=== PATIENT | male | born 1995 | race Caucasian/White ===

== ENCOUNTER → 2020-07-24 15:15 | Outpatient (CLI) | payer OTHER, SELFPAY ==
[2016-10-13 18:40] VITALS: BMI 20.3
[2020-07-24 16:06] LABS: Absolute Lymphocyte Count 2.85 X10^3/uL (0.83-4.51); Basophil# 0.03 X10^3/uL; Basophil% 0.2 % (0-1); Eosinophil# 0.25 X10^3/uL; Hematocrit 46.8 % (40-54); Lymphocyte # 2.85 X10^3/ul (4.0); Lymphocyte % 22.9 % (19-41); Mean Corp Hgb Conc 34.2 g/dL (32-36); Mean Corpuscular Hgb 30.7 pg (27.0-32.0); Mean Corpuscular Volume 89.8 fL (80-94); Mean Platelet Vol. 9.3 fl (6.2-12.0); Monocyte# 1.29 X10^3/uL; Monocyte% 10.4 % (0-10); NRBC Flagged by Analyzer 0 % (0-5); Neutrophil % 64.2 % (47-70); Platelet Count 232 K/mm3 (150-450); RBC Distribution Width CV 11.9 % (11.6-14.6); RBC Distribution Width SD 38.5 fl (35.1-43.9); Red Blood Count 5.21 M/mm3 (4.6-6.2); White Blood Count 12.5 K/mm3 (4.4-11.0)
[2020-07-24 16:35] LABS: ALB/GLOB Ratio 1.3 RATIO (0.9-2.4); AST(SGOT) 15 U/L (15-37); Alanine Aminotransfer ALT/SGPT 24 U/L (16-61); Albumin, Serum 4.2 g/dL (3.2-5.0); Alkaline Phosphatase 62 U/L (45-117); Anion Gap 6 (5-15); BUN 12 mg/dL (7-18); BUN/Creat Ratio 10.4 RATIO (10-20); Calcium,Total 9.4 mg/dL (8.5-10.1); Chloride 106 mmol/L (98-107); Cholesterol 146 mg/dL (200); Creatinine, Serum 1.15 mg/dL (0.70-1.30); EST Glomerular Filtration Rate 81 mL/min (>60); Est Glom Filt Rate - Afr Amer 98 mL/min (>60); Globulin 3.3 g/dL (2.2-4.2); Glucose 61 mg/dL (74-106); High Density Lipoprotein 57 mg/dL; Potassium 3.9 mmol/L (3.5-5.1); Protein, Total 7.5 g/dL (6.4-8.2); Sodium Level 143 mmol/L (136-145); Thyroid Stim Hormone (TSH) 1.22 uIU/mL (0.358-3.74); Triglycerides 129 mg/dL; Very Low Density Lipoprotein 26 mg/dL (5-40)
[2020-07-25 08:04] LABS: Vitamin B12 395 pg/mL (211-911); Vitamin D,25 Hydroxy 52.4 ng/mL
== END ==
PROVIDERS: PCP Family Medicine
DX: F31.13 Bipolar disorder, current episode manic without psychotic features, severe (principal); Z79.899 Other long term (current) drug therapy
CPT/HCPCS: 36415; 80053; 80061; 82306; 82607; 82746; 84146; 84443; 85025

== ENCOUNTER 2021-11-23 16:11 | Outpatient (CLI) | payer OTHER, SELFPAY ==
--- NOTE | 2021-11-23 16:50 | RAD_ITS ---
STUDY: XR Knee Complete 4 Views or More 11/23/2021 5:29 PM REASON FOR EXAM: Male, 25 years old. PAIN TECHNIQUE: XR Knee Complete 4 Views or More COMPARISON: None. FINDINGS: Normal visualized distal femur. Normal visualized proximal tibia and fibula. Normal proximal tibiofibular articulation. Normal medial femorotibial compartment. Normal lateral femorotibial compartment. Normal patellofemoral articulation. The soft tissue structures are unremarkable. RAD/Knee 4 or More Views IMPRESSION: There are no acute findings. Electronically Signed: Shoaib Diaz MD at 17:30 EST , Service support ,
== END 2021-11-23 23:59 | disposition short-term general hospital (02) ==
PROVIDERS: PCP Family Medicine; Referring Provider Physician Assistant; Visit Provider Physician Assistant
DX: M25.461 Effusion, right knee (principal)
CPT/HCPCS: 73564

== ENCOUNTER 2022-11-11 15:29 | Emergency (ER) | payer OTHER, SELFPAY ==
[2022-11-11 15:29] VITALS: BP 134/70; PULSE 61; RESP 18; TEMP 36.6; O2SAT 99; BMI 22.4
--- NOTE | 2022-11-11 15:38 | EX.ED.UPPERE ---
HPI History of Present Illness Chief Complaint: Wound Informant: patient and spouse/S.O. Narrative Narrative: Patient presents after accidentally putting a drill bit through his left nondominant hand thumb shortly before arrival. The bit broke causing the drill to moved to the side causing injury. He denies numbness tingling or limitation in range of motion but moving the thumb does hurt more. No active bleeding. Last tetanus is unknown. Denies any other injury or recent illness. Review of systems does indicate prior surgery on the right hand but none on the left. He is also on Dupixent for eczema. But he has not been ill recently. No abnormal history of bleeding. No known major immunosuppression other than possible mild suppression from Dupixent. No numbness or weakness. Past medical history: Eczema Medication Dupixent Allergies: None Surgery plate right hand, vasectomy Lives independently. PFSH PFS Medical History no medical history Home Medications naproxen 500 mg tablet 500 mg PO BID PRN #20 tabs 10/13/16 [Rx Last Taken Unknown] cephalexin 500 mg capsule 500 mg PO Q6 #40 caps 11/11/22 [Rx Last Taken Unknown] Allergy/AdvReac Type Severity Reaction Status Date / Time No Known Allergies Allergy Verified 11/11/22 15:31 Social History Smoking Status: Never smoker EXAM Physical Exam Narrative Exam Narrative: Patient awake alert no acute distress. He walks back easily with a normal based gait. No sign of head trauma. Breathing is easy and unlabored. No limitation of motion of arms or legs. He does have a small hole through the left thumb both in and out. This is in the lateral portion of the thumb overlying the proximal phalanx area. Sensation is intact distally. Full range of motion including opposing thumb is intact. Flexion extension is intact. No notable swelling. No bleeding. Const Vital Signs: 11/11/22 15:29 Temperature 98 F Temperature Source Temporal Pulse Rate 61 Respiratory Rate 18 Blood Pressure 134/70 H Blood Pressure Mean 91 Pulse Ox 99 Oxygen Delivery Method Room Air MDM MDM MDM Narrative Medical decision making narrative: Tetanus is updated as it is unknown when he last had this. We did initiate antibiotics due to the close nature of this wound and difficulty cleaning that out. X-ray will be obtained. My independent interpretation of this patient's three-view x-ray of his left thumb shows no sign of bony involvement. I do not see any foreign material. I see no air in the tissue. There looks to be an avulsion fracture from the volar distal phalanx but this does not look new and is clinically not present. Radiology interpretation is pending at this moment. I also reviewed our chart for important information. This verifies that the surgery done in his hand back in May 2014 was the right hand and not the hand that was injured today. I did talk with this patient that this is a risk for infection. These puncture wounds do not clean easily. I cannot do incision and drain of these. I could do more damage than good. He is being watched here. We initiated antibiotics early. We gave him tetanus. I will get him home on antibiotics. If he gets redness, swelling, increased pain, drainage, odor, fevers, red streak up his finger or hand or arm or any other concerns he should return. Final reading by radiology also was negative x-ray of finger. Discharge Plan Triage Chief Complaint: Wound ED Provider: Lorenzo Rowe Dx/Rx/DC Orders Clinical Impression: Puncture wound of left thumb, Accident caused by drilling tool Instructions: ED Puncture Wound (General) Prescriptions: New cephalexin [cephalexin] 500 mg capsule 500 mg PO Q6 Qty: 40 0RF No Action naproxen 500 MG tablet 500 mg PO BID PRN Qty: 20 0RF Primary Care Provider: Saeid Fowler Referrals: Pablo Roes MD [Med Staff - Active Staff] - 3-5 Days Saeid Fowler MD [Primary Care Provider] - 3-5 Days if not improving Disposition Disposition: Home, Self Care
--- NOTE | 2022-11-11 16:02 | RAD_ITS ---
EXAM: XR LEFT FINGERS, 2 OR MORE VIEWS CLINICAL INDICATION: Trauma TECHNIQUE: Frontal, lateral and oblique views of the fingers of the left hand. This report was created using [employer] report generation technology. COMPARISON: None. FINDINGS: BONES/JOINTS: Unremarkable. No acute fracture. No subluxation. Normal alignment. Preservation of the joint space. No sclerotic or destructive changes observed. SOFT TISSUES: Unremarkable. No soft tissue swelling or gas. No radiopaque foreign body. RAD/Finger(s) Min 2 Views IMPRESSION: Negative x-rays of the visualized left fingers. Electronically Signed: Shoaib Diaz MD at 16:15 EST ,
[2022-11-11] MEDS: Cephalexin 250 MG Capsule 500 MG PO (16:18)
[2022-11-11 16:43] VITALS: PULSE 68; RESP 17; O2SAT 99
== END 2022-11-11 17:12 | disposition home or self-care (01) ==
LOC: ED 16:04
PROVIDERS: Emergency Provider Emergency Medicine; PCP Family Medicine; Visit Provider Emergency Medicine
DX: S61.032A Puncture wound without foreign body of left thumb without damage to nail, initial encounter (principal); L30.9 Dermatitis, unspecified; W29.8XXA Contact with other powered hand tools and household machinery, initial encounter
CPT/HCPCS: 73140; 90715; 99283

== ENCOUNTER → 2025-03-26 | Outpatient (CLI) | payer OTHER, SELFPAY ==
--- NOTE | 2025-03-26 08:10 | RAD_ITS ---
PROCEDURE: CHEST PA AND LATERAL 03/26/2025 REASON FOR EXAM: COUGH TECHNIQUE: Frontal and lateral views of the chest. COMPARISON: None FINDINGS: Hardware: None Heart: The heart size is normal. Mediastinum: The mediastinal contour is unremarkable. Lungs: The lungs are clear. Bones: The bones are unremarkable. RAD/Chest PA and Lateral IMPRESSION: NEGATIVE CHEST Reading Location: [place] [id number]
== END | disposition home or self-care (01) ==
LOC: RAD 07:59
PROVIDERS: PCP Family Medicine; Referring Provider Nurse Practitioner Family; Visit Provider Nurse Practitioner Family
DX: R05.1 Acute cough (principal)
CPT/HCPCS: 71046

== ENCOUNTER 2025-05-01 19:08 | Emergency (ER) | payer OTHER, SELFPAY ==
[2025-05-01 19:09] VITALS: BP 131/77; PULSE 75; RESP 14; TEMP 36.6; O2SAT 100; BMI 25.2
--- OUTSIDE RECORDS SUMMARY | 2025-05-01 19:23 | XMS RPT_ITS | CCD ---
Author Organization [facility] Care Team Providers Care Scenario Writer Name Role Phone Tammy Fowler MD Primary Care Provider Tammy Fowler MD Primary Care Provider Tera SOCIAL ORGANIZATION PROFESSOR.Sybil ALAS Unavailable Werner SOCIAL ORGANIZATION PROFESSOR.Cinda ALAS Unavailable [phone] Dr. Tammy Fowler MD Primary Care Provider Linsey Clemens Attending Provider Linsey Clemens Referring Provider LINSEY VAUGHN Referring Unavailable TAMMY FOWLER Primary Care Unavailable TAMMY FOWLER Primary Care Unavailable LINSEY VAUGHN Attending Unavailable CINDA CALDERA Attending Unavailable TAMMY FOWLER Primary Care Unavailable CINDA CALDERA Attending Unavailable TAMMY FOWLER Primary Care Unavailable Tammy Fowler Primary Care Unavailable Linsey Vaughn Referring Unavailable Linsey Vaughn Attending Unavailable Medications Current Medications Medication Drug Class(es) Dates Sig (Normalized) Sig (Original) atomoxetine 40 mg oral capsule (1 source) Norepinephrine Reuptake Inhibitor Start: 01-07-2025 End: 02-06-2025 take 1 capsule by mouth once daily atomoxetine (STRATTERA) 40 mg capsule Indications: ADHD (attention deficit hyperactivity disorder), predominantly hyperactive impulsive type Take 1 capsule by mouth once daily. 30 capsule 01/07/2025 02/06/2025 Active cephalexin 500 mg oral capsule (2 sources) Cephalosporin Antibacterial Start: 11-11-2022 take 1 capsule by mouth every six hours Cephalexin 500 mg capsule Active 500 mg PO EVERY 6 HOURS 40 November 11, 2022 1:00am diazePAM 10 mg oral tablet (1 source) Benzodiazepine Start: 08-03-2022 End: 08-04-2022 diazePAM (VALIUM) 10 mg tablet Indications: Vasectomy evaluation 1 tab prior to Vasectomy Do not start before August 03, 2022. 1 tablet 0 08/03/2022 08/04/2022 Active Comment on above: 1 tab prior to Vasec chloe Do not start before August 03, 2022. doxycycline hyclate 100 mg oral capsule (1 source) Tetracycline-class Drug Start: 01-28-2024 End: 02-04-2024 take 1 capsule by mouth twice daily doxycycline hyclate (VIBRAMYCIN) 100 mg capsule Indications: Sinobronchitis Take 1 capsule by mouth two times a day for 7 days. 14 capsule 0 01/28/2024 02/04/2024 Active Comment on above: Take 1 capsule by mo [facility] two times a day for 7 days. 2 ml dupilumab 150 mg/ml auto-injector (9 sources) Interleukin-4 Receptor alpha Antagonist Start: 04-12-2022 inject 300 mg by subcutaneous injection every other week DUPIXENT PEN 300 mg/2 mL pen Inject 300 mg subcutaneously every 2 weeks. 04/12/2022 Active Comment on above: Inject 300 mg subcut aneously every 2 weeks. multivitamin tablet (9 sources) take 1 tablet by mouth once daily multivitamin tablet Take 1 tablet by mouth once daily. Active take 1 tablet by mouth once giovana y multivitamin tablet Take 1 tablet by mouth once daily. 0 Active Comment on above: Take 1 tablet by yan once daily. naproxen 500 mg oral tablet (2 sources) Nonsteroidal Anti-inflammatory Drug Start: 10-13-20 16 take 1 tablet by mouth twice daily as needed Naproxen 500 MG tablet Active 500 mg PO TWICE DAILY NEEDED October 13, 2016 1:00am predniSONE 20 mg oral tablet (1 source) Start: 01-28-20 24 End: 02-01-20 24 take 2 tablets by mouth once daily at mealtime predniSONE (DELTASONE) 20 mg tablet Indications: Sinobronchitis Take 2 tablets by mouth once daily for 4 days. Take daily with food. 8 tablet 0 01/28/2024 02/01/2024 Active Comment on above: Take 2 tablets by mo [facility] once daily for 4 days. Take daily with food. Completed/Discontinued Medications Medication Drug Class(es) Dates Sig (Normalized) Sig (Original) FLUoxetine 40 mg oral capsule (9 sources) Serotonin Reuptake Inhibitor Start: 07-16-2024 End: 01-07-2025 take 1 capsule by mouth once daily FLUoxetine (PROZAC) 40 mg capsule Indications: Anxiety with depression , Irritability Take 1 capsule by mouth once daily. 90 capsule 07/16/2024 01/07/2025 Discontinued (Discontinued by Patient) Start: 06-11-2024 End: 09-09-2024 take 1 capsule by mouth once daily FLUoxetine (PROZAC) 20 mg capsule Indications: Anxiety with depression , Irritability Take 1 capsule by mouth once daily. 90 capsule 06/11/2024 07/16/2024 Discontinued (Adjust Sig - Block E-Cancel) Start: 02-28-2024 End: 06-11-2024 take 1 capsule by mouth once daily FLUoxetine (PROZAC) 10 mg capsule Indications: Irritability Take 1 capsule by mouth once daily. 30 capsule 2 02/28/2024 06/11/2024 Discontinued (Clinical Decision) sertraline 100 mg oral tablet (1 source) Serotonin Reuptake Inhibitor End: 05-22-2022 take 1 tablet by mouth once daily sertraline (ZOLOFT) 100 mg tablet Take 100 mg by mouth once daily. 0 05/22/2022 Discontinued Comment on above: Take 100 mg by mouth once daily. Problems Active Problems Problem Classification Problem Date Documented Date Episodic/Chronic Anxiety disorders (5 sources) Mixed anxiety and depressive disorder; Translations: [Other specified anxiety disorders] Onset: 06-11-2024 06-11-2024 Chronic Attention-deficit, conduct, and disruptive behavior disorders (1 source) Attention deficit hyperactivity disorder, predominantly hyperactive impulsive type; Translations: [Attention-deficit hyperactivity disorder, predominantly hyperactive type] 01-07-2025 Chronic Attention-deficit, conduct, and disruptive behavior disorders (1 source) Attention-deficit hyperactivity disorder, predominantly hyperactive type; Translations: [ADHD (attention deficit hyperactivity disorder), predominantly hyperactive impulsive type] Onset: 01-07-2025 Chronic Contraceptive and procreative management (4 sources) Patient encounter status; Translations: [Encounter for other general counseling and advice on contraception] Episodic E Codes: Cut/pierceb (2 sources) Accidents caused by cutting and piercing instruments or objects ; Translations: [Contact with other powered hand tools and household machinery, initial encounter] 01-16-2023 Episodic Headache; including migraine (2 sources) Headache; Translations: [Headache] 04-27-2021 Episodic Open wounds of extremities (2 sources) Puncture wound of thumb of left hand; Translations: [Puncture wound without foreign body of left thumb without damage to nail, initial encounter] 11-19-2022 Episodic Other circulatory disease (2 sources) Nasal discharge; Translations: [Other specified symptoms and signs involving the circulatory and respiratory systems] 03-17-2021 Episodic Other circulatory disease (1 source) Elevated blood-pressure reading without diagnosis of hypertension; Translations: [Elevated blood-pressure reading, without diagnosis of hypertension] 01-07-2025 Episodic Other circulatory disease (1 source) Elevated blood-pressure reading, without diagnosis of hypertension; Translations: [Elevated blood pressure reading without diagnosis of hypertension] Onset: 01-07-2025 Episodic Other lower respiratory disease (2 sources) Cough; Translations: [Cough] 03-17-2021 Episodic Other upper respiratory disease (2 sources) Congestion of nasal sinus; Translations: [Nasal congestion] 03-17-2021 Episodic Other upper respiratory infections (1 source) Chronic sinusitis; Translations: [Chronic sinusitis, unspecified] 01-28-2024 Chronic Other upper respiratory infections (2 sources) Sore throat symptom; Translations: [Acute pharyngitis, unspecified] 03-17-2021 Episodic Otitis media and related conditions (1 source) Finding of fluid behind tympanic membrane; Translations: [Unspecified nonsuppurative otitis media, left ear] 01-28-2024 Episodic Screening and history of mental health and substance abuse codes (2 sources) Encounter for screening for depression; Translations: [Encounter for screening examination for other mental health and behavioral disorders] Onset: 01-07-2025 Episodic Superficial injury; contusion (2 sources) Contusion of foot; Translations: [Contusion of right foot, initial encounter] 10-14-2016 Episodic Unclassified (2 sources) Acute cough; Translations: [Acute cough] Onset: 03-26-2025 Past or Other Problems Problem Classification Problem Date Documented Da te Episodic/Chronic Anxiety disorders (5 sources) Feeling irritable; Translations: [Irritability and anger] Onset: 06-11-2024 06-11-2024 Episodic Other lower respiratory disease (6 sources) Breathing painful; Translations: [Chest pain on breathing] Onset: 09-11-2010 Resolved: 04-07-2018 04-07-2018 Episodic Results Test Name Value Interpretation Reference Range Walter Loredo 03-26-2025 CNOV Office Visit (UCTR ) DENTON JOLLEY ([id number]) 1995 M Date Time Provider Department 03/26/25 7:30 AM LINSEY VAUGHN [facility] During your visit today, we recorded the following information about you: Temperature Pulse Respiration Blood pressure 97.4 degrees 54/minute 18/minute 133/82 Weight 83.8 kg Linsey Vaughn APRN.[facility] 03/26/2025 9:23 AM Signed [facility] Subjective Denton Jolley is a 29 year old male. Patient presents with: Cough: Head and chest congestion x3 weeks HPI Dyspnea: - Onset this morning while driving to work. - Occurs at rest, worsens with exertion such as climbing stairs. - Denies history of asthma. - Denies smoking. Sinus Congestion: - Bilateral facial congestion x3 weeks. - Associated with significant pressure causing pounding sensation in upper teeth. - Denies odynophagia. Review of Systems Ears/Nose/Mouth/Throa t: (+) congestion, (+) tooth pain, (+) sinus pressure, (-) sore throat Respiratory: (+) shortness of breath Objective BP 133/82 Pulse (!) 54 Temp 36.3 ?C (97.4 ?F) Resp 18 Wt 83.8 kg (184 lb 11.9 oz) SpO2 100% BMI 25.06 kg/m? Physical Exam General: No acute distress. HEENT: Oropharynx without erythema. CV: Normal heart sounds. Resp: Lungs clear to auscultation. {1. Acute cough (R05.1) - Shortness of breath at rest and with exertion; lungs clear on auscultation, heart sounds normal. - Ordered chest X-ray to rule out pneumonia; results negative. 2. Rhinosinusitis (J32.9) - Congestion for 3 weeks with pressure in cheeks and forehead, associated with dental pain. - Initiated doxycycline BID for 7 days. - Advised to follow up with primary care if symptoms worsen or do not improve. and Recording using [employer] software for draft documentation of the visit was discussed with the patient/authorized inventory representative; all questions welcomed and answered. Patient/authorized inventory representative agreed to proceed MDM Procedures Allergies As of Date: 03/26/2025 (No Known Allergies) Date Reviewed: 03/26/2025 Reviewed by: Latanya Zeng MA - Fully Assessed Reason for Visit: Cough [28] Cmt: Head and chest congestion x3 weeks Primary Visit Diagnosis:Acute cough [R05.1] Other Visit Diagnosis:Rhinosinusi tis [J32.9] Order(s):XR CHEST 2V FRONTAL/LAT [[id number]] Order #: [id number] FUTURE doxycycline (VIBRA-TABS) 100 mg tabletTake 1 tablet by mouth two times a day for 7 days.Disp: 14 tabletRfl: 0 Prescriptions as of 03/26/2025 - doxycycline (VIBRA-TABS) 100 mg tablet Take 1 tablet by mouth two times a day for 7 days. - atomoxetine (STRATTERA) 40 mg capsule Take 1 capsule by mouth once daily. - DUPIXENT PEN 300 mg/2 mL pen Inject 300 mg subcutaneously every 2 weeks. - multivitamin tablet Take 1 tablet by mouth once daily. Problem List As Of Date 03/26/2025 Noted Resolved Painful respiration [R07.1] 09/11/2010 04/07/2018 Prescriptions ordered this encounter Disp Refills Start End DOXYCYCLINE HYCLATE 100 MG TABLET 14 t* 0 03/26/2025 04/02/2025 Route: ORAL Sig: Take 1 tablet by mouth two times a day for 7 days. Encounter Status:Closed by LINSEY VAUGHN on 03/26/25 [facility] 03-26-2025 [place] Telephone (UCWSTR) DENTON JOLLEY ([id number]) 1995 M Date Time Provider Department 03/26/25 LINSEY VAUGHN [facility] During your visit today, we recorded the following information about you: Linsey Vaughn APRN.PROCESS SAFETY ENGINEERING TECHNOLOGIST 03/26/2025 9:24 AM Signed Please call let patient know he is negative for chest x-ray. Let patient know I called in doxycycline twice a day for a week for his sinus infection. If his symptoms do not improve follow-up with primary care Linsey Vaughn APRN.PROCESS SAFETY ENGINEERING TECHNOLOGIST 03/26/2025 10:27 AM Signed Called back talked to patient about negative chest x-ray. Did update patient on medications that were called in. Patient denies any questions. Allergies As of Date: 03/26/2025 (No Known Allergies) Date Reviewed: 03/26/2025 Reviewed by: Latanya Zeng MA - Fully Assessed Prescriptions as of 03/26/2025 - doxycycline (VIBRA-TABS) 100 mg tablet Take 1 tablet by mouth two times a day for 7 days. - atomoxetine (STRATTERA) 40 mg capsule Take 1 capsule by mouth once daily. - DUPIXENT PEN 300 mg/2 mL pen Inject 300 mg subcutaneously every 2 weeks. - multivitamin tablet Take 1 tablet by mouth once daily. Problem List As Of Date 03/26/2025 Noted Resolved Painful respiration [R07.1] 09/11/2010 04/07/2018 Encounter Status:Closed by LINSEY VAUGHN on 03/26/[address] [facility] Chest PA and Lateralon 03-26 Chest PA and Lateral [facility] Imaging Services [address] [place] [id number] Chest PA and Lateral MR#: [id number] Acct: [id number] Name: DENTON JOLLEY Rep #: [id number] : 1995 M 29 From: Tyrel warren MD PCP: Dr. Tammy Fowler MD Status: [facility] Study: Chest PA and Lateral Date of Exam: 03/26/25 Exam# [id number] Ordering Dr: Linsey Vaughn NP PROCEDURE: CHEST PA AND LATERAL 03/26/2025 REASON FOR EXAM: COUGH TECHNIQUE: Frontal and lateral views of the chest. COMPARISON: None FINDINGS: Hardware: None Heart: The heart size is normal. Mediastinum: The mediastinal contour is unremarkable. Lungs: The lungs are clear. Bones: The bones are unremarkable. RAD/Chest PA and Lateral IMPRESSION: NEGATIVE CHEST Reading Location: [place] [address] CC: SUSU Vaughn; Dr. Tammy Fowler MD Collar Trimmer: Signed Normal [facility] CNOVon 01-07-2025 CNOV Office Visit (FAMPWS ) DENTON JOLLEY ([id number]) 1995 M Date Time Provider Department 01/07/25 4:20 PM [facility] During your visit today, we recorded the following information about you: Temperature Pulse Blood pressure Weight 97.8 degrees 68/minute 140/78 85.3 kg Cinda Caldera APRN.[facility] 01/07/2025 4:52 PM Signed This is a 29 year old male who presents today with: Patient presents with: ADD/ADHD HISTORY OF PRESENT ILLNESS: Denton Bryant Ibrahima is a 29 year old male. Patient presents with: ADD/ADHD [place] like fluoxetine just numbed him out. Behavior was flat. Didn't help his racing mind Hyper- focus- if he can't complete that day, he can't cope Very clean- maybe OCD, messing with relationship Forgetful Edgy Fidgets Can;t sit still, mind always somewhere else- looking for next thing Easily distracted, no MVA Impulsive buying Interrupts conversation Impatient Mood swings Quick temper Teachers told him that he didn't pay attention Impulsive Worried about heart problems Dad 66- CABG Mom 56- valvular heart disease, CHF Gets chest pain- not related to exertion PAST MEDICAL HISTORY: PAST MEDICAL HISTORY Diagnosis Date Atopic eczema 2020 Depression PMH - PAST MEDICAL HISTORY OF 06/27/2001 normal color vision PAST SURGICAL HISTORY Procedure Laterality Date PAST SURGICAL HISTORY OF right hand TONSILLECTOMY PRIMARY/SECONDARY ALLERGIES Patient has no known allergies. MEDICATIONS Current Outpatient Medications Medication Sig FLUoxetine (PROZAC) 40 mg capsule Take 1 capsule by mouth once daily. DUPIXENT PEN 300 mg/2 mL pen Inject 300 mg subcutaneously every 2 weeks. (Patient taking differently: Inject 300 mg subcutaneously. Pt taking monthly or when having a flare up) multivitamin tablet Take 1 tablet by mouth once daily. No current facility-administered medications for this visit. FAMILY HISTORY Problem Relation Age of Onset other (murmur) Mother Social History Tobacco Use Smoking status: Never Smokeless tobacco: Never Vaping Use Vaping status: Never Used Substance Use Topics Alcohol use: Yes Comment: 1-2 beers per month Drug use: Not Currently EXAM: BP 140/78 Pulse 68 Temp 36.6 ?C (97.8 ?F) (Right Tympanic) Wt 85.3 kg (188 lb) SpO2 100% BMI 25.50 kg/m? PHYSICAL EXAM: Physical Exam Vitals reviewed. Constitutional: Appearance: Normal appearance. HENT: Head: Normocephalic. Cardiovascular: Rate and Rhythm: Normal rate and regular rhythm. Pulses: Normal pulses. Heart sounds: Normal heart sounds. Pulmonary: Effort: Pulmonary effort is normal. Breath sounds: Normal breath sounds. Abdominal: General: Bowel sounds are normal. Palpations: Abdomen is soft. Tenderness: There is no abdominal tenderness. There is no guarding or rebound. Musculoskeletal: General: Normal range of motion. Comments: Moves all ext. And walks w/o assistive device Skin: General: Skin is warm and dry. Neurological: Mental Status: He is alert and oriented to person, place, and time. LABS: ASSESSMENT/PLAN: 1. Elevated blood pressure reading without diagnosis of hypertension - ICD9: 796.2, ICD10: R03.0 (primary diagnosis) - Encouraged dietary sodium restriction/DASH diet - Recommended regular aerobic exercise. - Recommend home blood pressure monitoring, to bring results in on next visit - Goal of BP <130/80 - DME SUPPLY OR ACCESSORY, NOS send in 3 BP readings 2. Screening for depression - ICD9: V79.0, ICD10: Z13.31 Stable - DEPRESSION SCREENING 3. Encounter for screening examination for other mental health and behavioral disorders - ICD9: V79.8, ICD10: Z13.39 Stable - ANXIETY SCREENING 4. ADHD (attention deficit hyperactivity disorder), predominantly hyperactive impulsive type - ICD9: 314.01, ICD10: F90.1 Wanting to try ADHD medication - ATOMOXETINE 40 MG CAPSULE daily Discussed treatment plan and patient voices understanding. Patient's questions answered appropriately. Medications and potential side effects were discussed and patient voices understanding. Return to the office as scheduled or as needed for worsening/no improvement. ZEV Dyer Jacqueline A, APRN.CNP 01/07/2025 4:52 PM Addendum 1) Strattera 40 mg daily 2) DME- BP cuff sent to [facility] D[facility] store 3) Send me 3 BP readings in 1 or 2 weeks Allergies As of Date: 01/07/2025 (No Known Allergies) Date Reviewed: 01/07/2025 Reviewed by: Lori Wilkes MA - Fully Assessed Reason for Visit: ADD/ADHD [790] Primary Visit Diagnosis:Elevated blood pressure reading without diagnosis of hypertension [R03.0] Other Visit Diagnoses:Screening for depression [Z13.31] Encounter for screening examination for other mental health and behavioral disorders [Z13.39] ADHD (attention deficit hyperactivity disorder) (more content not included)... [facility] 07-16-2024 [facility] Telephone (ERIC) DENTON JOLLEY ([id number]) 1995 Date Time Provider Department [facility] During your visit today, we recorded the following information about you: Yoselin Dietrich 07/16/2024 3:56 PM Signed Patient said he was told his rx fluoxetine [address] [facility]. It was updated in chart, but not sent. He would like a call back at [phone] when sent. Tammy Fowler MD 07/16/2024 4:20 PM Signed Sorry sent Ej Faria MA 07/16/2024 4:33 PM Signed Called and left generic message on that Rx has been sent to Pharmacy as requested. If questions to contact office and speak with Triage Nurse. Ej Faria MA Allergies As of Date: 07/16/2024 (No Known Allergies) Date Reviewed: 06/11/2024 Reviewed by: Cinda Caldera APRN.PROCESS SAFETY ENGINEERING TECHNOLOGIST - Fully Assessed Reason for Visit: Rx updated, but not sent to pharmacy [Other] Visit Diagnoses:Anxiety with depression [F41.8] Irritability [R45.4] Order(s):FLUoxetine (PROZAC) 40 mg capsuleTake 1 capsule by mouth once daily.Disp: 90 capsuleRfl: 0 Prescriptions as of 07/16/2024 - FLUoxetine (PROZAC) 40 mg capsule Take 1 capsule by mouth once daily. - DUPIXENT PEN 300 mg/2 mL pen Inject 300 mg subcutaneously every 2 weeks. - multivitamin tablet Take 1 tablet by mouth once daily. Problem List As Of Date 07/16/2024 Noted Resolved Painful respiration [R07.1] 09/11/2010 04/07/2018 Prescriptions ordered this encounter Disp Refills Start End FLUOXETINE 40 MG CAPSULE 90 c* 0 07/16/2024 10/14/2024 Route: ORAL Sig: Take 1 capsule by mouth once daily. Medications Discontinued During This Encounter Prescriptions - FLUoxetine (PROZAC) 40 mg capsule (Discontinued) Take 1 capsule by mouth once daily. Encounter Status:[facility][id number]) 1995 M Date Time Provider Department 07/16/24 CINDA CALDERA [facility] During your visit today, we recorded the following information about you: Vanessa Soria LPN 07/16/2024 2:29 PM Signed Patient is wanting to increase to Fluoxetine to 40mg, feels he has leveled out, not really effects anymore. [facility] D[facility] took his last pill this AM, asking if RX could go today, Patient will check with pharmacy later. Tammy Garcia LPN, MD 07/16/2024 2:35 PM Signed Rx sent. Please schedule follow up with one of us Lori Wilkes MA 07/16/2024 3:09 PM Signed Spoke with pt and advised needed a one moth medication follow up. He will call back when he knows his 's schedule. Lori Wilkes MA Allergies As of Date: 07/16/2024 (No Known Allergies) Date Reviewed: 06/11/2024 Reviewed by: Cinda Caldera APRN.PROCESS SAFETY ENGINEERING TECHNOLOGIST - Fully Assessed Visit Diagnoses:Anxiety with depression [F41.8] Irritability [R45.4] Order(s):FLUoxetine (PROZAC) 40 mg capsuleTake 1 capsule by mouth once daily.Disp: 90 capsuleRfl: 0 Prescriptions as of 07/16/2024 - FLUoxetine (PROZAC) 40 mg capsule Take 1 capsule by mouth once daily. - DUPIXENT PEN 300 mg/2 mL pen Inject 300 mg subcutaneously every 2 weeks. - multivitamin tablet Take 1 tablet by mouth once daily. Problem List As Of Date 07/16/2024 Noted Resolved Painful respiration [R07.1] 09/11/2010 04/07/2018 Prescriptions ordered this encounter Disp Refills Start End FLUOXETINE 40 MG CAPSULE 90 c* 0 07/16/2024 10/14/2024 Class: Med Update Route: ORAL Sig: Take 1 capsule by mouth once daily. Medications Discontinued During This Encounter Prescriptions - FLUoxetine (PROZAC) 20 mg capsule (Discontinued) Take 1 capsule by mouth once daily. Encounter Status:Closed by LORI WILKES on 07/16/[address] [facility] CNOVon 06-11-2024 CNOV Office Visit (FAMPWS ) DENTON JOLLEY ([id number]) 1995 M Date Time Provider Department 06/11/24 3:40 PM [facility] During your visit today, we recorded the following information about you: Pulse Blood pressure Weight Height 68/minute 136/80 78.5 kg 1.829 m Cinda Caldera APRN.[facility] 06/11/2024 3:57 PM Signed This is a 28 year old male who presents today with: Patient presents with: Follow Up HISTORY OF PRESENT ILLNESS: Denton Jolley is a 28 year old male. Patient presents with: Follow Up Hyper- focus- some improvement Very clean- maybe OCD, messing with relationship Forgetful- no change Edgy- some improvement Fidgets- still noting Can;t sit still, mind always somewhere else- looking for next thing Easily distracted, no MVA Impulsive buying Interrupts conversation Impatient- some better Mood swings- some improvement Quick temper- some improvement Still sleeping good Exercising- lifting weights PAST MEDICAL HISTORY: PAST MEDICAL HISTORY No date: Atopic eczema Comment: 2020 No date: Depression 06/27/2001: PMH - PAST MEDICAL HISTORY OF Comment: normal color vision PAST SURGICAL HISTORY No date: PAST SURGICAL HISTORY OF Comment: right hand 2001: TONSILLECTOMY PRIMARY/SECONDARY ALLERGIES Patient has no known allergies. MEDICATIONS Current Outpatient Medications Medication Sig FLUoxetine (PROZAC) 10 mg capsule Take 1 capsule by mouth once daily. DUPIXENT PEN 300 mg/2 mL pen Inject 300 mg subcutaneously every 2 weeks. multivitamin tablet Take 1 tablet by mouth once daily. No current facility-administered medications for this visit. FAMILY HISTORY Problem Relation Age of Onset other (murmur) Mother Social History Tobacco Use Smoking status: Never Smokeless tobacco: Never Vaping Use Vaping Use: Never used Substance Use Topics Alcohol use: Yes Comment: 1-2 beers per month Drug use: Not Currently EXAM: BP 140/80 Pulse 68 Ht 182.9 cm (6') Wt 78.5 kg (173 lb) SpO2 98% BMI 23.46 kg/m? PHYSICAL EXAM: General Appearance: Well appearing, alert, in no acute distress, well-hydrated, well nourished.. Mood: good eye contact, pleasant, cooperative, oriented X 3, bright affect. Thoughts are organized, clear, direct, appropriate LABS: ASSESSMENT/PLAN: 1. Anxiety with depression - ICD9: 300.4, ICD10: F41.8 (primary diagnosis) - Increase fluoxetine to 20 mg daily 2. Irritability - ICD9: 799.22, ICD10: R45.4 Improvement - Increase fluoxetine to 20 mg daily Discussed treatment plan and patient voices understanding. Patient's questions answered appropriately. Medications and potential side effects were discussed and patient voices understanding. Return to the office as scheduled or as needed for worsening/no improvement. ZEV Dyer Jacqueline A, APRN.CNP 06/11/2024 3:57 PM Addendum 1) Increase fluoxetine to 20 mg daily 2) Follow up in 3 months Allergies As of Date: 06/11/2024 (No Known Allergies) Date Reviewed: 06/11/2024 Reviewed by: Cinda Caldera APRN.CNP - Fully Assessed Reason for Visit: Follow Up [171] Primary Visit Diagnosis:Anxiety with depression [F41.8] Other Visit Diagnosis:Irritabilit y [R45.4] Order(s):FLUoxetine (PROZAC) 20 mg capsuleTake 1 capsule by mouth once daily.Disp: 90 capsuleRfl: 0 Prescriptions as of 06/11/2024 - FLUoxetine (PROZAC) 20 mg capsule Take 1 capsule by mouth once daily. - DUPIXENT PEN 300 mg/2 mL pen Inject 300 mg subcutaneously every 2 weeks. - multivitamin tablet Take 1 tablet by mouth once daily. Problem List As Of Date 06/11/2024 Noted Resolved Painful respiration [R07.1] 09/11/2010 04/07/2018 Other instructions from your clinician: 1) Increase fluoxetine to 20 mg daily 2) Follow up in 3 months Prescriptions ordered this encounter Disp Refills Start End FLUOXETINE 20 MG CAPSULE 90 c* 0 06/11/2024 09/09/2024 Route: ORAL Sig: Take 1 capsule by mouth once daily. Medications Discontinued During This Encounter Prescriptions - FLUoxetine (PROZAC) 10 mg capsule (Discontinued) Take 1 capsule by mouth once daily. Level of Service: OFFICE/OUTPATIENT ESTABLISHED LOW MDM 20 MIN [26551] Disposition: Return in about 3 months (around 09/11/2024) for stress level. Follow-up and Disposition History for Encounter Date Provider Department Center 06/11/2024 [id number]-PZIDAOOLIVER CALDERA*FAMPWS [facility] [place] Encounter Status:Closed by CINDA CALDERA on 06/11/[address] [facility] CBC W Auto Differential pane l (Bld)on 02-28-2024 Basophils (Bld) [#/Vol] [facility] Basophils/100 WBC (Bld) 0.2 % [facility] Differential cell count method Nom (Bld) Auto [facility] Eosinophils (Bld) [#/Vol] 0.10 10*3/uL [facility] Eosinophils/100 WBC (Bld) 1.1 % [facility] Erythrocyte distribution width (RBC) [Ratio] 11.9 % 11.5 - 15.0 % [facility] Hematocrit (Bld) [Volume fraction] 46.1 % 39.0 - 51.0 % [facility] Hemoglobin (Bld) [Mass/Vol] 16.0 g/dL 13.0 - 17.0 g/dL [facility] Immature granulocytes (Bld) [#/Vol] 0.03 10*3/uL [facility] Immature granulocytes/100 WBC (Bld) 0.3 % [facility] Lymphocytes (Bld) [#/Vol] 3.16 10*3/uL [facility] Lymphocytes/100 WBC (Bld) 35.0 % [facility] MCH (RBC) [Entitic mass] 30.4 pg 26.0 - 34.0 pg [facility] MCHC (RBC) [Mass/Vol] 34.7 g/dL 30.5 - 36.0 g/dL [facility] MCV (RBC) [Entitic vol] 87.6 fL 80.0 - 100.0 fL [facility] Monocytes (Bld) [#/Vol] 0.77 10*3/uL [facility] Monocytes/100 WBC (Bld) 8.5 % [facility] Neutrophils (Bld) [#/Vol] 4.94 10*3/uL [facility] Neutrophils/100 WBC (Bld) 54.9 % [facility] Nucleated RBC (Bld) [#/Vol] NINF [facility] Nucleated RBC/100 WBC (Bld) [Ratio] 0.0 % /100 WBC [facility] Platelet mean volume (Bld) [Entitic vol] 10.5 fL 9.0 - 12.7 fL [facility] Platelets (Bld) [#/Vol] 226 10*3/uL [facility] RBC (Bld) [#/Vol] 5.26 10*6/uL 4.20 - 6.0 0 m/uL [facility] WBC (Bld) [#/Vol] 9.02 10*3/uL [facility] ALLIED HEALTHon 07-24-2020 ALLIED HEALTH HNO ID: [id number] Author: Lilly ReedRt) Mayi Tarango Service: Radiology Author Type: Color Card Maker Type: Allied Health Filed: 07/23/2020 11:27 PM Note Text: Radiology Service Progress Note PATIENT NAME: Denton Jolley DATE OF SERVICE: July 23, 2020 TIME: 11:26 PM PATIENT IDENTITY VERIFICATION COMPLETED USING TWO (2) IDENTIFIERS: Name and Date of confirmed by patient verbally. FALL SCREENING: Has the patient had 2 falls in the last year or 1 fall with injury or currently using an Ambulatory Assistive Device (Walker, Cane, Wheelchair, Crutches, etc.)? No PATIENT GENDER DATA: Male PATIENT RELEVANT IMPLANT DATA REVIEWED: Not Applicable RADIOLOGY DEPARTMENT: General X-ray: Exam(s) Completed: Lower Extremity X-Ray(s): Ankle, Right and Foot, Right: PERIPHERAL IV DATA: Not applicable SIGNED BY: RT Kassy July 23, 2020 11:26 PM [facility] ED NOTEon 07-24-2020 ED NOTE HNO ID: [id number] Author: Michelle Lees) MILAD Robison Service: ? Author Type: Registered Nurse Type: ED Notes Filed: 07/24/2020 12:07 AM Note Text: dr glez at bedside to talk with pt regarding results and plan of care. [facility] ED NOTE HNO ID: [id number] Author: Michelle Lees) MILAD Robison Service: ? Author Type: Registered Nurse Type: ED Notes Filed: 07/24/2020 12:07 AM Note Text: pt given dc instructions and follow up care he verbalized understanding. [facility] ED NOTE HNO ID: [id number] Author: Michelle ReedRn) MILAD Robison Service: ? Author Type: Registered Nurse Type: ED Notes Filed: 07/24/2020 12:01 AM Note Text: pt given air cast and crutches, [facility] ED NOTE HNO ID: [id number] Author: Michelle ReedRn) MILAD Robison Service: ? Author Type: Registered Nurse Type: ED Notes Filed: 07/23/2020 11:16 PM Note Text: xr at bedside [facility] ED NOTE HNO ID: [id number] Author: Michelle ReedRn) MILAD Robison Service: ? Author Type: Registered Nurse Type: ED Notes Filed: 07/23/2020 11:07 PM Note Text: dr glez in room [facility] ED NOTE HNO ID: [id number] Author: Michelle ReedRn) MILAD Robison Service: ? Author Type: Registered Nurse Type: ED Notes Filed: 07/23/2020 11:02 PM Note Text: pt offered ice pack [facility] ED PROV NOTEon 07-24-2020 ED PROV NOTE HNO ID: [id number] Author: Lavelle Glez MD Service: ? Author Type: Physician Type: ED Provider Notes Filed: 07/23/2020 11:56 PM Note Text: ED Provider Note Patient Name: Denton Jolley SERVICE DATE: 07/23/20 History Patient presents with: Ankle Injury: right Patient complains of injured his right ankle tonight when he twisted it while jumping in [place] bounce [place]. He is now unable to bear weight due to ankle pain in the area of the medial malleolus of the right ankle. PAST MEDICAL HISTORY Diagnosis Date - PM - PAST MEDICAL HISTORY OF 06/27/01 normal color vision PAST SURGICAL HISTORY Procedure Laterality Date - PAST SURGICAL HISTORY OF right hand - REMOVAL OF TONSILS,<10 Y/O 2002 FAMILY HISTORY Problem Relation Age of Onset - other (murmur [Other]) Mother Social History Tobacco Use - Smoking status: Never Smoker - Smokeless tobacco: Never Used Substance and Sexual Activity - Alcohol use: Yes Comment: 1-2 beers per month - Drug use: No - Sexual activity: Yes Partners: Female ALLERGIES No Known Allergies Review of Systems Constitutional: Negative. HENT: Negative. All other systems reviewed and are negative. Physical Exam BP 122/74 Pulse 102 Temp (Src) 98.5 (Oral) Resp 18 Ht 6' 0 (1.83m) Wt 160 lb (72.6kg) SpO2 97% BMI 21.70 kg/(m2). O2 Therapy: Room Air Physical Exam Vitals signs and nursing note reviewed. Constitutional: Appearance: Normal appearance. HENT: Head: Normocephalic. Nose: Nose normal. Eyes: Conjunctiva/sclera: Conjunctivae normal. Musculoskeletal: Comments: Tender medial aspect of right ankle; mild edema; lateral malleolus is non-tender; neuro, vascular, tendons intact Skin: General: Skin is warm and dry. Capillary Refill: Capillary refill takes less than 2 seconds. Neurological: Mental Status: He is alert and oriented to person, place, and time. Psychiatric: Mood and Affect: Mood normal. Behavior: Behavior normal. Thought Content: Thought content normal. Judgment: Judgment normal. Diagnostic Testing ED Labs Ordered and Reviewed - No data to display ..XR ANKLE GENERAL 3V AP/LAT/OBL RT (Results Pending) XR FOOT GENERAL 3V AP/LAT/OBL RT (Results Pending) Procedures X-ray of foot and ankle shows no fracture; will treat as for right ankle sprain; place in air cast and give crutches, follow-up with orthopedic family and consumer science professor PRN ED Course / Clinical Impression Clinical Impressions as of Jul 23 2344 Right ankle sprain Acute right ankle pain MDM / Disposition / Plan MDM SIGNATURE: MD Lavelle Zaragoza MD 07/23/20 2341 [facility] XR ANKLE 3V AP/LAT/OBL RTon 07-24-2020 XR ANKLE 3V AP/LAT/OBL RT * * *Final Report* * * DATE OF EXAM: Jul 23 2020 11:24PM MDX 5297 - XR ANKLE 3V AP/LAT/OBL RT / PROCEDURE REASON: Ankle pain, initial exam * * * * Physician Interpretation * * * * EXAM: XR ANKLE 3V AP/LAT/OBL RT, XR FOOT 3V AP/LAT/OBL RT COMPARISON: No relevant prior available PATIENT HISTORY: Ankle pain, initial exam FINDINGS: Right ankle: AP, oblique, and lateral views of the right ankle were obtained. The regional soft tissues are unremarkable. There are no fractures. The alignment is normal. Right foot: Dorsal plantar, oblique, and lateral views of the right foot were obtained. The regional soft tissues are unremarkable. There are no fractures. The alignment is normal. IMPRESSION: 1. Right ankle: Negative for fracture or malalignment. 2. Right foot: Negative for fracture or malalignment. Collar Trimmer: [email or web address] Transcribe Date/Time: Jul 23 2020 11:47P Dictated by : JULIUS PENNY MD This examination was interpreted and the report reviewed and electronically signed by: JULIUS PENNY MD on Jul 23 2020 11:49PM EST [id number] N [facility] XR FOOT 3V AP/LAT/OBL RTon 0 07-24-2020 XR FOOT 3V AP/LAT/OBL RT * * *Final Report* * * DATE OF EXAM: Jul 23 2020 11:24PM MDX 5337 - XR FOOT 3V AP/LAT/OBL RT / PROCEDURE REASON: Foot trauma, Josephine neg, initial exam * * * * Physician Interpretation * * * * EXAM: XR ANKLE 3V AP/LAT/OBL RT, XR FOOT 3V AP/LAT/OBL RT COMPARISON: No relevant prior available PATIENT HISTORY: Ankle pain, initial exam FINDINGS: Right ankle: AP, oblique, and lateral views of the right ankle were obtained. The regional soft tissues are unremarkable. There are no fractures. The alignment is normal. Right foot: Dorsal plantar, oblique, and lateral views of the right foot were obtained. The regional soft tissues are unremarkable. There are no fractures. The alignment is normal. IMPRESSION: 1. Right ankle: Negative for fracture or malalignment. 2. Right foot: Negative for fracture or malalignment. Collar Trimmer: [email or web address] Transcribe Date/Time: Jul 23 2020 11:47P Dictated by : JULIUS PENNY MD This examination was interpreted and the report reviewed and electronically signed by: JULIUS PENNY MD on Jul 23 2020 11:49PM EST [id number] N [facility] Vital Signs Date Time Vital Sign Value Performing Clinician Facility 01-07-2025 16:16-0500 Body mass index (BMI) [Ratio] 25.5 kg/m2 Cinda Suppan SOCIAL ORGANIZATION PROFESSOR.PROCESS SAFETY ENGINEERING TECHNOLOGIST Work Phone: [facility] 01-07-2025 16:16-0500 Body temperature 97.81 [degF] Cinda Suppan SOCIAL ORGANIZATION PROFESSOR.PROCESS SAFETY ENGINEERING TECHNOLOGIST Work Phone: [facility] 01-07-2025 16:16-0500 Body weight 85.28 kg Cinda Suppan SOCIAL ORGANIZATION PROFESSOR.PROCESS SAFETY ENGINEERING TECHNOLOGIST Work Phone: [facility] 01-07-2025 16:16-0500 Diastolic blood pressure 78 mm[Hg] Cinda Suppan SOCIAL ORGANIZATION PROFESSOR.PROCESS SAFETY ENGINEERING TECHNOLOGIST Work Phone: [facility] 01-07-2025 16:16-0500 Heart rate 68 /min Cinda Suppan SOCIAL ORGANIZATION PROFESSOR.PROCESS SAFETY ENGINEERING TECHNOLOGIST Work Phone: [facility] 01-07-2025 16:16-0500 SaO2% (BldA) [Mass fraction] 100 % Cinda Suppan SOCIAL ORGANIZATION PROFESSOR.PROCESS SAFETY ENGINEERING TECHNOLOGIST Work Phone: [facility] 01-07-2025 16:16-0500 Systolic blood pressure 140 mm[Hg] Cinda Suppan SOCIAL ORGANIZATION PROFESSOR.PROCESS SAFETY ENGINEERING TECHNOLOGIST Work Phone: [facility] 06-11-2024 15:56-0400 Diastolic blood pressure 80 mm[Hg] Cinda Suppan SOCIAL ORGANIZATION PROFESSOR.PROCESS SAFETY ENGINEERING TECHNOLOGIST Work Phone: [facility] 06-11-2024 15:56-0400 Systolic blood pressure 136 mm[Hg] Cinda Suppan SOCIAL ORGANIZATION PROFESSOR.PROCESS SAFETY ENGINEERING TECHNOLOGIST Work Phone: [facility] 06-11-2024 15:43-0400 Body height 182.9 cm Cinda Suppan SOCIAL ORGANIZATION PROFESSOR.PROCESS SAFETY ENGINEERING TECHNOLOGIST Work Phone: [facility] 06-11-2024 15:43-0400 Body mass index (BMI) [Ratio] 23.46 kg/m2 Cinda Suppan SOCIAL ORGANIZATION PROFESSOR.PROCESS SAFETY ENGINEERING TECHNOLOGIST Work Phone: [facility] 06-11-2024 15:43-0400 Body weight 78.47 kg Cinda Suppan SOCIAL ORGANIZATION PROFESSOR.PROCESS SAFETY ENGINEERING TECHNOLOGIST Work Phone: [facility] 06-11-2024 15:43-0400 Heart rate 68 /min Cinda Suppan SOCIAL ORGANIZATION PROFESSOR.PROCESS SAFETY ENGINEERING TECHNOLOGIST Work Phone: [facility] 06-11-2024 15:43-0400 SaO2% (BldA) [Mass fraction] 98 % Cinda Suppan SOCIAL ORGANIZATION PROFESSOR.PROCESS SAFETY ENGINEERING TECHNOLOGIST Work Phone: [facility] 02-28-2024 16:17-0400 Body mass index (BMI) [Ratio] 22.51 kg/m2 Cinda Suppan SOCIAL ORGANIZATION PROFESSOR.RAW SAMPLER Work Phone: [facility] 02-28-2024 16:17-0400 Body weight 75.3 kg Cinda Suppan SOCIAL ORGANIZATION PROFESSOR.RAW SAMPLER Work Phone: [facility] 02-28-2024 16:17-0400 Diastolic blood pressure 76 mm[Hg] Cinda Suppan SOCIAL ORGANIZATION PROFESSOR.RAW SAMPLER Work Phone: [facility] 02-28-2024 16:17-0400 Heart rate 58 /min Cinda Suppan SOCIAL ORGANIZATION PROFESSOR.RAW SAMPLER Work Phone: [facility] 02-28-2024 16:17-0400 Respiratory rate 16 /min Cinda Suppan SOCIAL ORGANIZATION PROFESSOR.RAW SAMPLER Work Phone: [facility] 02-28-2024 16:17-0400 SaO2% (BldA) [Mass fraction] 98 % Cinda Suppan SOCIAL ORGANIZATION PROFESSOR.RAW SAMPLER Work Phone: [facility] 02-28-2024 16:17-0400 Systolic blood pressure 124 mm[Hg] Cinda Suppan SOCIAL ORGANIZATION PROFESSOR.RAW SAMPLER Work Phone: [facility] 01-28-2024 07:31-0400 Body temperature 97.39 [degF] Mara Felder SOCIAL ORGANIZATION PROFESSOR.PROCESS SAFETY ENGINEERING TECHNOLOGIST Work Phone: [facility] 01-28-2024 07:31-0400 Body weight 74.7 kg Mara Felder SOCIAL ORGANIZATION PROFESSOR.PROCESS SAFETY ENGINEERING TECHNOLOGIST Work Phone: [facility] 01-28-2024 07:31-0400 Diastolic blood pressure 80 mm[Hg] Mara Praisler-Wood SOCIAL ORGANIZATION PROFESSOR.[facility] Work Phone: [facility] 01-28-2024 07:31-0400 Heart rate 50 /min Mara Praisler-Wood SOCIAL ORGANIZATION PROFESSOR.[facility] Work Phone: [facility] 01-28-2024 07:31-0400 Respiratory rate 16 /min Mara Praisler-Wood SOCIAL ORGANIZATION PROFESSOR.[facility] Work Phone: [facility] 01-28-2024 07:31-0400 SaO2% (BldA) [Mass fraction] 98 % Mara Praisler-Wood SOCIAL ORGANIZATION PROFESSOR.[facility] Work Phone: [facility] 01-28-2024 07:31-0400 Systolic blood pressure 122 mm[Hg] Mara Praisler-Wood SOCIAL ORGANIZATION PROFESSOR.[facility] Work Phone: [facility] 11-11-2022 16:43-0500 Heart rate 68 /min [facility] Work Phone: 11-11-2022 16:43-0500 Respiratory rate 17 /min [facility] Work Phone: 11-11-2022 16:43-0500 SaO2% (BldA) [Mass fraction] 99 % [facility] Work Phone: 11-11-2022 15:29-0500 Body height 182.88 cm [facility] Work Phone: 11-11-2022 15:29-0500 Body mass index (BMI) [Ratio] 22.4 kg/m2 [facility] Work Phone: 11-11-2022 15:29-0500 Body temperature 98 [degF] [facility] Work Phone: 11-11-2022 15:29-0500 Body weight 74.84 kg [facility] Work Phone: 11-11-2022 15:29-0500 Diastolic blood pressure 70 mm[Hg] [facility] Work Phone: 11-11-2022 15:29-0500 Systolic blood pressure 134 mm[Hg] [facility] Work Phone: 05-22-2022 16:12-0400 Body height 182.9 cm Dereck Cano PA-C Work Phone: [facility] 05-22-2022 16:12-0400 Body temperature 99.39 [degF] Dereck Cano PA-C Work Phone: [facility] 05-22-2022 16:12-0400 Body weight 70.31 kg Dereck Cano PA-C Work Phone: [facility] 05-22-2022 16:12-0400 Diastolic blood pressure 86 mm[Hg] Dereck Cano PA-C Work Phone: [facility] 05-22-2022 16:12-0400 Heart rate 78 /min Dereck Cano PA-C Work Phone: [facility] 05-22-2022 16:12-0400 Respiratory rate 12 /min Dereck Cano PA-C Work Phone: [facility] 05-22-2022 16:12-0400 SaO2% (BldA) [Mass fraction] 100 % Dereck Cano PA-C Work Phone: [facility] 05-22-2022 16:12-0400 Systolic blood pressure 136 mm[Hg] Dereck Cano PA-C Work Phone: [facility] Encounters Encounter Date Encounter Type Care Provider Facility Start: 03-26-2025 End: 03-26-2025 Patient encounter procedure Linsey Vaughn PARTITION ASSEMBLY MACHINE OPERATOR-C -Radiology [facility] Work Phone: Start: 03-26-2025 End: 03-26-[address] Tammy Fowler MD Work Phone: [facility] Work Phone: Start: 03-26-2025 End: 03-26-2025 ambulatory Tammy Fowler Facility:[facility] Start: 01-07-2025 End: 01-07-2025 Office outpatient visit 15 minutes Cinda Caldera SOCIAL ORGANIZATION PROFESSOR.PROCESS SAFETY ENGINEERING TECHNOLOGIST Work Phone: [facility] Comment on above: Elevated blood press ure reading without diagnosis of hypertension (Primary Dx); Screening for depression; Encounter for screening examination for other mental health and behavioral disorders; ADHD (attention deficit hyperactivity disorder), predominantly hyperactive impulsive type Start: 01-07-2025 End: 01-07-2025 [facility] Start: 07-16-2024 End: 07-16-2024 Telephone encounter Cinda Caldera SOCIAL ORGANIZATION PROFESSOR.PROCESS SAFETY ENGINEERING TECHNOLOGIST Work Phone: [facility] [place] Comment on above: Rx updated, but not sent to pharmacy Start: 06-11-2024 End: 06-11-2024 Office outpatient visit 15 minutes Cinda Caldera SOCIAL ORGANIZATION PROFESSOR.PROCESS SAFETY ENGINEERING TECHNOLOGIST Work Phone: [facility] Comment on above: Anxiety with depress ion (Primary Dx); Irritability Start: 06-11-2024 End: 06-11-2024 ambulatory CINDA A SUPPAN Facility:[facility] Start: 03-09-2024 Telephone encounter Cinda Caldera SOCIAL ORGANIZATION PROFESSOR.RAW SAMPLER Work Phone: [facility] Comment on above: Results Start: 02-28-2024 End: 02-28-2024 Office outpatient visit 15 minutes Cinda Caldera SOCIAL ORGANIZATION PROFESSOR.RAW SAMPLER Work Phone: [facility] Comment on above: Irritability (Primar y Dx); Anxiety with depression Start: 01-28-2024 End: 01-28-2024 Patient encounter procedure Mara Felder SOCIAL ORGANIZATION PROFESSOR.PROCESS SAFETY ENGINEERING TECHNOLOGIST Work Phone: [facility] Comment on above: Sinobronchitis (Prim kayy Dx); Middle ear effusion, left Start: 11-11-2022 End: 11-11-2022 Emergency department patient visit [facility]Emergency Department Start: 07-31-2022 Telephone encounter Dereck law PA-C Work Phone: Urology Comment on above: Orders Start: 05-22-2022 End: 05-22-2022 Patient encounter procedure Dereck Cano PA-C Work Phone: Urology Comment on above: Vasectomy evaluation (Primary Dx) Procedures Date Procedure Procedure Detail Performing Clinician Start: 03-26-2025 X-ray of chest, LALITA watkins nd lateral views Dr. Tammy Fowler MD Work Phone: Start: 01-07-2025 Adult depression scr eening assessment Cinda Caldera SOCIAL ORGANIZATION PROFESSOR.PROCESS SAFETY ENGINEERING TECHNOLOGIST Work Phone: Start: 11-11-2022 Diagnostic radiograp hy of finger Start: 07-20-2019 Adult depression scr eening assessment Dereck Cano PA-C Work Phone: Plan of Treatment Date Care Activity Detail Author Start: 01-07-2026 Anxiety Screening Anxiety Screening [facility] Start: 01-07-2026 Depression Screening Depression Scre ening [facility] Start: 05-03-2025 Influenza vaccination Influenz a Vaccine (#1) [facility] Comment on above: Postponed from 07/05 (Declined at this time) Start: 02-18-2025 End: 02-18-2025 Patient encounter procedure 02/18/2025 3:00 PM EDT Office Visit [facility] [address], [place] [id number] Cinda Caldera, SOCIAL ORGANIZATION PROFESSOR.PROCESS SAFETY ENGINEERING TECHNOLOGIST [address] [place], [place] [id number] 6 week ADD medication follow up [facility] Comment on above: 6 week ADD medicatio n follow up Start: 07-05-2024 Covid-19 Vaccine ( season) Covid-19 Vaccine ( season) [facility] Start: 07-05-2024 Covid-19 Vaccine ( season) Covid-19 Vaccine ( season) [facility] Start: 07-05-2024 Influenza vaccination C [facility] Start: 02-28-2024 End: 05-29-2024 Cobalamin (Vitamin B12) [Mass/volume] in Serum or Plasma [facility] Comment on above: Expected: 02/28/2024 , Expires: 05/29/2024 Start: 02-28-2024 End: 05-29-2024 Comprehensive metabolic 2000 panel - Serum or Plasma [facility] Work Phone: Comment on above: Expected: 02/28/2024 , Expires: 05/29/2024 Start: 02-28-2024 End: 05-29-2024 LIPID PANEL, NONFASTING [facility] Comment on above: Expected: 02/28/2024 , Expires: 05/29/2024 Start: 02-28-2024 End: 05-29-2024 Magnesium [Mass/volume] in Serum or Plasma [facility] Comment on above: Expected: 02/28/2024 , Expires: 05/29/2024 Start: 02-28-2024 End: 05-29-2024 TESTOSTERONE, FREE AND TOTAL [facility] Comment on above: Expected: 02/28/2024 , Expires: 05/29/2024 Start: 02-28-2024 End: 05-29-2024 Thyrotropin [Units/volume] in Serum or Plasma [facility] Comment on above: Expected: 02/28/2024 , Expires: 05/29/2024 Start: 11-04-2023 Behavioral Health Screening Behavioral Health Screening [facility] Start: 11-04-2023 Depression Assessment Depression Ass [facility] Start: 07-05-2023 Covid-19 Vaccine ( season) Covid-19 Vaccine () [facility] Start: 07-05-2023 Influenza vaccination Influenz a Vaccine (#1) [facility] Start: 07-05-2022 Influenza vaccination INFLUENZA (#1) [facility] Start: 11-04-2021 [facility]PRESSION [facility]MENT [facility] Start: 07-20-2020 Adult depression screening assessment DEPRESSION SCREENING [facility] Start: 05-23-2017 Urine microalbumin profile [facility] Start: 2011 Anxiety Screening Anxiety Screening [facility] Start: 2011 Depression Screening Depression Scre ening [facility] Start: 2011 HEPATITIS C SCREENING HEPATITIS C [facility] Start: 2011 Hepatitis C screening Hepatitis C [facility] Start: 2011 HIV SCREENING HIV SCREENING [facility] Start: 2011 HIV screening HIV Screening [facility] Start: 06-17-1994 COVID-19 VACCINE (#1) COVID-19 VACCI NE (#1) [facility] Patient Education ED Puncture Wo und (General) [facility] Work Phone: Patient referral [facility] Work Phone: Vasectomy uni/bi spx w/postop semen exams VASECTOMY Procedures Routine Vasectomy evaluation Ordered: 05/22/2022 [facility] Work Phone: Comment on above: Ordered: 05/22/2022 [facility] Immunizations Immunization Date Immunization Notes Care Provider Angelica isabel 05-27-2008 varicella virus vaccine Dereck Cano PA-C Work Phone: [facility] Work Phone: 05-23-2007 Meningococcal, MCV4, unspecified conjugate formulation(groups A, C, Y and W-135) Dereck Cano PA-C Work Phone: [facility] Work Phone: 05-23-2007 tetanus toxoid, reduced diphtheria toxoid, and acellular pertussis vaccine, adsorbed Dereck Cano PA-C Work Phone: [facility] Work Phone: 09-16-2003 influenza virus vaccine, unspecified formulation Dereck Cano PA-C Work Phone: [facility] 09-28-2002 influenza virus vaccine, unspecified formulation Dereck Cano PA-C Work Phone: [facility] 03-15-1999 diphtheria, tetanus toxoids and acellular pertussis vaccine Dereck Cano PA-C Work Phone: [facility] 03-15-1999 measles, mumps and rubella virus vaccine Dereck Cano PA-C Work Phone: [facility] 03-15-1999 poliovirus vaccine, inactivated Dereck Cano PA-C Work Phone: [facility] 10-18-1997 varicella virus vaccine Dereck Cano PA-C Work Phone: [facility] 01-23-1995 hepatitis B vaccine, pediatric or pediatric/adolescent dosage Dereck Cano PA-C Work Phone: [facility] 12-26-1994 diphtheria, tetanus toxoids and acellular pertussis vaccine Dereck Cano PA-C Work Phone: [facility] 12-26-1994 haemophilus influenz ae type b vaccine, conjugate unspecified formulation Cinda Suppan SOCIAL ORGANIZATION PROFESSOR.RAW SAMPLER Work Phone: [facility] 12-26-1994 hepatitis B vaccine, pediatric or pediatric/adolescent dosage Cinda Suppan SOCIAL ORGANIZATION PROFESSOR.RAW SAMPLER Work Phone: [facility] 12-26-1994 measles, mumps and rubella virus vaccine Dereck Cano PA-C Work Phone: [facility] 06-06-1994 diphtheria, tetanus toxoids and acellular pertussis vaccine Dereck Cano PA-C Work Phone: [facility] 06-06-1994 haemophilus influenz ae type b vaccine, conjugate unspecified formulation Cinda Suppan SOCIAL ORGANIZATION PROFESSOR.RAW SAMPLER Work Phone: [facility] 06-06-1994 poliovirus vaccine, inactivated Dereck Cano PA-C Work Phone: [facility] 04-12-1994 diphtheria, tetanus toxoids and acellular pertussis vaccine Dereck Cano PA-C Work Phone: [facility] 04-12-1994 haemophilus influenz ae type b vaccine, conjugate unspecified formulation Cinda Suppan SOCIAL ORGANIZATION PROFESSOR.RAW SAMPLER Work Phone: [facility] 04-12-1994 poliovirus vaccine, inactivated Dereck Cano PA-C Work Phone: [facility] 02-15-1994 diphtheria, tetanus toxoids and acellular pertussis vaccine Dereck Cano PA-C Work Phone: [facility] 02-15-1994 haemophilus influenz ae type b vaccine, conjugate unspecified formulation Cinda Suppan SOCIAL ORGANIZATION PROFESSOR.RAW SAMPLER Work Phone: [facility] 02-15-1994 poliovirus vaccine, inactivated Dereck Cano PA-C Work Phone: [facility] 01-17-1994 hepatitis B vaccine, pediatric or pediatric/adolescent dosage Dereck Cano PA-C Work Phone: [facility] 1993 hepatitis B vaccine, pediatric or pediatric/adolescent dosage Dereck Cano PA-C Work Phone: [facility] Payers Date Payer Category Payer Self-pay [id number] 2021 Private Health Insurance JENNILALITHA GALLEGOS JANINE [id number] 2021-Present [phone] [address] [place] [address] Open Access [id number] 2021 Private Health Insurance [id number] 2021 Private Health Insurance [id number] 1994 Unknown FERMIN [id number] Unknown [id number] Social History Date Type Detail Facility Start: 03-14-2012 End: 11-11-2022 Tobacco smoking status NHIS Never smoked tobacco [facility] Start: 05-22-2022 End: 01-07-2025 Alcohol intake Current drinker of alcohol (finding) [facility] Start: 04-07-2018 History SDOH Alcohol Comment 1-2 beers per month [facility] Start: 1995 Sex Assigned At Not on file [facility] Start: 05-12-2022 End: 05-22-2022 Exposure to SARS-CoV-2 (event) Not sure [facility] Start: 03-14-2012 End: 01-28-2024 Tobacco use and exposure Smokeless tobacco non-user [facility] Work Phone: Start: 11-11-2022 Tobacco smoking stat us NHIS Unknown if ever smoked [facility] Work Phone: Start: 1995 Sex Assigned At Male [facility] Start: 01-28-2024 End: 02-28-2024 History of Social function [facility] Start: 01-28-2024 End: 02-28-2024 Tobacco use panel [facility] Adult Depression Screening Assessment 0 [facility] Clinical Notes 09-11-2010 to 03-26-2025 Patient InstructionsSuCinda oliveira APRN.PROCESS SAFETY ENGINEERING TECHNOLOGIST - 01/07/2025 4:21 PM ESTTelephone Encounter - Ej Faria MA - 07/16/2024 4:32 PM EDTTelephone Encounter - Lori Wilkes MA - 07/16/2024 3:08 PM EDT Note Date & Type Note Facility 03-26-2025 Note HNO ID: [id number] Author: LINSEY VAUGHN APRN.PROCESS SAFETY ENGINEERING TECHNOLOGIST Service: ? Author Type: Nurse Practitioner Type: Progress Notes Filed: 03/26/2025 09:23 Note Text: [facility] Subjective Denton Jolley is a 29 year old male. Patient presents with: Cough: Head and chest congestion x3 weeks HPI Dyspnea: - Onset this morning while driving to work. - Occurs at rest, worsens with exertion such as climbing stairs. - Denies history of asthma. - Denies smoking. Sinus Congestion: - Bilateral facial congestion x3 weeks. - Associated with significant pressure causing pounding sensation in upper teeth. - Denies odynophagia. Review of Systems Ears/Nose/Mouth/Throat: (+) congestion, (+) tooth pain, (+) sinus pressure, (-) sore throat Respiratory: (+) shortness of breath Objective BP 133/82 Pulse (!) 54 Temp 36.3 ?C (97.4 ?F) Resp 18 Wt 83.8 kg (184 lb 11.9 oz) SpO2 100% BMI 25.06 kg/m? Physical Exam General: No acute distress. HEENT: Oropharynx without erythema. CV: Normal heart sounds. Resp: Lungs clear to auscultation. {1. Acute cough (R05.1) - Shortness of breath at rest and with exertion; lungs clear on auscultation, heart sounds normal. - Ordered chest X-ray to rule out pneumonia; results negative. 2. Rhinosinusitis (J32.9) - Congestion for 3 weeks with pressure in cheeks and forehead, associated with dental pain. - Initiated doxycycline BID for 7 days. - Advised to follow up with primary care if symptoms worsen or do not improve. and Recording using [employer] software for draft documentation of the visit was discussed with the patient/authorized inventory representative; all questions welcomed and answered. Patient/authorized inventory representative agreed to proceed MDM Procedures [facility] 03-26-2025 Radiology Diagnostic study note [facility] Imaging Services [address] [place] [address] Chest PA and Lateral MR#: [id number] Acct: [id number] Name: DENTON JOLLEY Rep #: [id number] : 1995 M 29 From: Francisco Osborn MD PCP: Dr. Tammy Fowler MD Status: REG C Study:Chest PA and Lateral Date of Exam: 03/26/25 Exam# [id number] Ordering Dr: Do zeynep Vaughn PROCEDURE: CHEST PA AND LATERAL 03/26/2025 REASON FOR EXAM: COUGH TECHNIQUE: Frontal and lateral views of the chest. COMPARISON: None FINDINGS: Hardware: None Heart: The heart size is normal. Mediastinum: The mediastinal contour is unremarkable. Lungs: The lungs are clear. Bones: The bones are unremarkable. RAD/Chest PA and Lateral IMPRESSION: NEGATIVE CHEST [facility]: SUSU Vaughn; Dr. Tammy Fowler MD ~ Collar Trimmer: Signed [facility] 01-07-2025 Instructions Cinda Caldera APRN.PROCESS SAFETY ENGINEERING TECHNOLOGIST - 01/07/2025 4:50 PM EST 1) Strattera 40 mg daily 2) DME- BP cuff sent to [facility] store 3) Send me 3 BP readings in 1 or 2 weeks documented in this encounter [facility] 01-07-2025 Note HNO ID: [id number] Author: CINDA CALDERA APRN.CNP Service: ? Author Type: Nurse Practitioner Type: Progress Notes Filed: 01/07/2025 16:52 Note Text: This is a 29 year old male who presents today with: Patient presents with: ADD/ADHD HISTORY OF PRESENT ILLNESS: Denton Jolley is a 29 year old male. Patient presents with: ADD/ADHD [place] like fluoxetine just numbed him out. Behavior was flat. Didn't help his racing mind Hyper- focus- if he can't complete that day, he can't cope Very clean- maybe OCD, messing with relationship Forgetful Edgy Fidgets Can;t sit still, mind always somewhere else- looking for next thing Easily distracted, no MVA Impulsive buying Interrupts conversation Impatient Mood swings Quick temper Teachers told him that he didn't pay attention Impulsive Worried about heart problems Dad 66- CABG Mom 56- valvular heart disease, CHF Gets chest pain- not related to exertion PAST MEDICAL HISTORY: PAST MEDICAL HISTORY Diagnosis Date Atopic eczema 2020 Depression PMH - PAST MEDICAL HISTORY OF 06/27/2001 normal color vision PAST SURGICAL HISTORY Procedure Laterality Date PAST SURGICAL HISTORY OF right hand TONSILLECTOMY PRIMARY/SECONDARY ALLERGIES Patient has no known allergies. MEDICATIONS Current Outpatient Medications Medication Sig FLUoxetine (PROZAC) 40 mg capsule Take 1 capsule by mouth once daily. DUPIXENT PEN 300 mg/2 mL pen Inject 300 mg subcutaneously every 2 weeks. (Patient taking differently: Inject 300 mg subcutaneously. Pt taking monthly or when having a flare up) multivitamin tablet Take 1 tablet by mouth once daily. No current facility-administered medications for this visit. FAMILY HISTORY Problem Relation Age of Onset other (murmur) Mother Social History Tobacco Use Smoking status: Never Smokeless tobacco: Never Vaping Use Vaping status: Never Used Substance Use Topics Alcohol use: Yes Comment: 1-2 beers per month Drug use: Not Currently EXAM: BP 140/78 Pulse 68 Temp 36.6 ?C (97.8 ?F) (Right Tympanic) Wt 85.3 kg (188 lb) SpO2 100% BMI 25.50 kg/m? PHYSICAL EXAM: Physical Exam Vitals reviewed. Constitutional: Appearance: Normal appearance. HENT: Head: Normocephalic. Cardiovascular: Rate and Rhythm: Normal rate and regular rhythm. Pulses: Normal pulses. Heart sounds: Normal heart sounds. Pulmonary: Effort: Pulmonary effort is normal. Breath sounds: Normal breath sounds. Abdominal: General: Bowel sounds are normal. Palpations: Abdomen is soft. Tenderness: There is no abdominal tenderness. There is no guarding or rebound. Musculoskeletal: General: Normal range of motion. Comments: Moves all ext. And walks w/o assistive device Skin: General: Skin is warm and dry. Neurological: Mental Status: He is alert and oriented to person, place, and time. LABS: ASSESSMENT/PLAN: 1. Elevated blood pressure reading without diagnosis of hypertension - ICD9: 796.2, ICD10: R03.0 (primary diagnosis) - Encouraged dietary sodium restriction/DASH diet - Recommended regular aerobic exercise. - Recommend home blood pressure monitoring, to bring results in on next visit - Goal of BP <130/80 - DME SUPPLY OR ACCESSORY, NOS send in 3 BP readings 2. Screening for depression - ICD9: V79.0, ICD10: Z13.31 Stable - DEPRESSION SCREENING 3. Encounter for screening examination for other mental health and behavioral disorders - ICD9: V79.8, ICD10: Z13.39 Stable - ANXIETY SCREENING 4. ADHD (attention deficit hyperactivity disorder), predominantly hyperactive impulsive type - ICD9: 314.01, ICD10: F90.1 Wanting to try ADHD medication - ATOMOXETINE 40 MG CAPSULE daily Discussed treatment plan and patient voices understanding. Patient's questions answered appropriately. Medications and potential side effects were discussed and patient voices understanding. Return to the office as scheduled or as needed for worsening/no improvement. Cinda Caldera, SOCIAL ORGANIZATION PROFESSOR.[facility] 01-07-2025 History of Presen t illness Narrative This is a 29 year old male who presents today with: Patient presents with: ADD/ADHD HISTORY OF PRESENT ILLNESS: Denton Jolley is a 29 year old male. Patient presents with: ADD/ADHD [place] like fluoxetine just numbed him out. Behavior was flat. Didn't help his racing mind Hyper- focus- if he can't complete that day, he can't cope Very clean- maybe OCD, messing with relationship Forgetful Edgy Fidgets Can;t sit still, mind always somewhere else- looking for next thing Easily distracted, no MVA Impulsive buying Interrupts conversation Impatient Mood swings Quick temper Teachers told him that he didn't pay attention Impulsive Worried about heart problems Dad 66- CABG Mom 56- valvular heart disease, CHF Gets chest pain- not related to exertion PAST MEDICAL HISTORY: PAST MEDICAL HISTORY Diagnosis Date Atopic eczema 2020 Depression PMH - PAST MEDICAL HISTORY OF 06/27/2001 normal color vision PAST SURGICAL HISTORY Procedure Laterality Date PAST SURGICAL HISTORY OF right hand TONSILLECTOMY PRIMARY/SECONDARY <AGE 10 2001 ALLERGIES Patient has no known allergies. MEDICATIONS Current Outpatient Medications Medication Sig FLUoxetine (PROZAC) 40 mg capsule Take 1 capsule by mouth once daily. DUPIXENT PEN 300 mg/2 mL pen Inject 300 mg subcutaneously every 2 weeks. (Patient taking differently: Inject 300 mg subcutaneously. Pt taking monthly or when having a flare up) multivitamin tablet Take 1 tablet by mouth once daily. No current facility-administered medications for this visit. FAMILY HISTORY Problem Relation Age of Onset other (murmur) Mother Social History Tobacco Use Smoking status: Never Smokeless tobacco: Never Vaping Use Vaping status: Never Used Substance Use Topics Alcohol use: Yes Comment: 1-2 beers per month Drug use: Not Currently EXAM: BP 140/78 Pulse 68 Temp 36.6 C (97.8 F) (Right Tympanic) Wt 85.3 kg (188 lb) SpO2 100% BMI 25.50 kg/m PHYSICAL EXAM: Physical Exam Vitals reviewed. Constitutional: Appearance: Normal appearance. HENT: Head: Normocephalic. Cardiovascular: Rate and Rhythm: Normal rate and regular rhythm. Pulses: Normal pulses. Heart sounds: Normal heart sounds. Pulmonary: Effort: Pulmonary effort is normal. Breath sounds: Normal breath sounds. Abdominal: General: Bowel sounds are normal. Palpations: Abdomen is soft. Tenderness: There is no abdominal tenderness. There is no guarding or rebound. Musculoskeletal: General: Normal range of motion. Comments: Moves all ext. And walks w/o assistive device Skin: General: Skin is warm and dry. Neurological: Mental Status: He is alert and oriented to person, place, and time. LABS: ASSESSMENT/PLAN: 1. Elevated blood pressure reading without diagnosis of hypertension - ICD9: 796.2, ICD10: R03.0 (primary diagnosis) - Encouraged dietary sodium restriction/DASH diet - Recommended regular aerobic exercise. - Recommend home blood pressure monitoring, to bring results in on next visit - Goal of BP <130/80 - DME SUPPLY OR ACCESSORY, NOS send in 3 BP readings 2. Screening for depression - ICD9: V79.0, ICD10: Z13.31 Stable - DEPRESSION SCREENING 3. Encounter for screening examination for other mental health and behavioral disorders - ICD9: V79.8, ICD10: Z13.39 Stable - ANXIETY SCREENING 4. ADHD (attention deficit hyperactivity disorder), predominantly hyperactive impulsive type - ICD9: 314.01, ICD10: F90.1 Wanting to try ADHD medication - ATOMOXETINE 40 MG CAPSULE daily Discussed treatment plan and patient voices understanding. Patient's questions answered appropriately. Medications and potential side effects were discussed and patient voices understanding. Return to the office as scheduled or as needed for worsening/no improvement. Cinda Caldera APRN.BISHOP documented in this encounter [facility] 07-16-2024 Telephone encounter Note Called and left generic message on VM that Rx has been sent to Pharmacy as requested. If questions to contact office and speak with Triage Nurse. Ej Faria MA [facility] 07-16-2024 Miscellaneous Notes Called and left generic message on VM that Rx has been sent to Pharmacy as requested. If questions to contact office and speak with Triage Nurse. Ej Faria MA Sorry sent Patient said he was told his rx fluoxetine 40 mg [facility]. It was updated in chart, but not sent. He would like a call back at [phone] when sent. documented in this encounter [facility] 07-16-2024 Telephone encounter Note Sorry sent [facility] 07-16-2024 Telephone encounter Note Patient said he was told his rx fluoxetine [address] [facility]. It was updated in chart, but not sent. He would like a call back at [phone] when sent. [facility] 07-16-2024 Telephone encounter Note Spoke with pt and advised needed a one moth medication follow up. He will call back when he knows his 's schedule. Lori Wilkes MA [facility] 07-16-2024 Miscellaneous Notes Spoke with pt and advised needed a one moth medication follow up. He will call back when he knows his 's schedule. Lori Wilkes MA Rx sent. Please schedule follow up with one of us Patient is wanting to increase to Fluoxetine to 40mg, feels he has leveled out, not really effects anymore. Asking for new RX to go to [place]. Denton took his last pill this AM, asking if RX could go today, Patient will check with pharmacy later. Vanessa Soria LPN documented in this encounter [facility] 07-16-2024 Telephone encounter Note Rx sent. Please schedule follow up with one of us [facility] 07-16-2024 Telephone encounter Note Patient is wanting to increase to Fluoxetine to 40mg, feels he has leveled out, not really effects anymore. Asking for new RX to go to [facility]. Denton took his last pill this AM, asking if RX could go today, Patient will check with pharmacy later. Vanessa Soria LPN [facility] 06-11-2024 Instructions Cinda Caldera APRN.CNP - 06/11/2024 3:57 PM EDT 1) Increase fluoxetine to 20 mg daily 2) Follow up in 3 months documented in this encounter [facility] 06-11-2024 Note HNO ID: [id number] Author: CINDA CALDERA APRN.CNP Service: ? Author Type: Clinical Nurse Specialist Type: Progress Notes Filed: 06/11/2024 15:57 Note Text: This is a 28 year old male who presents today with: Patient presents with: Follow Up HISTORY OF PRESENT ILLNESS: Denton Jolley is a 28 year old male. Patient presents with: Follow Up Hyper- focus- some improvement Very clean- maybe OCD, messing with relationship Forgetful- no change Edgy- some improvement Fidgets- still noting Can;t sit still, mind always somewhere else- looking for next thing Easily distracted, no MVA Impulsive buying Interrupts conversation Impatient- some better Mood swings- some improvement Quick temper- some improvement Still sleeping good Exercising- lifting weights PAST MEDICAL HISTORY: PAST MEDICAL HISTORY No date: Atopic eczema Comment: 2020 No date: Depression 06/27/2001: PMH - PAST MEDICAL HISTORY OF Comment: normal color vision PAST SURGICAL HISTORY No date: PAST SURGICAL HISTORY OF Comment: right hand 2002: TONSILLECTOMY PRIMARY/SECONDARY ALLERGIES Patient has no known allergies. MEDICATIONS Current Outpatient Medications Medication Sig FLUoxetine (PROZAC) 10 mg capsule Take 1 capsule by mouth once daily. DUPIXENT PEN 300 mg/2 mL pen Inject 300 mg subcutaneously every 2 weeks. multivitamin tablet Take 1 tablet by mouth once daily. No current facility-administered medications for this visit. FAMILY HISTORY Problem Relation Age of Onset other (murmur) Mother Social History Tobacco Use Smoking status: Never Smokeless tobacco: Never Vaping Use Vaping Use: Never used Substance Use Topics Alcohol use: Yes Comment: 1-2 beers per month Drug use: Not Currently EXAM: BP 140/80 Pulse 68 Ht 182.9 cm (6') Wt 78.5 kg (173 lb) SpO2 98% BMI 23.46 kg/m? PHYSICAL EXAM: General Appearance: Well appearing, alert, in no acute distress, well-hydrated, well nourished.. Mood: good eye contact, pleasant, cooperative, oriented X 3, bright affect. Thoughts are organized, clear, direct, appropriate LABS: ASSESSMENT/PLAN: 1. Anxiety with depression - ICD9: 300.4, ICD10: F41.8 (primary diagnosis) - Increase fluoxetine to 20 mg daily 2. Irritability - ICD9: 799.22, ICD10: R45.4 Improvement - Increase fluoxetine to 20 mg daily Discussed treatment plan and patient voices understanding. Patient's questions answered appropriately. Medications and potential side effects were discussed and patient voices understanding. Return to the office as scheduled or as needed for worsening/no improvement. Cinda Caldera, SHAQUILLE.[facility] 06-11-2024 History of Presen t illness Narrative This is a 28 year old male who presents today with: Patient presents with: Follow Up HISTORY OF PRESENT ILLNESS: Denton Jolley is a 28 year old male. Patient presents with: Follow Up Hyper- focus- some improvement Very clean- maybe OCD, messing with relationship Forgetful- no change Edgy- some improvement Fidgets- still noting Can;t sit still, mind always somewhere else- looking for next thing Easily distracted, no MVA Impulsive buying Interrupts conversation Impatient- some better Mood swings- some improvement Quick temper- some improvement Still sleeping good Exercising- lifting weights PAST MEDICAL HISTORY: PAST MEDICAL HISTORY No date: Atopic eczema Comment: 2020 No date: Depression 06/27/2001: PMH - PAST MEDICAL HISTORY OF Comment: normal color vision PAST SURGICAL HISTORY No date: PAST SURGICAL HISTORY OF Comment: right hand 2001: TONSILLECTOMY PRIMARY/SECONDARY <AGE 10 ALLERGIES Patient has no known allergies. MEDICATIONS Current Outpatient Medications Medication Sig FLUoxetine (PROZAC) 10 mg capsule Take 1 capsule by mouth once daily. DUPIXENT PEN 300 mg/2 mL pen Inject 300 mg subcutaneously every 2 weeks. multivitamin tablet Take 1 tablet by mouth once daily. No current facility-administered medications for this visit. FAMILY HISTORY Problem Relation Age of Onset other (murmur) Mother Social History Tobacco Use Smoking status: Never Smokeless tobacco: Never Vaping Use Vaping Use: Never used Substance Use Topics Alcohol use: Yes Comment: 1-2 beers per month Drug use: Not Currently EXAM: BP 140/80 Pulse 68 Ht 182.9 cm (6') Wt 78.5 kg (173 lb) SpO2 98% BMI 23.46 kg/m PHYSICAL EXAM: General Appearance: Well appearing, alert, in no acute distress, well-hydrated, well nourished.. Mood: good eye contact, pleasant, cooperative, oriented X 3, bright affect. Thoughts are organized, clear, direct, appropriate LABS: ASSESSMENT/PLAN: 1. Anxiety with depression - ICD9: 300.4, ICD10: F41.8 (primary diagnosis) - Increase fluoxetine to 20 mg daily 2. Irritability - ICD9: 799.22, ICD10: R45.4 Improvement - Increase fluoxetine to 20 mg daily Discussed treatment plan and patient voices understanding. Patient's questions answered appropriately. Medications and potential side effects were discussed and patient voices understanding. Return to the office as scheduled or as needed for worsening/no improvement. Cinda Caldera APRN.CNP documented in this encounter [facility] 03-11-2024 Telephone encounter Note Patient did review this lab on Mychart. [facility] 03-11-2024 Miscellaneous Notes Patient did review this lab on Mychart. TC no answer. Left VM to return call. EVELIO Jimenes Please let patient know that his testosterone levels came back and they are completely normal. No further labs needed. He is in high normal range. All other labs were also normal. documented in this encounter [facility] 03-09-2024 Telephone encounter Note TC no answer. Left VM to return call. EVELIO Jimenes [facility] 03-09-2024 Telephone encounter Note Please let patient know that his testosterone levels came back and they are completely normal. No further labs needed. He is in high normal range. All other labs were also normal. [facility] 02-28-2024 Instructions Cinda Caldera APRN.CNS - 02/28/2024 4:52 PM EDT 1) Get labs 2) Start prozac 10 mg daily 3) Keep notes on irritability 4) follow up in 2 months documented in this encounter [facility] 02-28-2024 History of Presen t illness Narrative This is a 28 year old male who presents today with: Patient presents with: ADD/ADHD HISTORY OF PRESENT ILLNESS: Denton Jolley is a 28 year old male. Patient presents with: ADD/ADHD Hyper- focus- if he can't complete that day, he can't cope Very clean- maybe OCD, messing with relationship Forgetful Edgy Fidgets Can;t sit still, mind always somewhere else- looking for next thing Easily distracted, no MVA Impulsive buying Interrupts conversation Impatient Mood swings Quick temper Works at [employer] for 6 years, worked previous job for 5 years Has periods that he doesn't want to get out of bed Sleeps 7-8 PAST MEDICAL HISTORY: PAST MEDICAL HISTORY Diagnosis Date Atopic eczema 2020 Depression PMH - PAST MEDICAL HISTORY OF 06/27/2001 normal color vision PAST SURGICAL HISTORY Procedure Laterality Date PAST SURGICAL HISTORY OF right hand TONSILLECTOMY PRIMARY/SECONDARY <AGE 10 2001 ALLERGIES Patient has no known allergies. MEDICATIONS Current Outpatient Medications Medication Sig DUPIXENT PEN 300 mg/2 mL pen Inject 300 mg subcutaneously every 2 weeks. multivitamin tablet Take 1 tablet by mouth once daily. No current facility-administered medications for this visit. FAMILY HISTORY Problem Relation Age of Onset other (murmur) Mother Social History Tobacco Use Smoking status: Never Smokeless tobacco: Never Vaping Use Vaping Use: Never used Substance Use Topics Alcohol use: Yes Comment: 1-2 beers per month Drug use: Not Currently EXAM: BP 124/76 Pulse (!) 58 Resp 16 Wt 75.3 kg (166 lb) SpO2 98% BMI 22.51 kg/m PHYSICAL EXAM: General Appearance: Well appearing, alert, in no acute distress, well-hydrated, well nourished.. Mood: good eye contact, pleasant, cooperative, oriented X 3, bright affect. Thoughts are organized, clear, direct, appropriate LABS: Obtain labs ASSESSMENT/PLAN: 1. Irritability - ICD9: 799.22, ICD10: R45.4 (primary diagnosis) Ongoing - FLUOXETINE 10 MG CAPSULE daily - COMPLETE BLOOD COUNT AND DIFFERENTIAL - COMPREHENSIVE METABOLIC PANEL - THYROID STIMULATING HORMONE - VITAMIN B12 - MAGNESIUM - TESTOSTERONE, FREE AND TOTAL - Keep record on behavior changes 2. Anxiety with depression - ICD9: 300.4, ICD10: F41.8 Bright affect but short tempered as stated - COMPLETE BLOOD COUNT AND DIFFERENTIAL - COMPREHENSIVE METABOLIC PANEL - THYROID STIMULATING HORMONE - VITAMIN B12 - MAGNESIUM - LIPID PANEL, NONFASTING Discussed treatment plan and patient voices understanding. Patient's questions answered appropriately. Medications and potential side effects were discussed and patient voices understanding. Return to the office as scheduled or as needed for worsening/no improvement. Cinda Caldera APRN.MANDA The patient indicates understanding of these issues and agrees with the plan. documented in this encounter [facility] 01-28-2024 History of Presen t illness Narrative Subjective Cough Associated symptoms include ear pain (right), headaches and sore throat. Pertinent negatives include no chills, no myalgias, no shortness of breath and no wheezing. Denton Jolley is a 28 year old male who presents with a week of cough, sore throat, headache, nasal congestion and drainage. Has had some nausea and pain in right ear. Denies fever or shortness of breath. Cough is productive. Has been taking dayquil and nyquil without improvement in symptoms. Review of Systems Constitutional: Negative for chills and fever. HENT: Positive for congestion, ear pain (right) and sore throat. Respiratory: Positive for cough and sputum production. Negative for shortness of breath and wheezing. Cardiovascular: Negative. Gastrointestinal: Positive for nausea. Negative for abdominal pain, diarrhea and vomiting. Musculoskeletal: Negative for myalgias. Neurological: Positive for headaches. BP 122/80 Pulse (!) 50 Temp 36.3 C (97.4 F) (Tympanic) Resp 16 Wt 74.7 kg (164 lb 10.9 oz) SpO2 98% BMI 22.34 kg/m PAST MEDICAL HISTORY Diagnosis Date Atopic eczema 2020 Depression PMH - PAST MEDICAL HISTORY OF 06/27/2001 normal color vision PAST SURGICAL HISTORY Procedure Laterality Date PAST SURGICAL HISTORY OF right hand TONSILLECTOMY PRIMARY/SECONDARY <AGE 10 2001 ALLERGIES Patient has no known allergies. MEDICATIONS DUPIXENT PEN 300 mg/2 mL pen Inject 300 mg subcutaneously every 2 weeks. multivitamin tablet Take 1 tablet by mouth once daily. doxycycline hyclate (VIBRAMYCIN) 100 mg capsule Take 1 capsule by mouth two times a day for 7 days. predniSONE (DELTASONE) 20 mg tablet Take 2 tablets by mouth once daily for 4 days. Take daily with food. FAMILY HISTORY Problem Relation Age of Onset other (murmur) Mother Social History Tobacco Use Smoking status: Never Smokeless tobacco: Never Vaping Use Vaping Use: Never used Substance Use Topics Alcohol use: Yes Comment: 1-2 beers per month Drug use: Not Currently Objective Physical Exam Vitals and nursing note reviewed. Constitutional: General: He is not in acute distress. Appearance: Normal appearance. He is not ill-appearing. HENT: Right Ear: Tympanic membrane, ear canal and external ear normal. Left Ear: Ear canal and external ear normal. A middle ear effusion is present. Nose: Nose normal. Mouth/Throat: Mouth: Mucous membranes are moist. Pharynx: Oropharynx is clear. Uvula midline. No oropharyngeal exudate or posterior oropharyngeal erythema. Cardiovascular: Rate and Rhythm: Normal rate and regular rhythm. Heart sounds: Normal heart sounds. Pulmonary: Effort: Pulmonary effort is normal. No respiratory distress. Breath sounds: Wheezing (few, scattered) present. No rales. Musculoskeletal: Cervical back: Neck supple. Lymphadenopathy: Cervical: No cervical adenopathy. Skin: General: Skin is warm and dry. Findings: No erythema or rash. Neurological: Mental Status: He is alert. ASSESSMENT/PLAN: 1. Sinobronchitis - ICD9: 473.9, 490, ICD10: J32.9, J40 - Will begin treatment with as per antibiotic as written, see orders - The patient should also be given mucinex for the first 5-7 days of treatment. - Supportive care with plenty of fluids, rest, and analgesia prn. - DOXYCYCLINE HYCLATE 100 MG CAPSULE - PREDNISONE 20 MG TABLET 2. Middle ear effusion, left - ICD9: 381.4, ICD10: H65.92 - right ear exam is normal. - consider using flonase nasal spray. - Follow-up with your PCP in 3-5 days if symptoms have not improved or sooner if symptoms worsen - Discussed red flags and need for immediate medical evaluation if any occur. - Discussed supportive care treatment with fluids, rest and analgesia. - Discussed expected course of illness Mara Felder APRN.BISHOP documented in this encounter [facility] 01-28-2024 Instructions Mara Felder APRN.BISHOP - 01/28/2024 7:41 AM EDT ASSESSMENT/PLAN: 1. Sinobronchitis - ICD9: 473.9, 490, ICD10: J32.9, J40 - Will begin treatment with as per antibiotic as written, see orders - The patient should also be given mucinex for the first 5-7 days of treatment. - Supportive care with plenty of fluids, rest, and analgesia prn. - DOXYCYCLINE HYCLATE 100 MG CAPSULE - PREDNISONE 20 MG TABLET 2. Middle ear effusion, left - ICD9: 381.4, ICD10: H65.92 - consider using flonase nasal spray. - Follow-up with your PCP in 3-5 days if symptoms have not improved or sooner if symptoms worsen - Discussed red flags and need for immediate medical evaluation if any occur. - Discussed supportive care treatment with fluids, rest and analgesia. - Discussed expected course of illness Mara Felder APRN.CNP ACUTE BRONCHITIS: You have acute bronchitis. This means the airway passages in your lungs are inflamed. Bronchitis may be caused by viruses or bacteria. Inhaling cigarette smoke will always make it worse. Exposure to irritating chemicals or second hand smoke as well as allergies can contribute to bronchitis. Repeat episodes of bronchitis may cause lifelong lung problems. Acute bronchitis is usually treated with rest, fluids, cough medicine, and possibly antibiotics or inhaled medicine to open up the small airways. It is very important that you avoid smoke and drink increased amounts of fluids. A cool air vaporizer can help thin bronchial secretions. This makes it easier to cough and clear your chest. If you are a cigarette smoker, consider using nicotine gum or skin patches to help you withdraw. Recovery from bronchitis is often slow, but you should start feeling better after 2-3 days of treatment. Please call your doctor or return here if you have any of the following symptoms: Increased fever, chills, or chest pain. Severe shortness of breath or bloody sputum. Do not improve after 3 days of proper treatment. documented in this encounter [facility] 08-01-2022 Miscellaneous Notes Called patient. Verified name and date of . Informed of order and verbalizes understanding. Lucero Santizo LPN Pt scheduled for vasectomy on Saturday and is asking for pre-medication pill to take prior to procedure. Pt has a medical delivery driver to and from the appointment. Dia Hooper. We are to call him to let him know once this has been sent over. Giulia Laughlin documented in this encounter [facility] 05-22-2022 History of Presen t illness Narrative Denton Jolley May 22, 2022 Referred by: Self CC: Desires permanent sterilization HPI: 26 year old male states he desire permanent surgical sterilization. Reports fathering 3 children and expressly states he does not desire to father children in the future. Genitourinary history: Hx undescended testis: No Hx stone disease: No Hx UTI/prostatitis/epididimitis/ST I: No Sexual frequency/libido: No Urinary sx: No Hematuria: No FAMILY HISTORY Problem Relation Age of Onset other (murmur) Mother PAST MEDICAL HISTORY Diagnosis Date Atopic eczema 2020 Depression PMH - PAST MEDICAL HISTORY OF 06/27/2001 normal color vision PAST SURGICAL HISTORY Procedure Laterality Date PAST SURGICAL HISTORY OF right hand TONSILLECTOMY PRIMARY/SECONDARY <AGE 10 2001 Current Outpatient Medications Medication Sig DUPIXENT PEN 300 mg/2 mL pen Inject 300 mg subcutaneously every 2 weeks. multivitamin tablet Take 1 tablet by mouth once daily. sertraline (ZOLOFT) 100 mg tablet Take 100 mg by mouth once daily. (Patient not taking: Reported on 07/17/2021 ) No current facility-administered medications for this visit. Allergies: Patient has no known allergies. Social History Tobacco Use Smoking status: Never Smoker Smokeless tobacco: Never Used Vaping Use Vaping Use: Never used Substance Use Topics Alcohol use: Yes Comment: 1-2 beers per month Drug use: Not Currently Occupation/exposures: None ROS: ENMT: No changes in hearing or vision, no nose bleeds or other nasal problems SKIN: Negative for lesions, rash, and itching. ENDOCRINE: Negative for cold or heat intolerance, polyuria, polydipsia and goiter. RESPIRATORY: Negative for cough, wheezing and shortness of breath CARDIOVASCULAR: Negative for chest pain, leg swelling and palpitations GI: Negative for abdominal discomfort, blood in stools or black stools : Negative for dysuria, frequency and incontinence MUSCULOSKELETAL: Negative for joint pain or swelling, back pain, and muscle pain. PSYCH: Negative for sleep disturbance, mood disorder and recent psychosocial stressors. NEURO: Negative All other systems reviewed and are negative. Physical Exam: BP 136/86 (BP Site: Right Arm, BP Position: Sitting, BP Cuff Size: Large Adult) Pulse 78 Temp 37.4 C (99.4 F) (Temporal) Resp 12 Ht 182.9 cm (6') Wt 70.3 kg (155 lb) SpO2 100% BMI 21.02 kg/m General: Well appearing, alert, in no acute distress, well-hydrated, well nourished. ENMT: Negative Neuro: Awake, alert and oriented x 3 Inguinal: No lympnadenopathy and No hernia Gastrointestinal:Non-tender, Soft : Testes: descended, without tenderness, and no masses bilaterally. L Normal ccs - R Normal ccs Phallus; normal, circumcised - , no lesions, Meatus: Orthotopic, patent, no discharge and Scrotum: no lesions, normal rugae Varicocele: No Epididymides: L Normal R Normal Vas deferens: Bilaterally Normal Musculoskeletal: normal, supple and thyroid normal size, non-tender, without nodularity Assessment: 26 year old male desires vasectomy. The patient attests that he watched and understood the [facility] Vasectomy video and read and understood the No-Scalpel Vasectomy pamphlet. He was instructed to stop all NSAIDs, aspirin and other blood thinners 5 days prior to the vasectomy. He was instructed to shave entire front of scrotum to the base of the penis the morning of the vasectomy. Postprocedure care, expectations, and limitations were discussed. He voiced understanding of these instructions and stated his questions were answered. Plan: 1) Proceed to vasectomy scheduling I personally counseled this patient about the following and he voiced understanding: a) Vasectomy is a permanent and irreversible form of sterilization b) 1:1,000 rate of recanalization which can results in the return of sperm into the ejaculate after vasectomy c) Patient must use alternative form of control until he is notified that his postprocedure semen analysis contained no sperm. Consultation requested by Self for an opinion regarding vasectomy and my final recommendations will be communicated back to the requesting physician by way of shared Medical record or letter via [place] mail. Visit duration 30 minutes with approximately 50% of time in counseling AMARI Sherman, BRITTANIE PHILLIPS documented in this encounter [facility] 09-11-2010 History of Past i llness Narrative Problem Noted Date Resolved Date Painful respiration 09/11/2010 04/07/2018 documented as of this encounter (statuses as of 05/22/2022) [facility] History of Past illness Narrative* Problem Noted Date Resolved Date Painful respiration 09/11/2010 04/07/2018 documented as of this encounter (statuses as of 08/01/2022) [facility] History of Past illness Narrative* Problem Noted Date Diagnosed Date Resolved Date Painful respiration 09/11/2010 04/07/20 18 documented as of this encounter (statuses as of 01/28/2024) [facility] Diagnosis Vasectomy evaluation- Primary Other general counseling and advice for contraceptive management [facility] Diagnosis Vasectomy evaluation- Primary Other general counseling and advice for contraceptive management [facility] noteNo assessment information availableWSt. [facility] Work Phone: Evaluation note* Diagnosis Sinobronchitis- Primary Unspecified sinusitis (chronic) Middle ear effusion, left [facility] Diagnosis Anxiety with depression- Primary Irritability [facility] Diagnosis Anxiety with depression Irritability documented in this encounter [facility] note* Diagnosis Anxiety with depression Irritability documented in this encounter [facility] note* Diagnosis Irritability- Primary Anxiety with depression [facility] Diagnosis Elevated blood pressure reading without diagnosis of hypertension- Primary Screening for depression Encounter for screening examination for other mental health and behavioral disorders ADHD (attention deficit hyperactivity disorder), predominantly hyperactive impulsive type Attention deficit disorder with hyperactivity [facility] ([facility]arrative)No reason for referral information availableWSt. [facility] Work Phone: Summary Purpose Family History No Family History Records FoundNo Family History Records FoundNo Family History Records Found Advance Directives No Advanced Directives Records FoundDocuments on File Type Date Recorded Patient Policy Services Representative Expl anation Advance Directive(s) 07/23/2020 11:21 PM Advance Directive Response Recorded Date/ Time Advance Directives No January 11 021 9:47am Living Will No November 11 3:42pm Power of Dairy Husbandry Worker No November 11 023 3:42pm Advance Directive Response Recorded Date/ Time Advance Directives No January 11 021 10:47am Chief Complaint and Reason for Visit Chief Complaint left thumb injury Chief Complaint Admit Date STAT ORDER/FAX RESULTS [phone] March 26, 2025 7:56am Additional Source Comments (unrecognized sect ion and content) No Status Records FoundNo Status Records FoundNo Status Records Found INFORMATION SOURCE (unrecogn ized section and content) DATE CREATED AUTHOR 07/23/2020 [facility] DATE CREATED AUTHOR AUTHOR'S ORGANIZ ATION 04/01/2025 [facility] DATE CREATED AUTHOR AUTHOR'S ORGANIZ ATION 04/01/2025 [facility] Source Comments (unrecognize d section and content) In the event this informatio n is protected by the Federal Confidentiality of Alcohol and Drug Abuse Patient Records regulations: The Federal rules restrict any use of the information to criminally investigate or prosecute any alcohol or drug abuse patient.[facility] the event this information is protected by the Federal Confidentiality of Alcohol and Drug Abuse Patient Records regulations: The Federal rules restrict any use of the information to criminally investigate or prosecute any alcohol or drug abuse patient.[facility] HospitalIn the event this information is protected by the Federal Confidentiality of Alcohol and Drug Abuse Patient Records regulations: The Federal rules restrict any use of the information to criminally investigate or prosecute any alcohol or drug abuse patient.[facility] Hospital[facility] the event this information is protected by the Federal Confidentiality of Alcohol and Drug Abuse Patient Records regulations: The Federal rules restrict any use of the information to criminally investigate or prosecute any alcohol or drug abuse patient.[facility] HospitalIn the event this information is protected by the Federal Confidentiality of Alcohol and Drug Abuse Patient Records regulations: The Federal rules restrict any use of the information to criminally investigate or prosecute any alcohol or drug abuse patient.[facility] HospitalIn the event this information is protected by the Federal Confidentiality of Alcohol and Drug Abuse Patient Records regulations: The Federal rules restrict any use of the information to criminally investigate or prosecute any alcohol or drug abuse patient.[facility] Hospital[facility] the event this information is protected by the Federal Confidentiality of Alcohol and Drug Abuse Patient Records regulations: The Federal rules restrict any use of the information to criminally investigate or prosecute any alcohol or drug abuse patient.[facility] HospitalIn the event this information is protected by the Federal Confidentiality of Alcohol and Drug Abuse Patient Records regulations: The Federal rules restrict any use of the information to criminally investigate or prosecute any alcohol or drug abuse patient.[facility] HospitalIn the event this information is protected by the Federal Confidentiality of Alcohol and Drug Abuse Patient Records regulations: The Federal rules restrict any use of the information to criminally investigate or prosecute any alcohol or drug abuse patient.[facility] Reason for Visit (unrecogniz ed section and content) Reason Comments Vasectomy-1 Reason Comments Orders Reason Comments Cough Cough, ST and ADAMS x 5 days Reason Comments Results Reason Comments Follow Up Reason Comments Rx updated, but not sent to pharmacy Reason Comments ADD/ADHD Care Teams (unrecognized sec tion and content) Scenario Writer Relationship Specialty Start Date End Date Tammy Fowler MD [address] [place], [place] [id number] PCP - General Family Practice 10/04/16 Scenario Writer Relationship Specialty Start Date End Date Tammy Fowler MD [address] [place], [place] [id number] PCP - General Family Medicine 10/04/16 Scenario Writer Relationship Specialty Start Date End Date Tammy Fowler MD [address] [place], [place] [id number] PCP - General Family Medicine 10/04/16 Scenario Writer Relationship Specialty Start Date End Date Tammy Fowler MD [address] [place], [place] [id number] PCP - General Family Medicine 10/04/16 Scenario Writer Relationship Specialty Start Date End Date Tammy Fowler MD [address] [place], [place] [id number] PCP - General Family Medicine 10/04/16 Scenario Writer Relationship Specialty Start Date End Date Tammy Fowler MD [address] [place], [place] [id number] PCP - General Family Medicine 10/04/16 Scenario Writer Relationship Specialty Start Date End Date Tammy Fowler MD [address] [place], [place] [id number] PCP - General Family Medicine 10/04/16 Scenario Writer Relationship Specialty Start Date End Date Tammy Fowler MD [address] [place], [place] [id number] PCP - General Family [facility] 10/04/16 Sybil Haley APRN.PROCESS SAFETY ENGINEERING TECHNOLOGIST [address] [place], [place] [id number] [facility] 10/12/24 Cinda Caldera APRN.PROCESS SAFETY ENGINEERING TECHNOLOGIST [address] [place], [place] [id number] [facility] 10/12/24 Team Status: Active Member Role Status Dates No Primary Care Physician Family Provider Active Dr. Tammy Fowler MD Primary Care Provider Active Team Status: Inactive Member Role Status Dates Dr. Tammy Fowler MD Primary Care Provider Active Start: March 26, 2025 End: March 26, 2025 SUSU Ferris Attending Provider Active Start: March 26, 2025 End: March 26, 2025 SUSU Ferris Referring Provider Active Start: March 26, 2025 End: March 26, 2025 Goals (unrecognized section and content) Goals may be documented in a n alternate sectionGoals may be documented in an alternate section FOR RECORDS PERTAINING TO PATIENTS WHO ARE OR HAVE BEEN ENROLLED IN A CHEMICAL DEPENDENCY/SUBSTANCEABUSE PROGRAM, SOME INFORMATION MAY BE OMITTED. This clinical summary was aggregated from multiple sources. Caution should be exercised in using it in the provision of clinical care. This summary normalizes information from multiple sources, and as a consequence, information in this document may materially change the coding, format and clinical context of patient data. In addition, data may be omitted in some cases. CLINICAL DECISIONS SHOULD BE BASED ON THE PRIMARY CLINICAL RECORDS. [facility]. provides no warranty or guarantee of the accuracy or completeness of information in this document.
--- NOTE | 2025-05-01 19:30 | EX.ED.GENINJ ---
HPI History of Present Illness Chief Complaint: Bite Detail of Chief Complaint: Bitten by feral cat left long finger Informant: patient and spouse/S.O. Onset/Context/Timing Onset: Hours Location of pain/injuries: Left hand (Long finger over the middle phalanx dorsal surface) Current Severity: Gone Maximum Severity: Mild Worsened by: Bite Relieved by: Not applicable Associated Symptoms Associated Symptoms: Negative for Parasthesias, Weakness, Loss of function, Inability to ambulate, Loss of consciousness or Amnesia Narrative Narrative: Patient is a healthy 29-year-old male. He presents because of cat bite. It was a feral cat. Cat is not acting appropriately. He has no allergy to antibiotics. He denies paresthesia, anesthesia Medicus. Prior similar symptoms: No Recent Illness/Hospitalization: No PFSH PFSH Home Medications ?Medication ?Instructions ?Recorded ?Last Taken ?Type naproxen 500 mg tablet 500 mg PO BID PRN #20 tabs 10/13/16 Unknown Rx cephalexin 500 mg capsule 500 mg PO Q6 #40 caps 11/11/22 Unknown Rx amoxicillin 875 mg-potassium 875 mg PO Q12H #6 TABLETS 05/01/25 Unknown Rx clavulanate 125 mg tablet Allergy/AdvReac Type Severity Reaction Status Date / Time No Known Allergies Allergy Verified 05/01/25 19:11 Family History no significant family his Surgical History (Updated 05/01/25 @ 19:26 by Dejon Hernandez) History of tonsillectomy Social History (Updated 05/01/25 @ 19:[address] Lee Gentile MD) household members: spouse and children housing: house Smoking Status: Never smoker ROS ROS ED Constitutional Constitutional ED: Denies chills, fever(s) or subjective Musculoskeletal Musculoskeletal: Reports other Details: Negative joint pain. Integumentary Reports other Details: Cat bite dorsal surface left long finger Neurologic Neurologic: Denies paresthesias or weakness Hematologic/Lymphatic Hematologic/Lymphatic: Denies easy bleeding or easy bruising EXAM Physical Exam Const Vital Signs: 05/01/25 19:09 Temperature 97.9 F Temperature Source Temporal Pulse Rate 75 Respiratory Rate 14 Blood Pressure 131/77 H Blood Pressure Mean 95 Pulse Ox 100 Oxygen Delivery Method Room Air Positive well nourished and well developed General Appearance ED: well developed and NAD HEENT HEENT Narrative: Head is normocephalic. There is no gross abnormality. atraumatic Eyes PERRL and EOMs intact bilaterally General Eye ED: Yes other Other Details: No scleral icterus. Neck full ROM Resp normal respiratory effort Cardio regular rhythm and S1 normal heart sound Extremity Negative for normal to inspection Extremity Narrative: Cat bite dorsal surface of left long finger. There is no tenderness over the extensor commonness tendon. There is no evidence of infection. Median, radial and ulnar function intact. Capillary refill is normal. Sensation is normal. Neuro oriented x3 and CN's II-XII intact bilaterally Psych mental status grossly normal and thought process normal Skin Skin Narrative: Cat bite previously described PROC Procedures Other Procedures Procedure(s): Injection of rabies immunoglobulin by me radial and ulnar side of the left long finger in the webspace MDM MDM MDM Narrative Medical decision making narrative: Since it is a feral cat and the cat was not acting appropriately. informing that this gait was abnormal. Will treat with Augmentin for cat bite and he will receive rabies vaccine and immunoglobulin. The immunoglobulin was administered by me. Discharge Plan Triage Chief Complaint: Bite ED Provider: Lee Gentile Dx/Rx/DC Orders Clinical Impression: Cat bite of middle finger, Encounter for prophylactic rabies immune globin, Need for prophylactic vaccination and inoculation against rabies Instructions: ED Cat Bite Prescriptions: New amoxicillin-pot clavulanate 875-125 mg tablet 875 mg PO Q12H Qty: 6 0RF No Action naproxen 500 MG tablet 500 mg PO BID PRN Qty: 20 0RF cephalexin [cephalexin] 500 mg capsule 500 mg PO Q6 Qty: 40 0RF Primary Care Provider: Saeid Fowler Referrals: Saeid Fowler MD [Primary Care Provider] - 2 Days for wound check Print Language: Turkish Disposition Disposition: Home, Self Care
[2025-05-01] MEDS: Amox/Clavulanate 875 MG Tablet PO (19:42)
[2025-05-01] MEDS: Rabies Immune Globulin/PF 300 UNIT/ML, 5 ML VIAL 1690 UNIT IM (20:20)
[2025-05-01] MEDS: Rabies Vaccine,Human Diploid 2.5 UNITS Vial IM (20:37)
[2025-05-01 21:03] VITALS: BP 131/77; PULSE 75; RESP 14; TEMP 36.6; O2SAT 100
== END 2025-05-01 21:03 | disposition home or self-care (01) ==
PROVIDERS: Emergency Provider Emergency Medicine; PCP Family Medicine; Visit Provider Emergency Medicine
DX: S61.253A Open bite of left middle finger without damage to nail, initial encounter (principal); W55.01XA Bitten by cat, initial encounter; Z23 Encounter for immunization
CPT/HCPCS: 90675; 96372; 99283; 90375

== ENCOUNTER → 2025-05-04 | Outpatient (CLI) | payer OTHER, SELFPAY ==
[2025-05-04 15:44] VITALS: BP 140/74; PULSE 59; RESP 16; TEMP 36.2; O2SAT 98
[2025-05-04 15:45] VITALS: BP 140/64; PULSE 59; RESP 16; O2SAT 97; BMI 26.4
[2025-05-04 16:27] VITALS: BMI 25.7
== END | disposition home or self-care (01) ==
PROVIDERS: PCP Family Medicine; Visit Provider Emergency Medicine
DX: Z23 Encounter for immunization (principal)
CPT/HCPCS: 90675

== ENCOUNTER 2025-05-09 15:37 | Outpatient (CLI) | payer OTHER, SELFPAY ==
[2025-05-09 15:39] VITALS: BP 144/79; PULSE 60; RESP 18; TEMP 35.9; O2SAT 97; BMI 26.4
--- NOTE | 2025-05-09 15:58 | ED.RN ---
called pharmacy to inquire about rabies vaccine
--- OUTSIDE RECORDS SUMMARY | 2025-05-09 16:24 | XMS RPT_ITS | CCD ---
Author Organization [facility] Care Team Providers Care Tack Driller Name Role Phone Tammy Fowler MD Primary Care Provider Tammy Fowler MD Primary Care Provider Tera ANCIENT ART CURATOR.Sybil ALAS Unavailable Werner ANCIENT ART CURATOR.Cinda ALAS Unavailable [phone] Dr. Tammy Fowler MD Primary Care Provider Linsey Clemens Attending Provider [phone] Linsey Clemens Referring Provider [phone] LINSEY VAUGHN Referring Unavailable TAMMY FOWLER Primary Care Unavailable TAMMY FOWLER Primary Care Unavailable LINSEY VAUGHN Attending Unavailable CINDA CALDERA Attending Unavailable TAMMY FOWLER Primary Care Unavailable CINDA CALDERA Attending Unavailable TAMMY FOWLER Primary Care Unavailable Dr. Lee Gentile MD Emergency Provider Dr. Lee Gentile MD Attending Provider Tammy Fowler Primary Care Unavailable Linsey Vaughn Attending Unavailable Linsey Vaughn Referring Unavailable Lee Gentile Attending Unavailable Tammy Fowler Primary Care Unavailable Lee Gentile Attending Unavailable Tammy Fowler Primary Care Unavailable Medications Current Medications Medication Drug Class(es) Dates Sig (Normalized) Sig (Original) amoxicillin 875 mg / clavulanate 125 mg oral tablet (2 sources) Penicillin-class Antibacterial Start: 05-01-2025 take 1 tablet by mouth every twelve hours Amoxicillin-Pot Clavulanate 875-125 mg tablet Active 875 mg PO Q12H 6 0 May 01, 2025 12:00am atomoxetine 40 mg oral capsule (1 source) Norepinephrine Reuptake Inhibitor Start: 01-07-2025 End: 02-06-2025 take 1 capsule by mouth once daily atomoxetine (STRATTERA) 40 mg capsule Indications: ADHD (attention deficit hyperactivity disorder), predominantly hyperactive impulsive type Take 1 capsule by mouth once daily. 30 capsule 01/07/2025 02/06/2025 Active cephalexin 500 mg oral capsule (4 sources) Cephalosporin Antibacterial Start: 11-11-2022 take 1 capsule by mouth every six hours Cephalexin 500 mg capsule Active 500 mg PO EVERY 6 HOURS 40 0 November 11, 2022 1:00am diazePAM 10 mg [...] on above: Take 1 capsule by mo [facility] two times a day for 7 [...] once daily. naproxen 500 mg oral tablet (4 sources) Nonsteroidal Anti-inflammatory Drug Start: 10-13-20 take 1 tablet by mouth twice daily as needed Naproxen 500 MG tablet Active 500 mg PO TWICE DAILY NEEDED October 13, 2016 1:00am predniSONE 20 mg oral tablet (1 source) Start: 01-28-20 End: 02-01-20 take 2 tablets by mouth once daily at mealtime predniSONE (DELTASONE) 20 mg tablet Indications: Sinobronchitis Take 2 tablets by mouth once daily for 4 days. Take daily with food. 8 tablet 0 01/28/2024 02/01/2024 Active Comment on above: Take 2 tablets by mo [facility] once daily for 4 days. Take [...] Onset: 01-07-2025 Chronic Contraceptive and procreative management (6 sources) Patient encounter status; Translations: [Encounter for other general counseling and advice on contraception] Episodic E Codes: Cut/pierceb (4 sources) Accidents caused by cutting and piercing instruments or objects ; Translations: [Contact with other powered hand tools and household machinery, initial encounter] 11-19-2022 Episodic Headache; including migraine (4 sources) Headache; Translations: [Headache] 04-27-2021 Episodic Immunizations and screening for infectious disease (3 sources) Requires rabies vaccination course; Translations: [Encounter for immunization] Onset: 05-06-2025 05-01-2025 Episodic Open wounds of extremities (7 sources) Puncture wound of thumb of left hand; Translations: [Puncture wound without foreign body of left thumb without damage to nail, initial encounter] Onset: 05-06-2025 11-19-2022 Episodic Other circulatory disease (4 sources) Nasal discharge; Translations: [Other specified symptoms [...] Onset: 01-07-2025 Episodic Other lower respiratory disease (4 sources) Cough; Translations: [Cough] 03-17-2021 Episodic Other upper respiratory disease (4 sources) Congestion of nasal sinus; Translations: [Nasal congestion] 03-17-2021 Episodic Other upper respiratory infections (1 source) Chronic sinusitis; Translations: [Chronic sinusitis, unspecified] 01-28-2024 Chronic Other upper respiratory infections (4 sources) Sore throat symptom; Translations: [Acute pharyngitis, [...] disorders] Onset: 01-07-2025 Episodic Superficial injury; contusion (4 sources) Contusion of foot; Translations: [Contusion of [...] Results Test Name Value Interpretation Reference Range [facility] Emergency Department Summary on 05-01-2025 Emergency Department Summary [facility] Medical Records Department [address] [place] [id number] Emergency Department Summary 05/01/25 MR#: [id number] Acct: [id number] Name: DENTON JOLLEY Rep #: [id number] : 1995 29 From: Lee Gentile MD PCP: Dr. Tammy Fowler MD Status:REG ER Location: ED HPI History of Present Illness Chief Complaint: Bite Detail of Chief Complaint: Bitten by feral cat left long finger Informant: patient and spouse/S.O. Onset/Context/Timing Onset: Hours Location of pain/injuries: Left hand (Long finger over the middle phalanx dorsal surface) Current Severity: Gone Maximum Severity: Mild Worsened by: Bite Relieved by: Not applicable Associated Symptoms Associated Symptoms: Negative for Parasthesias, Weakness, Loss of function, Inability to ambulate, Loss of consciousness or Amnesia Narrative Narrative: Patient is a healthy 29-year-old male. He presents because of cat bite. It was a feral cat. Cat is not acting appropriately. He has no allergy to antibiotics. He denies paresthesia, anesthesia Medicus. Prior similar symptoms: No Recent Illness/Hospitalizati on: No PFSH PFSH Home Medications ???Medication ???Instructions ???Recorded ???Last Taken ???Type naproxen 500 mg tablet 500 mg PO BID PRN #20 tabs 6 Unknown Rx cephalexin 500 mg capsule 500 mg PO Q6 #40 caps 11/11/22 Unk nown Rx amoxicillin 875 mg-potassium 875 mg PO Q12H #6 TABLETS 05/01/25 Unknown Rx clavulanate 125 mg tablet Allergy/AdvReac Type Severity Reaction Status Date / Time No Known Allergies Allergy Verified 05/01/25 19:11 Family History no significant family his Surgical History (Updated 05/01/25 @ 19:26 by Dejon Hernandez) History of tonsillectomy Social History (Updated 05/01/25 @ 19:[address] Lee Gentile MD) household members: spouse and children housing: house Smoking Status: Never smoker ROS ROS ED Constitutional Constitutional ED: Denies chills, fever(s) or subjective Musculoskeletal Musculoskeletal: Reports other Details: Negative joint pain. Integumentary Reports other Details: Cat bite dorsal surface left long finger Neurologic Neurologic: Denies paresthesias or weakness Hematologic/Lymphatic Hematologic/Lymphatic : Denies easy bleeding or easy bruising EXAM Physical Exam Const Vital Signs: 05/01/25 19:09 Temperature 97.9 F Temperature Source Temporal Pulse Rate 75 Respiratory Rate 14 Blood Pressure 131/77 H Blood Pressure Mean 95 Pulse Ox 100 Oxygen Delivery Method Room Air Positive well nourished and well developed General Appearance ED: well developed and NAD HEENT HEENT Narrative: Head is normocephalic. There is no gross abnormality. atraumatic Eyes PERRL and EOMs intact bilaterally General Eye ED: Yes other Other Details: No scleral icterus. Neck full ROM Resp normal respiratory effort Cardio regular rhythm and S1 normal heart sound Extremity Negative for normal to inspection Extremity Narrative: Cat bite dorsal surface of left long finger. There is no tenderness over the extensor commonness tendon. There is no evidence of infection. Median, radial and ulnar function intact. Capillary refill is normal. Sensation is normal. Neuro oriented x3 and CN's II-XII intact bilaterally Psych mental status grossly normal and thought process normal Skin Skin Narrative: Cat bite previously described PROC Procedures Other Procedures Procedure(s): Injection of rabies immunoglobulin by or radial and ulnar side of the left long finger in the webspace MDM MDM MDM Narrative Medical decision making narrative: Since it is a feral cat and the cat was not acting appropriately. informing that this gait was abnormal. Will treat with Augmentin for cat bite and he will receive rabies vaccine and immunoglobulin. The immunoglobulin was administered by me. Discharge Plan Triage Chief Complaint: Bite ED Provider: Lee Gentile Dx/Rx/DC Orders Clinical Impression: Cat bite of middle finger, Encounter for prophylactic rabies immune globin, Need for prophylactic vaccination and inoculation against rabies Instructions: ED Cat Bite Prescriptions: New amoxicillin-pot clavulanate 875-125 mg tablet 875 mg PO Q12H Qty: 6 0RF No Action naproxen 500 MG tablet 500 mg PO BID PRN Qty: 20 0RF cephalexin [cephalexin] 500 mg capsule 500 mg PO Q6 Qty: 40 0RF Primary Care Provider: Tammy Fowler Referrals: Tammy Fowler MD [Primary Care Provider] - 2 Days for wound check Print Language: Hungarian Disposition Disposition: Home, Self Care What to do if you have Problems For any increased pain, shortness of breath, bleeding, nausea or vomiting, chest pain, or any unexpected problems, contact your Primary Care Provider. C (more content not included)... [facility] Office Visit (WSTR ) DENTON JOLLEY ([id number]) 1995 M Date Time Provider Department 03/26/25 7:30 AM LINSEY VAUGHN [facility] During your visit today, we recorded the following information about you: Temperature Pulse Respiration Blood pressure 97.4 degrees 54/minute 18/minute 133/82 Weight 83.8 kg Linsey Vaughn APRN.BOBCAT OPERATOR 03/26/2025 9:23 AM Signed [facility] Subjective Denton Jolley is a 29 [...] or do not improve. and Recording using [employer] Education software for draft documentation of the visit was discussed with the patient/authorized equal opportunity representative; all questions welcomed and answered. Patient/authorized equal opportunity representative agreed to proceed MDM Procedures Allergies As of Date: 03/26/2025 (No Known Allergies) Date Reviewed: 03/26/2025 Reviewed by: Latanya Zeng MA - Fully Assessed Reason for Visit: Cough [28] Cmt: Head and chest congestion x3 weeks Primary Visit Diagnosis:Acute cough [R05.1] Other Visit Diagnosis:Rhinosinusi tis [J32.9] Order(s):XR CHEST 2V FRONTAL/LAT [[id number]] Order #: [id number] FUTURE doxycycline (VIBRA-TABS) 100 mg tabletTake 1 [...] Encounter Status:Closed by LINSEY VAUGHN on 03/26/25 [facility] DENTON JOLLEY ([id number]) 1995 M Date Time Provider Department 03/26/25 LINSEY VAUGHN [facility] During your visit today, we recorded the following information about you: Linsey Vaughn APRN.[facility] 03/26/2025 9:24 AM Signed Please call let patient know he is negative for chest x-ray. Let patient know I called in doxycycline twice a day for a week for his sinus infection. If his symptoms do not improve follow-up with primary care Linsey Vaughn APRN.[facility] 03/26/2025 10:27 AM Signed Called back talked [...] Encounter Status:Closed by LINSEY VAUGHN on 03/26/25 [facility] Chest PA and Lateralon 03-26 Chest PA and Lateral [facility] Imaging Services [address] [place], [place] [address] Chest PA and Lateral MR#: [id number] Acct: [id number] Name: DENTON JOLLEY Rep #: [id number] : 1995 M 29 From: Tyrel warren MD PCP: Dr. Tammy Fowler MD Status: REG CLI Study: Chest PA and Lateral Date of Exam: 03/26/25 Exam# [id number] Ordering Dr: Linsey Vaughn NP PROCEDURE: CHEST PA AND LATERAL 03/26/2025 REASON FOR EXAM: COUGH TECHNIQUE: Frontal and lateral views of the chest. COMPARISON: None FINDINGS: Hardware: None Heart: The heart size is normal. Mediastinum: The mediastinal contour is unremarkable. Lungs: The lungs are clear. Bones: The bones are unremarkable. RAD/Chest PA and Lateral IMPRESSION: NEGATIVE CHEST Reading Location: [facility] CC: SUSU Vaughn; Dr. Tammy Fowler MD Business Information Consultant: Signed Normal [facility] CNOVon 01-07-2025 [facility] Office Visit (FAMPWS ) DENTON JOLLEY ([id number]) 1995 M Date Time Provider Department 01/07/25 4:20 PM CINDA CALDERA During your visit today, we recorded the following information about you: Temperature Pulse Blood pressure Weight 97.8 degrees 68/minute 140/78 85.3 kg Cinda Caldera APRN.[facility] 01/07/2025 4:52 PM Signed This is a 29 year old male who presents today with: Patient presents with: ADD/ADHD HISTORY OF PRESENT ILLNESS: Denton Jolley is a 29 year old male. Patient presents with: ADD/ADHD [place] like fluoxetine just numbed him out. Behavior [...] daily 2) DME- BP cuff sent to [employer] [facility] 3) Send me 3 BP [...] hyperactivity disorder) (more content not included)... [facility] DENT[facility] JOL[facility] ([id number]) 1995 Date Time Provider Department 07/16/24 TAMMY FOWLER [facility] During your visit today, we recorded the following information about you: Yoselin Dietrich 07/16/2024 3:56 PM Signed Patient said he was told his rx fluoxetine 40 mg was sent to [place]. It was updated in chart, but not sent. He would like a call back at [phone] when sent. Tammy Fowler MD 07/16/2024 4:20 PM Signed Sorry Ej Boland MA 07/16/2024 4:33 PM Signed Called and left generic message on that Rx has been sent to Pharmacy as requested. If questions to contact office and speak with Triage Nurse. Ej Faria MA Allergies As of Date: 07/16/2024 (No Known Allergies) Date Reviewed: 06/11/2024 Reviewed by: Cinda Caldera APRN.BOBCAT OPERATOR - Fully Assessed Reason for Visit: Rx [...] Encounter Status:Closed by EJ FARIA on 07/16/24 Normal [facility] Telephone (INTMWS) DENTON JOLLEY ([id number]) 1995 M Date Time Provider Department 07/16/24 CINDA CALDERA INTWS During your visit today, we recorded the following information about you: Vanessa Soria LPN 07/16/2024 2:29 PM Signed Patient is wanting to increase to Fluoxetine to 40mg, feels he has leveled out, not really effects anymore. Asking for new RX to go to [facility]. Denton took his last pill this AM, [...] Allergies) Date Reviewed: 06/11/2024 Reviewed by: Cinda Caldera, ANCIENT ART CURATOR.BOBCAT OPERATOR - Fully Assessed Visit Diagnoses:Anxiety with depression [...] Encounter Status:Closed by LORI WILKES on 07/16/24 [facility] CNOVdanita 06-11-2024 CN Office Visit (FAMPWS ) SHOLADENTON Bryant ([id number]) 1995 M Date Time Provider Department 06/11/24 3:40 PM [facility] During your visit today, we recorded the following information about you: Pulse Blood pressure Weight Height 68/minute 136/80 78.5 kg 1.829 m Cinda Caldera APRN.BOBCAT OPERATOR 06/11/2024 3:57 PM Signed This is a [...] Date Reviewed: 06/11/2024 Reviewed by: Cinda Caldera APRN.BOBCAT OPERATOR - Fully Assessed Reason for Visit: Follow [...] Service: OFFICE/OUTPATIENT ESTABLISHED LOW MDM 20 MIN [17211] Disposition: Return in about 3 months (around 09/11/2024) for stress level. Follow-up and Disposition History for Encounter Date Provider Department Center 06/11/2024 [id number]-HHKKIFOLIVER CALDERA*FAMPWS [facility] [place] Encounter Status:Closed by CINDA CALDERA on 06/11/[address] [facility] CBC W Auto Differential pane l (Bld)on 02-28-2024 Basophils (Bld) [#/Vol] [facility] Basophils/100 WBC (Bld) 0.2 % [facility] Differential cell count method Nom (Bld) Auto [facility] Eosinophils (Bld) [#/Vol] 0.10 10*3/uL [facility] Eosinophils/100 WBC (Bld) 1.1 % [facility] Erythrocyte distribution width (RBC) [Ratio] 11.9 % 11.5 - 15.0 % [facility] Hematocrit (Bld) [Volume fraction] 46.1 % 39.0 - 51.0 % [facility] Hemoglobin (Bld) [Mass/Vol] 16.0 g/dL 13.0 - 17.0 g/dL [facility] Immature granulocytes (Bld) [#/Vol] 0.03 10*3/uL [facility] Immature granulocytes/100 WBC (Bld) 0.3 % [facility] Lymphocytes (Bld) [#/Vol] 3.16 10*3/uL [facility] Lymphocytes/100 WBC (Bld) 35.0 % [facility] MCH (RBC) [Entitic mass] 30.4 pg 26.0 - 34.0 pg [facility] MCHC (RBC) [Mass/Vol] 34.7 g/dL 30.5 - 36.0 g/dL [facility] MCV (RBC) [Entitic vol] 87.6 fL 80.0 - 100.0 fL [facility] Monocytes (Bld) [#/Vol] 0.77 10*3/uL [facility] Monocytes/100 WBC (Bld) 8.5 % [facility] Neutrophils (Bld) [#/Vol] 4.94 10*3/uL [facility] Neutrophils/100 WBC (Bld) 54.9 % [facility] Nucleated RBC (Bld) [#/Vol] NINF [facility] Nucleated RBC/100 WBC (Bld) [Ratio] 0.0 % /100 WBC [facility] Platelet mean volume (Bld) [Entitic vol] 10.5 fL 9.0 - 12.7 fL [facility] Platelets (Bld) [#/Vol] 226 10*3/uL [facility] RBC (Bld) [#/Vol] 5.26 10*6/uL 4.20 - 6.0 0 m/uL [facility] WBC (Bld) [#/Vol] 9.02 10*3/uL [facility] ALLIED HEALTHon 07-24-2020 ALLIED HEALTH HNO ID: [id number] Author: Lilly (Rt) Mayi Tarango Service: Radiology Author Type: Senior Instructor Type: Allied Health Filed: 07/23/2020 11:27 PM [...] RT Kassy July 23, 2020 11:26 PM [facility] ED NOTEon 07-24-2020 ED NOTE HNO ID: [id number] Author: Michelle ReedRnPaz Robison RN Service: ? Author Type: Registered Nurse Type: ED Notes Filed: 07/24/2020 12:07 AM Note Text: dr glez at bedside to talk with pt regarding results and plan of care. [facility] ED NOTE HNO ID: [id number] Author: Michelle Robison RN Service: ? Author Type: Registered Nurse Type: ED Notes Filed: 07/24/2020 12:07 AM Note Text: pt given dc instructions and follow up care he verbalized understanding. [facility] ED NOTE HNO ID: [id number] Author: Michelle Robison RN Service: ? Author Type: Registered Nurse Type: ED Notes Filed: 07/24/2020 12:01 AM Note Text: pt given air cast and crutches, [facility] ED NOTE HNO ID: [id number] Author: Michelle Robison RN Service: ? Author Type: Registered Nurse Type: ED Notes Filed: 07/23/2020 11:16 PM Note Text: xr at bedside [facility] ED NOTE HNO ID: [id number] Author: Michelle Robison RN Service: ? Author Type: Registered Nurse Type: ED Notes Filed: 07/23/2020 11:07 PM Note Text: dr glez in room [facility] ED NOTE HNO ID: [id number] Author: Michelle Robison RN Service: ? Author Type: Registered Nurse Type: ED Notes Filed: 07/23/2020 11:02 PM Note Text: pt offered ice pack Normal [facility] ED PROV NOTEon 07-24-2020 ED PROV NOTE HNO ID: [id number] Author: Lavelle Glez MD Service: ? Author [...] ankle. PAST MEDICAL HISTORY Diagnosis Date - [facility] - PAST MEDICAL HISTORY OF 06/27/01 normal color vision PAST SURGICAL HISTORY Procedure Laterality Date - PAST SURGICAL HISTORY OF right hand - REMOVAL OF TONSILS,<10 Y/O 2001 FAMILY HISTORY Problem Relation Age of Onset [...] cast and give crutches, follow-up with orthopedic configuration management consultant PRN ED Course / Clinical Impression Clinical Impressions as of Jul 23 2344 Right ankle sprain Acute right ankle pain MDM / Disposition / Plan MDM SIGNATURE: MD Lavelle Zaragoza MD 07/23/20 2356 [facility] XR ANKLE 3V AP/LAT/OBL RTon 07-24-2020 XR [...] Right foot: Negative for fracture or malalignment. Business Information Consultant: EDMUND Transcribe Date/Time: Jul 23 2020 11:47P Dictated by : JULIUS PENNY MD This examination was interpreted and the report reviewed and electronically signed by: JULIUS PENNY MD on Jul 23 2020 11:49PM EST [id number] [facility] XR FOOT 3V AP/LAT/OBL RTon 0 07-24-2020 XR FOOT 3V AP/LAT/OBL RT * * *Final Report* * * DATE OF EXAM: Jul 23 2020 11:24PM MDX [id number] - XR FOOT 3V AP/LAT/OBL RT / PROCEDURE REASON: Foot trauma, [facility] neg, initial exam * * * * [...] Right foot: Negative for fracture or malalignment. Business Information Consultant: EDMUND Transcribe Date/Time: Jul 23 2020 11:47P Dictated by : JULIUS PENNY MD This examination was interpreted and the report reviewed and electronically signed by: JULIUS PENNY MD on Jul 23 2020 11:49PM EST [id number] [facility] Vital Signs Date Time Vital Sign Value Performing Clinician Facility 05-04-2025 16:27-0400 Body mass index (BMI) [Ratio] 25.7 kg/m2 Dr. Tammy Fowler MD Work Phone: 0(128)[phone] [place] [address] 05-04-2025 16:27-0400 Body weight 86.[address] Tammy Fowler MD Work Phone: 6(126)219-949602 [place] [address] 05-04-2025 15:45-0400 Body height 182.[address] Tammy Fowler MD Work Phone: 0(452)755-530202 [place] [address] 05-04-2025 15:45-0400 Diastolic blood pressure 64 mm[Hg] Dr. Tammy Fowler MD Work Phone: 4(964)762-344002 [place] [address] 05-04-2025 15:45-0400 Heart rate 59 /min Dr. Tammy Fowler MD Work Phone: [facility] 05-04-2025 15:45-0400 Respiratory rate 16 /min Dr. Tammy Fowler MD Work Phone: [facility] 05-04-2025 15:45-0400 SaO2% (BldA) [Mass fraction] 97 % Dr. Tammy Fowler MD Work Phone: 8(964)183-981561 [place] [address] 05-04-2025 15:45-0400 Systolic blood pressure 140 mm[Hg] Dr. Tammy Fowler MD Work Phone: 3(949)408-929061 [place] [address] 05-04-2025 15:44-0400 Body temperature 97.1 [degF] Dr. Tammy Fowler MD Work Phone: 7(957)029-057561 [place] [address] 05-01-2025 21:03-0400 Body temperature 97.9 [degF] Dr. Tammy Fowler MD Work Phone: 6(225)197-232661 [place] [address] 05-01-2025 21:03-0400 Diastolic blood pressure 77 mm[Hg] Dr. Tammy Fowler MD Work Phone: 2(420)533-354961 [place] [address] 05-01-2025 21:03-0400 Heart rate 75 /min Dr. Tammy Fowler MD Work Phone: 8(477)605-523461 [place] [address] 05-01-2025 21:03-0400 Respiratory rate 14 /min Dr. Tammy Fowler MD Work Phone: 5(972)660-154561 [place] [address] 05-01-2025 21:03-0400 SaO2% (BldA) [Mass fraction] 100 % Dr. Tammy Fowler MD Work Phone: 4(849)859-638661 [place] [address] 05-01-2025 21:03-0400 Systolic blood pressure 131 mm[Hg] Dr. Tammy Fowler MD Work Phone: 7(909)273-511761 [place] [address] 05-01-2025 19:09-0400 Body height 182.[address] Tammy Fowler MD Work Phone: 0(783)849-824661 [place] [address] 05-01-2025 19:09-0400 Body mass index (BMI) [Ratio] 25.2 kg/m2 Dr. Tammy Fowler MD Work Phone: 1(092)504-451661 [place] [address] 05-01-2025 19:09-0400 Body weight 84.[address] Tammy Fowler MD Work Phone: 2(544)522-609861 [place] [address] 01-07-2025 16:16-0500 Body mass index (BMI) [Ratio] 25.5 kg/m2 Cinda Suppan ANCIENT ART CURATOR.BOBCAT OPERATOR Work Phone: [facility] 01-07-2025 16:16-0500 Body temperature 97.81 [degF] Cinda Suppan ANCIENT ART CURATOR.BOBCAT OPERATOR Work Phone: [facility] 01-07-2025 16:16-0500 Body weight 85.28 kg Cinda Suppan ANCIENT ART CURATOR.BOBCAT OPERATOR Work Phone: [facility] 01-07-2025 16:16-0500 Diastolic blood pressure 78 mm[Hg] Cinda Suppan ANCIENT ART CURATOR.BOBCAT OPERATOR Work Phone: [facility] 01-07-2025 16:16-0500 Heart rate 68 /min Cinda Suppan ANCIENT ART CURATOR.BOBCAT OPERATOR Work Phone: [facility] 01-07-2025 16:16-0500 SaO2% (BldA) [Mass fraction] 100 % Cinda Suppan ANCIENT ART CURATOR.BOBCAT OPERATOR Work Phone: [facility] 01-07-2025 16:16-0500 Systolic blood pressure 140 mm[Hg] Cinda Suppan ANCIENT ART CURATOR.BOBCAT OPERATOR Work Phone: [facility] 06-11-2024 15:56-0400 Diastolic blood pressure 80 mm[Hg] Cinda Suppan ANCIENT ART CURATOR.BOBCAT OPERATOR Work Phone: [facility] 06-11-2024 15:56-0400 Systolic blood pressure 136 mm[Hg] Cinda Suppan ANCIENT ART CURATOR.BOBCAT OPERATOR Work Phone: [facility] 06-11-2024 15:43-0400 Body height 182.9 cm Cinda Suppan ANCIENT ART CURATOR.BOBCAT OPERATOR Work Phone: [facility] 06-11-2024 15:43-0400 Body mass index (BMI) [Ratio] 23.46 kg/m2 Cinda Suppan ANCIENT ART CURATOR.BOBCAT OPERATOR Work Phone: [facility] 06-11-2024 15:43-0400 Body weight 78.47 kg Icnda Suppan ANCIENT ART CURATOR.BOBCAT OPERATOR Work Phone: [facility] 06-11-2024 15:43-0400 Heart rate 68 /min Cinda Suppan ANCIENT ART CURATOR.BOBCAT OPERATOR Work Phone: [facility] 06-11-2024 15:43-0400 SaO2% (BldA) [Mass fraction] 98 % Cinda Suppan ANCIENT ART CURATOR.BOBCAT OPERATOR Work Phone: [facility] 02-28-2024 16:17-0400 Body mass index (BMI) [Ratio] 22.51 kg/m2 Cinda Suppan ANCIENT ART CURATOR.MEDICARE COORDINATOR Work Phone: [facility] 02-28-2024 16:17-0400 Body weight 75.3 kg Cinda Suppan ANCIENT ART CURATOR.MEDICARE COORDINATOR Work Phone: [facility] 02-28-2024 16:17-0400 Diastolic blood pressure 76 mm[Hg] Cinda Suppan ANCIENT ART CURATOR.MEDICARE COORDINATOR Work Phone: [facility] 02-28-2024 16:17-0400 Heart rate 58 /min Cinda Suppan ANCIENT ART CURATOR.MEDICARE COORDINATOR Work Phone: [facility] 02-28-2024 16:17-0400 Respiratory rate 16 /min Cinda Suppan ANCIENT ART CURATOR.MEDICARE COORDINATOR Work Phone: [facility] 02-28-2024 16:17-0400 SaO2% (BldA) [Mass fraction] 98 % Cinda Suppan ANCIENT ART CURATOR.MEDICARE COORDINATOR Work Phone: [facility] 02-28-2024 16:17-0400 Systolic blood pressure 124 mm[Hg] Cinda Suppan ANCIENT ART CURATOR.MEDICARE COORDINATOR Work Phone: [facility] 01-28-2024 07:31-0400 Body temperature 97.39 [degF] Mara Felder ANCIENT ART CURATOR.BOBCAT OPERATOR Work Phone: [facility] 01-28-2024 07:31-0400 Body weight 74.7 kg Mara Felder ANCIENT ART CURATOR.BOBCAT OPERATOR Work Phone: [facility] 01-28-2024 07:31-0400 Diastolic blood pressure 80 mm[Hg] Mara Praisler-Wood ANCIENT ART CURATOR.BOBCAT OPERATOR Work Phone: [facility] 01-28-2024 07:31-0400 Heart rate 50 /min Mara Praisler-Wood ANCIENT ART CURATOR.[facility] Work Phone: [facility] 01-28-2024 07:31-0400 Respiratory rate 16 /min Mara Praisler-Wood ANCIENT ART CURATOR.BOBCAT OPERATOR Work Phone: [facility] 01-28-2024 07:31-0400 SaO2% (BldA) [Mass fraction] 98 % Mara Praisler-Wood ANCIENT ART CURATOR.[facility] Work Phone: [facility] 01-28-2024 07:31-0400 Systolic blood pressure 122 mm[Hg] Mara Praisler-Wood ANCIENT ART CURATOR.[facility] Work Phone: [facility] 11-11-2022 16:43-0500 Heart rate 68 /min [facility] Work Phone: 11-11-2022 16:43-0500 Respiratory rate 17 /min [facility] Work Phone: 11-11-2022 16:43-0500 SaO2% (BldA) [Mass fraction] 99 % [facility] Work Phone: 11-11-2022 15:29-0500 Body height 182.88 cm [facility] Work Phone: 11-11-2022 15:29-0500 Body mass index (BMI) [Ratio] 22.4 kg/m2 [facility] Work Phone: 11-11-2022 15:29-0500 Body temperature 98 [degF] [facility] Work Phone: 11-11-2022 15:29-0500 Body weight 74.84 kg [facility] Work Phone: 11-11-2022 15:29-0500 Diastolic blood pressure 70 mm[Hg] [facility] Work Phone: 11-11-2022 15:29-0500 Systolic blood pressure 134 mm[Hg] [facility] Work Phone: 05-22-2022 16:12-0400 Body height 182.9 cm Dereck Cano PA-C Work Phone: [facility] 05-22-2022 16:12-0400 Body temperature 99.39 [degF] Dereck Cano PA-C Work Phone: [facility] 05-22-2022 16:12-0400 Body weight 70.31 kg Dereck Cano PA-C Work Phone: [facility] 05-22-2022 16:12-0400 Diastolic blood pressure 86 mm[Hg] Dereck Cano PA-C Work Phone: [facility] 05-22-2022 16:12-0400 Heart rate 78 /min Dereck Cano PA-C Work Phone: [facility] 05-22-2022 16:12-0400 Respiratory rate 12 /min Dereck Cano PA-C Work Phone: [facility] 05-22-2022 16:12-0400 SaO2% (BldA) [Mass fraction] 100 % Dereck Cano PA-C Work Phone: [facility] 05-22-2022 16:12-0400 Systolic blood pressure 136 mm[Hg] Dereck Cano PA-C Work Phone: [facility] Encounters Encounter Date Encounter Type Care Provider Facility Start: 05-04-2025 End: 05-04-[address] Tammy Fowler MD Work Phone: -Emergency Department Start: 05-04-2025 End: 05-04-[address] Lee Gentile MD -Emergency Department Work Phone: Start: 05-04-2025 End: 05-04-2025 ambulatory Lee Gentile Facility:[facility] Start: 05-01-2025 End: 05-01-2025 Emergency department patient visit Dr. Tammy Fowler MD Work Phone: -Emergency Department Work Phone: Start: 03-26-2025 End: 03-26-2025 Patient encounter procedure Linsey Vaughn VALUE ENGINEER-C -Radiology [facility] Work Phone: Start: 03-26-2025 End: 03-26-[address] Tammy Fowler MD Work Phone: [facility] Work Phone: Start: 03-26-2025 End: 03-26-2025 ambulatory Tammy Janeth Facility:[facility] Start: 01-07-2025 End: 01-07-2025 Office outpatient visit 15 minutes Cinda Caldera ANCIENT ART CURATOR.BOBCAT OPERATOR Work Phone: [facility] Comment on above: Elevated blood press ure reading without diagnosis of hypertension (Primary Dx); Screening for depression; Encounter for screening examination for other mental health and behavioral disorders; ADHD (attention deficit hyperactivity disorder), predominantly hyperactive impulsive type Start: 01-07-2025 End: 01-07-2025 ambulatory CINDA A SUPPAN Facility:[facility] Start: 07-16-2024 End: 07-16-2024 Telephone encounter Cinda Caldera ANCIENT ART CURATOR.BOBCAT OPERATOR Work Phone: [facility] Comment on above: Rx updated, but not sent to pharmacy Start: 06-11-2024 End: 06-11-2024 Office outpatient visit 15 minutes Cinda Heather Caldera ANCIENT ART CURATOR.BOBCAT OPERATOR Work Phone: [facility] Comment on above: Anxiety with depress ion (Primary Dx); Irritability Start: 06-11-2024 End: 06-11-2024 ambulatory CINDA A SUPPAN Facility:[facility] Start: 03-09-2024 Telephone encounter Cinda Heather Caldera ANCIENT ART CURATOR.MEDICARE COORDINATOR Work Phone: [facility] Comment on above: Results Start: 02-28-2024 End: 02-28-2024 Office outpatient visit 15 minutes Cinda A Suppan ANCIENT ART CURATOR.MEDICARE COORDINATOR Work Phone: [facility] Comment on above: Irritability (Primar y Dx); Anxiety with depression Start: 01-28-2024 End: 01-28-2024 Patient encounter procedure Mara Felder APRN.CNP Work Phone: [facility] Comment on above: Sinobronchitis (Prim kayy Dx); Middle ear effusion, left Start: 11-11-2022 End: 11-11-2022 Emergency department patient visit [facility]-Emergency Department Start: 07-31-2022 Telephone encounter Dereck law [...] Adult depression scr eening assessment Cinda Caldera APRN.CNP Work Phone: Start: 11-11-2022 Diagnostic radiograp hy of finger Start: 07-20-2019 Adult depression scr eening assessment Dereck Cano PA-C Work Phone: Plan of Treatment Date Care Activity Detail Author Start: 01-07-2026 Anxiety Screening Anxiety Screening [facility] Start: 01-07-2026 Depression Screening Depression Scre ening [facility] Start: 05-03-2025 Influenza vaccination Influenz a Vaccine (#1) [facility] Comment on above: Postponed from 07/05 (Declined at this time) Start: 05-01-2025 [facility] Start: 02-18-2025 End: 02-18-2025 Patient encounter procedure 02/18/2025 3:00 PM EDT Office Visit [facility] [address] [place] [address] Cinda Caldera APRN.BOBCAT OPERATOR [address] [place] [address] 6 week ADD medication follow up [facility] Comment on above: 6 week ADD medicatio n follow up Start: 07-05-2024 Covid-19 Vaccine () Covid-19 Vaccine () [facility] Start: 07-05-2024 Covid-19 Vaccine () Covid-19 Vaccine () [facility] Start: 07-05-2024 Influenza vaccination C [facility] Start: 02-28-2024 End: 05-29-2024 Cobalamin (Vitamin B12) [Mass/volume] in Serum or Plasma [facility] Comment on above: Expected: 02/28/2024 , Expires: 05/29/2024 Start: 02-28-2024 End: 05-29-2024 Comprehensive metabolic 2000 panel - Serum or Plasma [facility] Work Phone: Comment on above: Expected: 02/28/2024 , Expires: 05/29/2024 Start: 02-28-2024 End: 05-29-2024 LIPID PANEL, NONFASTING [facility] Comment on above: Expected: 02/28/2024 , Expires: 05/29/2024 Start: 02-28-2024 End: 05-29-2024 Magnesium [Mass/volume] in Serum or Plasma [facility] Comment on above: Expected: 02/28/2024 , Expires: 05/29/2024 Start: 02-28-2024 End: 05-29-2024 TESTOSTERONE, FREE AND TOTAL [facility] Comment on above: Expected: 02/28/2024 , Expires: 05/29/2024 Start: 02-28-2024 End: 05-29-2024 Thyrotropin [Units/volume] in Serum or Plasma [facility] Comment on above: Expected: 02/28/2024 , Expires: 05/29/2024 Start: 11-04-2023 Behavioral Health Screening Behavioral Health Screening [facility] Start: 11-04-2023 Depression Assessment Depression Ass essment [facility] Start: 07-05-2023 Covid-19 Vaccine () Covid-19 Vaccine () [facility] Start: 07-05-2023 Influenza vaccination Influenz a Vaccine (#1) [facility] Start: 07-05-2022 Influenza vaccination INFLUENZA (#1) [facility] Start: 11-04-2021 DEPRESSION ASSESSMENT DEPRESSION ASS ESSMENT [facility] Start: 07-20-2020 Adult depression screening assessment DEPRESSION SCREENING [facility] Start: 05-23-2017 Urine microalbumin profile [facility] Start: 2011 Anxiety Screening Anxiety Screening [facility] Start: 2011 Depression Screening Depression Scre ening [facility] Start: 2011 HEPATITIS C SCREENING HEPATITIS C [facility] Start: 2011 Hepatitis C screening Hepatitis C [facility] Start: 2011 HIV SCREENING HIV SCREENING [facility] Start: 2011 HIV screening HIV Screening [facility] Start: 06-17-1994 COVID-19 VACCINE (#1) COVID-19 VACCI NE (#1) [facility] Patient Education [facility] Work Phone: Patient referral [facility] Work Phone: Vasectomy uni/bi spx w/postop semen exams VASECTOMY Procedures Routine Vasectomy evaluation Ordered: 05/22/2022 [facility] Work Phone: Comment on above: Ordered: 05/22/2022 [facility] Immunizations Immunization Date Immunization Notes Care Provider Fa [facility] 05-04-2025 rabies vaccine, for intramuscular injection Dr. Tammy Fowler MD Work Phone: [facility] 05-01-[address] Meghana Fowler MD Work Phone: [facility] 05-01-2025 rabies vaccine, for intramuscular injection Dr. Tammy Fowler MD Work Phone: [facility] 05-27-2008 varicella virus vaccine Tony Cano PA-C Work Phone: [facility] Work Phone: 05-23-2007 Meningococcal, MCV4, unspecified conjugate formulation(groups A, C, Y and W-135) Dereck Cano PA-C Work Phone: [facility] Work Phone: 05-23-2007 tetanus toxoid, redu shana diphtheria toxoid, and acellular pertussis vaccine, adsorbed Dereck Cano PA-C Work Phone: [facility] Work Phone: 09-16-2003 influenza virus vaccine, unspecified formulation Dereck Cano PA-C Work Phone: [facility] 09-28-2002 influenza virus vaccine, unspecified formulation Dereck Cano PA-C Work Phone: [facility] 03-15-1999 diphtheria, tetanus toxoids and acellular pertussis vaccine Dereck Cano PA-C Work Phone: [facility] 03-15-1999 measles, mumps and rubella virus vaccine Dereck Cano PA-C Work Phone: [facility] 03-15-1999 poliovirus vaccine, inactivated Dereck Cano PA-C Work Phone: [facility] 10-18-1997 varicella virus vaccine Bran don Cano PA-C Work Phone: [facility] 01-23-1995 hepatitis B vaccine, pediatric or pediatric/adolescent dosage Dereck Cano PA-C Work Phone: [facility] 12-26-1994 diphtheria, tetanus toxoids and acellular pertussis vaccine Dereck Cano PA-C Work Phone: [facility] 12-26-1994 haemophilus influenz ae type b vaccine, conjugate unspecified formulation Cinda Suppjj ANCIENT ART CURATOR.MEDICARE COORDINATOR Work Phone: [facility] 12-26-1994 hepatitis B vaccine, pediatric or pediatric/adolescent dosage Cinda Suppjj ANCIENT ART CURATOR.MEDICARE COORDINATOR Work Phone: [facility] 12-26-1994 measles, mumps and rubella virus vaccine Dereck Cano PA-C Work Phone: [facility] 06-06-1994 diphtheria, tetanus toxoids and acellular pertussis vaccine Dereck Cano PA-C Work Phone: [facility] 06-06-1994 haemophilus influenz ae type b vaccine, conjugate unspecified formulation Cinda Suppan ANCIENT ART CURATOR.MEDICARE COORDINATOR Work Phone: [facility] 06-06-1994 poliovirus vaccine, inactivated Dereck Cano PA-C Work Phone: [facility] 04-12-1994 diphtheria, tetanus toxoids and acellular pertussis vaccine Dereck Cano PA-C Work Phone: [facility] 04-12-1994 haemophilus influenz ae type b vaccine, conjugate unspecified formulation Cinda Suppan ANCIENT ART CURATOR.MEDICARE COORDINATOR Work Phone: [facility] 04-12-1994 poliovirus vaccine, inactivated Dereck Cano PA-C Work Phone: [facility] 02-15-1994 diphtheria, tetanus toxoids and acellular pertussis vaccine Dereck Cano PA-C Work Phone: [facility] 02-15-1994 haemophilus influenz ae type b vaccine, conjugate unspecified formulation Cinda Suppan ANCIENT ART CURATOR.MEDICARE COORDINATOR Work Phone: [facility] 02-15-1994 poliovirus vaccine, inactivated Dereck Cano PA-C Work Phone: [facility] 01-17-1994 hepatitis B vaccine, pediatric or pediatric/adolescent dosage Dereck Cano PA-C Work Phone: [facility] 1995 hepatitis B vaccine, pediatric or pediatric/adolescent dosage Dereck Cano PA-C Work Phone: [facility] Payers Date Payer Category Payer Self-pay [id number] 2021 Private Health Insurance KOFFI MEHTA [id number] 2021-Present [phone] [facility] [id number] [place] [id number] Open Access [id number] 2021 Private Health Insurance [id number] 2021 Private Health Insurance [id number] 1994 Unknown [id number] Unknown [id number] Unknown [id number] Social History Date Type Detail Facility Start: 03-14-2012 End: 05-01-2025 Tobacco smoking status NHIS Never smoked tobacco [facility] Start: 05-22-2022 End: 01-07-2025 Alcohol intake Current drinker of alcohol (finding) [facility] Start: 04-07-2018 History SDOH Alcohol Comment 1-2 beers per month [facility] Start: 1995 Sex Assigned At Not on file C [facility] Start: 05-12-2022 End: 05-22-2022 Exposure to SARS-CoV-2 (event) Not sure [facility] Start: 03-14-2012 End: 01-28-2024 Tobacco use and exposure Smokeless tobacco non-user [facility] Work Phone: Start: 11-11-2022 Tobacco smoking stat us NYIS Unknown if ever smoked [facility] Work Phone: Start: 1995 Sex Assigned At Male W [facility] Start: 01-28-2024 End: 02-28-2024 History of Social function [facility] Start: 01-28-2024 End: 02-28-2024 Tobacco use panel [facility] Adult Depression Screening Assessment 0 [facility] Clinical Notes 09-11-2010 to 05-01-2025 Note Date & Type Note Facility 05-01-2025 Discharge summary [facility] 05-01-2025 Discharge summary Note Date/Time May 01, 2025 8:16pm [facility] Medical Records Department [address] [place] [address] Emergency Department Summary 05/01/25 MR#: [id number] Acct: [id number] Name: DENTON JOLLEY Rep #:[id number] : 1995 29 From: Lee Gentile MD PCP: Dr. Tammy Fowler MD Status:REG E R Location: ED HPI History of Present Illness Chief Complaint: Bite Detail of Chief Complaint: Bitten by feral cat left long finger Informant: patient and spouse/S.O. Onset/Context/Timing Onset: Hours Location of pain/injuries: Left hand (Long finger over the middle phalanx dorsalsurface) Current Severity: Gone Maximum Severity: Mild Worsened by: Bite Relieved by: Not applicable Associated Symptoms Associated Symptoms: Negative for Parasthesias, Weakness, Loss of function, Inability to ambulate, Loss of consciousness or Amnesia Narrative Narrative: Patient is a healthy 29-year-old male. He presents because of cat bite. It wasa feral cat. Cat is not acting appropriately. He has no allergy to antibiotics. He denies paresthesia, anesthesia Medicus. Prior similar symptoms: No Recent Illness/Hospitalization: No PFSH PFSH Home Medications ?Medication ?Instructions ?Recorded ?Last Taken ?Type naproxen 500 mg tablet 500 mg PO BID PRN #20 tabs 1 12/14/15 Unknown Rx cephalexin 500 mg capsule 500 mg PO Q6 #40 caps Unknown Rx amoxicillin 875 mg-potassium 875 mg PO Q12H #6 TABLETS 05/01/25 Unknown Rx clavulanate 125 mg tablet Allergy/AdvReac Type Severity Reaction Status Date / Time No Known Allergies Allergy Verified 05/01/25 19:11 Family History no significant family his Surgical History (Updated 05/01/25 @ 19:26 by Dejon Hernandez) History of tonsillectomy Social History (Updated 05/01/25 @ 19:[address] Lee Gentile MD) household members: spouse and children housing: house Smoking Status: Never smoker ROS ROS ED Constitutional Constitutional ED: Denies chills, fever(s) or subjective Musculoskeletal Musculoskeletal: Reports other Details: Negative joint pain. Integumentary Reports other Details: Cat bite dorsal surface left long finger Neurologic Neurologic: Denies paresthesias or weakness Hematologic/Lymphatic Hematologic/Lymphatic: Denies easy bleeding or easy bruising EXAM Physical Exam Const Vital Signs: 05/01/25 19:09 Temperature 97.9 F Temperature Source Temporal Pulse Rate 75 Respiratory Rate 14 Blood Pressure 131/77 H Blood Pressure Mean 95 Pulse Ox 100 Oxygen Delivery Method Room Air Positive well nourished and well developed General Appearance ED: well developed and NAD HEENT HEENT Narrative: Head is normocephalic. There is no gross abnormality. atraumatic Eyes PERRL and EOMs intact bilaterally General Eye ED: Yes other Other Details: No scleral icterus. Neck full ROM Resp normal respiratory effort Cardio regular rhythm and S1 normal heart sound Extremity Negative for normal to inspection Extremity Narrative: Cat bite dorsal surface of left long finger. There is no tenderness over the extensor commonness tendon. There is no evidence of infection. Median, radial and ulnar function intact. Capillary refill is normal. Sensation is normal. Neuro oriented x3 and CN's II-XII intact bilaterally Psych mental status grossly normal and thought process normal Skin Skin Narrative: Cat bite previously described PROC Procedures Other Procedures Procedure(s): Injection of rabies immunoglobulin by me radial and ulnar side of the left long finger in the webspace MDM MDM MDM Narrative Medical decision making narrative: Since it is a feral cat and the cat was not acting appropriately. informing that this gait was abnormal. Will treat with Augmentin for cat bite and he will receive rabies vaccine and immunoglobulin. The immunoglobulin was administered by me. Discharge Plan Triage Chief Complaint: Bite ED Provider: Lee Gentile Dx/Rx/DC Orders Clinical Impression: Cat bite of middle finger, Encounter for prophylactic rabies immune globin, Need for prophylactic vaccination and inoculation against rabies Instructions: ED Cat Bite Prescriptions: New amoxicillin-pot clavulanate 875-125 mg tablet 875 mg PO Q12H Qty: 6 0RF No Action naproxen 500 MG tablet 500 mg PO BID PRN Qty: 20 0RF cephalexin [cephalexin] 500 mg capsule 500 mg PO Q6 Qty: 40 0RF Primary Care Provider: Tammy Fowler Referrals: Tammy Fowler MD [Primary Care Provider] - 2 Days for wound check Print Language: Hungarian Disposition Disposition: Home, Self Care What to do if you have Problems For any increased pain, shortness of breath, bleeding, nausea or vomiting, chestpain, or any unexpected problems, contact your Primary Care Provider. Call [facility] ([phone]) or report to the closest Emergency Room. Call 911 if necessary. 05/01/252015 <Electronically signed by Lee Gentile MD> Cosigner Signature (if applicable): CC: Dr. Tammy Fowler MD ~ Signed [facility] Work Phone: 1(758) 567-260205-23-2025 NoteHNO ID: [id number] Author: LINSEY VAUGHN APRN.BOBCAT OPERATOR Service: ? Author Type: Nurse Practitioner Type: Progress Notes Filed: 03/26/2025 09:23 Note Text: [facility] Subjective Denton Jolley is a 29 [...] or do not improve. and Recording using [employer] Education software for draft documentation of the visit was discussed with the patient/authorized equal opportunity representative; all questions welcomed and answered. Patient/authorized equal opportunity representative agreed to proceed [facility] Diagnostic study note [facility] Imaging Services [address] [place] [address] Chest PA and Lateral MR#: [id number] Acct: [id number] Name: DENTON JOLLEY Rep #: [id number] : 1995 M 29 From: Francisco Osborn MD PCP: Dr. Tammy Fowler MD Status: REG C LI Study:Chest PA and Lateral Date of Exam: 03/26/25 Exam# [id number] Ordering Dr: Do zeynep Vaughn PROCEDURE: CHEST PA AND LATERAL 03/26/2025 REASON FOR EXAM: COUGH TECHNIQUE: Frontal and lateral views of the chest. COMPARISON: None FINDINGS: Hardware: None Heart: The heart size is normal. Mediastinum: The mediastinal contour is unremarkable. Lungs: The lungs are clear. Bones: The bones are unremarkable. RAD/Chest PA and Lateral IMPRESSION: NEGATIVE CHEST Reading Location: [place] [address] CC: SUSU Vaughn; Dr. Tammy Fowler MD ~ Business Information Consultant: Signed [facility]03-06-2025 Instructions* Patient Instructions* Cinda Caldera APRN.CNP - 01/07/2025 4:50 PM EST 1) Strattera 40 mg daily 2) DME- BP cuff sent to [employer] [facility] store 3) Send me 3 BP readings in 1 or 2 weeks [facility] NoteHNO ID: [id number] Author: CINDA CALDERA APRN.[facility] Service: ? Author Type: Nurse Practitioner Type: Progress Notes Filed: 01/07/2025 16:52 Note Text: This is a 29 year old male who presents today with: Patient presents with: ADD/ADHD HISTORY OF PRESENT ILLNESS: Denton Jolley is a 29 year old male. Patient presents with: ADD/ADHD [place] like fluoxetine just numbed him out. Behavior [...] as needed for worsening/no improvement. Cinda Caldera APRN.[facility] [facility] History of Present illness Narrative* Cinda Caldera APRN.BOBCAT OPERATOR - 01/07/2025 4:21 PM EST This is a 29 year old male who presents today with: Patient presents with: ADD/ADHD HISTORY OF PRESENT ILLNESS: Denton Jolley is a 29 year old male. Patient presents with: ADD/ADHD [place] like fluoxetine just numbed him out. Behavior [...] Pt taking monthly or when having a flareup) multivitamin tablet Take 1 tablet by mouth [...] improvement. Cinda Caldera APRN.BISHOP [facility] Telephone encounter Note * Telephone Encounter - Ej Faria MA - 07/16/2024 4:32 PM EDT Called and left generic message on VM that Rx has been sent to Pharmacy as requested. If questions to contact office and speak with Triage Nurse. Ej Faria MA [facility]09-12-2024 Miscellaneous Notes* Telephone Encounter - Ej Faria MA - 07/16/2024 4:32 PM EDT Called and left generic message on VM that Rx has been sent to Pharmacy as requested. If questions to contact office and speak with Triage Nurse. Ej Faria MA * Telephone Encounter - Tammy Fowler MD - 07/16/2024 4:20 PM EDT Sorry sent * Telephone Encounter - Yoselin Dietrich - 07/16/2024 3:54 PM EDT Patient said he was told his rx fluoxetine 40 mg was sent to [facility]. It was updated in chart, but not sent. He would like a call back at [phone] when sent. documented in [facility] encounterHigh[facility]09-[facility]24 Telephone encounter Note * Telephone Encounter - Tammy Fowler MD - 07/16/2024 4:20 PM EDT Sorry sent [facility] Telephone encounter Note* Telephone Encounter - Yoselin Dietrich - 07/16/2024 3:54 PM EDT Patient said he was told his rx fluoxetine 40 mg was sent to [facility]. It was updated in chart, but not sent. He would like a call back at [phone] when sent. [facility] Telephone encounter Note* Telephone Encounter - Lori Wilkes MA - 07/16/2024 3:08 PM EDT Spoke with pt and advised needed a one moth medication follow up. He will call back when he knows his 's schedule. Lori Wilkes MA [facility]09-12-2024 Miscellaneous Notes* Telephone Encounter - Lori Wilkes MA - 07/16/2024 3:08 PM EDT Spoke with pt and advised needed a one moth medication follow up. He will call back when he knows his 's schedule. Lori Wilkes MA * Telephone Encounter - Tammy Fowler MD - 07/16/2024 2:34 PM EDT Rx sent. Please schedule follow up with one of us * Telephone Encounter - Vanessa Soria LPN - 07/16/2024 2:26 PM EDT Patient is wanting to increase to Fluoxetine to 40mg, feels he has leveled out, not really effects anymore. Asking for new RX to go to [facility]. Denton took his last pill this AM, asking if RX could go today, Patient will check with pharmacy later. Vanessa Soria LPN documented in this encounterHigh[facility]09-12-2024 Telephone encounter Note * Telephone Encounter - Tammy Fowler MD - 07/16/2024 2:34 PM EDT Rx sent. Please schedule follow up with one of us [facility] Telephone encounter Note* Telephone Encounter - Vanessa Soria LPN - 07/16/2024 2:26 PM EDT Patient is wanting to increase to Fluoxetine to 40mg, feels he has leveled out, not really effects anymore. Asking for new RX to go to [facility]. Denton took his last pill this AM, asking if RX could go today, Patient will check with pharmacy later. Vanessa Soria LPN [facility]08-08-[facility]24 Instructions* Patient Instructions* Cinda Caldera APRN.BOBCAT OPERATOR - 06/11/2024 3:57 PM EDT 1) Increase fluoxetine to 20 mg daily 2) Follow up in 3 months documented in this encounterHigh[facility]08-08-2024 NoteHNO ID: [id number] Author: CINDA CALDERA APRN.CNP Service: ? Author [...] eczema Comment: 2020 No date: Depression 06/27/2001: PM - PAST MEDICAL HISTORY OF Comment: normal [...] as needed for worsening/no improvement. Cinda Caldera APRN.[facility]08-08-2024 History of Present illness Narrative* Cinda Caldera APRN.[facility] - 06/11/2024 3:47 PM EDT This is a 28 year old male [...] eczema Comment: 2020 No date: Depression 06/27/2001: [facility] - PAST MEDICAL HISTORY OF Comment: normal [...] as needed for worsening/no improvement. Cinda Caldera APRN.BOBCAT OPERATOR documented in this encounterHigh[facility] Hospital05-08-2024 Telephone encounter Note * Telephone Encounter - Whit Bradford LPN - 03/11/2024 11:49 AM EDT Patient did review this lab on Mychart. [facility] Miscellaneous Notes* Telephone Encounter - Whit Bradford LPN - 03/11/2024 11:49 AM EDT Patient did review this lab on Mychart. * Telephone Encounter - Kristin Correa OCCA - 03/09/2024 1:57 PM EDT TC no answer. Left VM to return call. EVELIO Jimenes * Telephone Encounter - Cinda Caldera APRN.CNS - 03/09/2024 1:40 PM EDT Please let patient know that his testosterone levels came back and they are completely normal. No further labs needed. He is in high normal range. All other labs were also normal. documented in this encounterHigh[facility] Hospital05-06-2024 Telephone encounter Note * Telephone Encounter - Kristin Correa OCCA - 03/09/2024 1:57 PM EDT TC no answer. Left VM to return call. EVELIO Jimenes [facility]05-06-2024 Telephone encounter Note* Telephone Encounter - Cinda Caldera APRN.CNS - 03/09/2024 1:40 PM EDT Please let patient know that his testosterone levels came back and they are completely normal. No further labs needed. He is in high normal range. All other labs were also normal. [facility]04-26[facility] Instructions* Patient Instructions* Cinda Caldera APRN.CNS - 02/28/2024 4:52 PM EDT 1) Get labs 2) Start prozac 10 mg daily 3) Keep notes on irritability 4) follow up in 2 months documented in this encounterHigh[facility] Hospital04-26-2024 History of Present illness Narrative* Cinda Caldera APRN.CNS - 02/28/2024 4:28 PM EDT This is a 28 year old male [...] Impatient Mood swings Quick temper Works at [employer] for 6 years, worked previous job for [...] as needed for worsening/no improvement. Cinda Caldera APRN.CNS The patient indicates understanding of these issues and agrees with the plan. documented in this encounterHigh[facility] Hospital03-26-2024 History of Present illness Narrative* Mara Felder APRN.BOBCAT OPERATOR - 01/28/2024 7:42 AM EDT Subjective Cough Associated symptoms include ear pain [...] Discussed expected course of illness Mara Felder APRN.BOBCAT OPERATOR documented in this encounterHigh[facility] Hospital03-26-2024 Instructions* Patient Instructions* Mara Felder APRN.BISHOP - 01/28/2024 7:41 AM [...] Discussed expected course of illness Mara Felder APRN.BOBCAT OPERATOR ACUTE BRONCHITIS: You have acute bronchitis. This [...] days of proper treatment. documented in this encounterHigh[facility] Hospital09-28-2022 Miscellaneous Notes* Telephone Encounter - Lucero Santizo LPN - 08/01/2022 8:51 AM EDT Called patient. Verified name and date of . Informed of order and verbalizes understanding. Lucero Santizo LPN * Telephone Encounter - Giulia Laughlin - 07/31/2022 12:51 PM EDT Pt scheduled for vasectomy on Saturday and is asking for pre-medication pill to take prior to procedure. 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 Dia Hooper. We are to call him to let him know once this has been sent over. Giulia Laughlin documented in this encounterHighland [facility] Hospital07-19-2022 History of Present illness Narrative* Dereck Cano PA-C - 05/22/2022 4:24 PM EDT Denton Jolley May 22, 2022 Referred by: Self CC: Desires permanent sterilization HPI: 26 year old male states he desire permanent surgical sterilization. Reports fathering 3 children and expressly states he does not desire to father children in the future. Genitourinary history: Hx undescended testis: No Hx stone disease: No Hx UTI/prostatitis/epididimitis/STI: No Sexual frequency/libido: No Urinary sx: No [...] mouth once daily. (Patient not taking: Reported on07/17/2021 ) No current facility-administered medications for this [...] 70.3 kg (155 lb) SpO2 100% BMI 21.02kg/m General: Well appearing, alert, in no acute [...] attests that he watched and understood the [facility] Vasectomy video and read and understood the [...] the return of sperm into the ejaculate aftervasectomy c) Patient must use alternative form of control until he is notified that his postprocedure semen analysis contained no sperm. Consultation requested by Self for an opinion regarding vasectomy and my final recommendations willbe communicated back to the requesting physician by way of shared Medical record or letter via US mail. Visit duration 30 minutes with approximately 50% of time in counseling AMARI Sherman, BRITTANIE PHILLIPS documented [place] encounterTam[place] [address]-08[place]2010 History of Past illness Narrative* Problem Noted Date Resolved Date Painful respiration 09/11/2010 04/07/2018 documented as of this encounter (statuses as of 05/22/2022) [address]08-2010 History of Past illness Narrative* Problem Noted Date Resolved Date Painful respiration 09/11/2010 04/07/2018 documented as of this encounter (statuses as of 08/01/2022) [place] [address]08-2010 History of Past illness Narrative* Problem Noted Date Diagnosed Date Resolved Date Painful respiration 09/11/2010 04/07/20 18 documented as of this encounter (statuses as of 01/28/2024) [facility] Diagnosis Vasectomy evaluation- Primary Other general counseling and advice for contraceptive management documented [facility] this encounter [facility]* Diagnosis Vasectomy evaluation- Primary Other general counseling and advice for contraceptive management documented in this encounter [facility] noteNo assessment information availableWThe [facility] Work Phone: Evaluation note* Diagnosis Sinobronchitis- Primary Unspecified sinusitis (chronic) Middle ear effusion, left documented in this encounter [facility]* Diagnosis Anxiety with depression- Primary Irritability documented in this encounter [facility]* Diagnosis Anxiety with depression Irritability [facility] this [facility]* Diagnosis Anxiety with depression Irritability documented in this encounter [facility]* Diagnosis Irritability- Primary Anxiety with depression documented in this encounter [facility] note* Diagnosis Elevated blood pressure reading without diagnosis of hypertension- Primary Screening for depression Encounter for screening examination for other mental health and behavioral disorders ADHD (attention deficit hyperactivity disorder), predominantly hyperactive impulsive type Attention deficit disorder with hyperactivity documented in this encounter [facility] for referral (narrative)No reason for referral information availableWThe [facility] Work Phone: Summary Purpose Family History No Family History Records FoundNo Family History Records FoundNo Family History Records Found Advance Directives No Advanced Directives Records FoundDocuments on File Type Date Recorded 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 No May 01, 2025 7:28pm Advance Directives No January 11 021 10:47am Chief Complaint and Reason for Visit Chief Complaint left thumb injury Chief Complaint Admit Date STAT ORDER/FAX RESULTS [phone] March 26, 2025 7:56am Chief Complaint Admit Date STAT ORDER/FAX RESULTS [phone] March 26, 2025 7:56am bite May 01, 2025 7:08 pm Chief Complaint Admit Date STAT ORDER/FAX RESULTS [phone] March 26, 2025 7:56am bite May 01, 2025 7:08 pm meds only May 04, 2025 5:49p m Additional Source Comments (unrecognized sect ion and content) No Status Records FoundNo Status Records FoundNo Status Records Found INFORMATION SOURCE (unrecogn ized section and content) DATE CREATED AUTHOR 07/23/2020 [facility] DATE CREATED AUTHOR AUTHOR'S ORGANIZ ATION 04/01/2025 [facility] DATE CREATED AUTHOR AUTHOR'S ORGANKM ATION 05/06/2025 [facility] Source Comments (unrecognize d section and content) In the event this informatio n is protected by the Federal Confidentiality of Alcohol and Drug Abuse Patient Records regulations: The Federal rules restrict any use of the information to criminally investigate or prosecute any alcohol or drug abuse patient.[facility] HospitalIn the event this information is protected by the Federal Confidentiality of Alcohol and Drug Abuse Patient Records regulations: The Federal rules restrict any use of the information to criminally investigate or prosecute any alcohol or drug abuse patient.[facility] HospitalIn the event this information is protected by the Federal Confidentiality of Alcohol and Drug Abuse Patient Records regulations: The Federal rules restrict any use of the information to criminally investigate or prosecute any alcohol or drug abuse patient.[facility] HospitalIn the event this information is protected by the Federal Confidentiality of Alcohol and Drug Abuse Patient Records regulations: The Federal rules restrict any use of the information to criminally investigate or prosecute any alcohol or drug abuse patient.[facility] HospitalIn the event this information is protected by the Federal Confidentiality of Alcohol and Drug Abuse Patient Records regulations: The Federal rules restrict any use of the information to criminally investigate or prosecute any alcohol or drug abuse patient.[facility] HospitalIn the event this information is protected by the Federal Confidentiality of Alcohol and Drug Abuse Patient Records regulations: The Federal rules restrict any use of the information to criminally investigate or prosecute any alcohol or drug abuse patient.[facility] HospitalIn the event this information is protected by the Federal Confidentiality of Alcohol and Drug Abuse Patient Records regulations: The Federal rules restrict any use of the information to criminally investigate or prosecute any alcohol or drug abuse patient.[facility] HospitalIn the event this information is protected by the Federal Confidentiality of Alcohol and Drug Abuse Patient Records regulations: The Federal rules restrict any use of the information to criminally investigate or prosecute any alcohol or drug abuse patient.[facility] HospitalIn the event this information is protected by the Federal Confidentiality of Alcohol and Drug Abuse Patient Records regulations: The Federal rules restrict any use of the information to criminally investigate or prosecute any alcohol or drug abuse patient.[facility] Reason for Visit (unrecogniz ed section and content) Reason Comments Vasectomy-1 Reason Comments Orders Reason Comments Cough Cough, ST and ADAMS x 5 days Reason Comments Results Reason Comments Follow Up Reason Comments Rx updated, but not sent to pharmacy Reason Comments ADD/ADHD Care Teams (unrecognized sec tion and content) Tack Driller Relationship Specialty Start Date End Date Tammy Fowler MD [address] [place], [place] [id number] PCP - General Family Practice 10/04/16 Tack Driller Relationship Specialty Start Date End Date Tammy Fowler MD [address] [place], [place] [id number] PCP - General Family Medicine 10/04/16 Tack Driller Relationship Specialty Start Date End Date Tammy Fowler MD [address] [place], [place] [id number] PCP - General Family Medicine 10/04/16 Tack Driller Relationship Specialty Start Date End Date Tammy Fowler MD [address] [place], [place] [id number] PCP - General Family Medicine 10/04/16 Tack Driller Relationship Specialty Start Date End Date Tammy Fowler MD [address] [place], [place] [id number] PCP - General Family Medicine 10/04/16 Tack Driller Relationship Specialty Start Date End Date Tammy Fowler MD [address] [place], [place] [id number] PCP - General Family Medicine 10/04/16 Tack Driller Relationship Specialty Start Date End Date Tammy Fowler MD [address] [place], [place] [id number] PCP - General Family Medicine 10/04/16 Tack Driller Relationship Specialty Start Date End Date Tammy Fowler MD [address] [place], [place] [id number] PCP - General Family Medicine 10/04/16 Sybil Haley APRN.BOBCAT OPERATOR [address] [place], [place] [id number] Grout Worker Family Medicine 10/12/24 Cinda Caldera APRN.BOBCAT OPERATOR [address] [place], [place] [id number] Grout Worker Family Medicine 10/12/24 Team Status: Active Member Role Status [...] March 26, 2025 End: March 26, 2025 Team Status: Active Member Role/Relationship Status Dates Dr. Tammy Fowler MD Primary Care Provider Active Team Status: Inactive Member Role/Relationship Status Dates Dr. Tammy Fowler MD Primary Care Provider Active Start: March 26, 2025 End: March 26, 2025 SUSU Ferris Attending Provider Active Start: March 26, 2025 End: March 26, 2025 SUSU Ferris Referring Provider Active Start: March 26, 2025 End: March 26, 2025 Team Status: Inactive Member Role/Relationship Status Dates Dr. Tammy Fowler MD Primary Care Provider Active Start: May 01, 2025 End: May 01, 2025 Dr. Lee Gentile MD Emergency Provider Active Sta rt: May 01, 2025 End: May 01, 2025 Team Status: Inactive Member Role/Relationship Status Dates Dr. Tammy Fowler MD Primary Care Provider Active Start: May 04, 2025 End: May 04, 2025 Dr. Lee Gentile MD Attending Provider Active Sta rt: May 04, 2025 End: May 04, 2025 Goals (unrecognized section and content) Goals may be documented in a n alternate sectionGoals may be documented in an alternate sectionGoals may be documented in an alternate sectionGoals may be documented in an [...] BE BASED ON THE PRIMARY CLINICAL RECORDS. [employer] provides no warranty or guarantee of the accuracy or completeness of information in this document.
--- OUTSIDE RECORDS SUMMARY | 2025-05-09 17:13 | XMS RPT_ITS | CCD ---
Author Organization [facility] Care Team Providers Care Congressional Representative Name Role Phone Tammy Fowler MD Primary Care Provider Tammy Fowler MD Primary Care Provider Tera BELT LACER.DIRECTOR BLOOD BANKSybil Unavailable Werner BELT LACER.Cinda ALAS Unavailable Dr. Tammy Fowler MD Primary Care Provider Linsey Clemens Attending Provider Linsey Clemens Referring Provider LINSEY VAUGHN Referring Unavailable TAMMY FOWLER Primary Care Unavailable TAMMY FOWLER Primary Care Unavailable LINSEY VAUGHN Attending Unavailable CINDA CALDERA Attending Unavailable TAMMY FOWLER Primary Care Unavailable CINDA CALDERA Attending Unavailable TAMMY FOWLER Primary Care Unavailable Dr. Lee Gentile MD Emergency Provider [phone] Lee Gentile MD Attending Provider Tammy Fowler Primary Care Unavailable Linsey Vaughn Attending Unavailable Linsey Vaughn Referring Unavailable Lee Gentile Attending Unavailable Tammy Fowler Primary Care Unavailable Lee Gentile Attending Unavailable Tammy Fowler Primary Care Unavailable Dr. Lee Gentile MD Attending Provider [phone] Medications Current Medications Medication Drug Class(es) Dates Sig (Normalized) Sig (Original) amoxicillin 875 mg / clavulanate 125 mg oral tablet (3 sources) Penicillin-class Antibacterial Start: 05-01-2025 take 1 [...] 02/06/2025 Active cephalexin 500 mg oral capsule (5 sources) Cephalosporin Antibacterial Start: 11-11-2022 take 1 [...] on above: Take 1 capsule by mo [facility] two times a day for 7 days. [...] once daily. naproxen 500 mg oral tablet (5 sources) Nonsteroidal Anti-inflammatory Drug Start: 12-10-20 16 take 1 tablet by mouth twice [...] on above: Take 2 tablets by mo ut once daily for 4 days. Take daily [...] Onset: 01-07-2025 Chronic Contraceptive and procreative management (7 sources) Patient encounter status; Translations: [Encounter for other general counseling and advice on contraception] Episodic E Codes: Cut/pierceb (5 sources) Accidents caused by cutting and piercing instruments or objects ; Translations: [Contact with other powered hand tools and household machinery, initial encounter] 11-19-2022 Episodic Headache; including migraine (5 sources) Headache; Translations: [Headache] 04-27-2021 Episodic Immunizations and screening for infectious disease (4 sources) Requires rabies vaccination course; Translations: [Encounter for immunization] Onset: 05-06-2025 05-01-2025 Episodic Open wounds of extremities (9 sources) Puncture wound of thumb of left hand; Translations: [Puncture wound without foreign body of left thumb without damage to nail, initial encounter] Onset: 05-06-2025 11-19-2022 Episodic Other circulatory disease (5 sources) Nasal discharge; Translations: [Other specified symptoms [...] Onset: 01-07-2025 Episodic Other lower respiratory disease (5 sources) Cough; Translations: [Cough] 03-17-2021 Episodic Other upper respiratory disease (5 sources) Congestion of nasal sinus; Translations: [Nasal congestion] 03-17-2021 Episodic Other upper respiratory infections (1 source) Chronic sinusitis; Translations: [Chronic sinusitis, unspecified] 01-28-2024 Chronic Other upper respiratory infections (5 sources) Sore throat symptom; Translations: [Acute pharyngitis, [...] disorders] Onset: 01-07-2025 Episodic Superficial injury; contusion (5 sources) Contusion of foot; Translations: [Contusion of [...] Results Test Name Value Interpretation Reference Range Facil ity Emergency Department Summary on 05-01-2025 Emergency Department Summary [facility] Medical Records Department [address] [place] [address] Emergency Department Summary 05/01/25 MR#: [id number] Acct: [id number] Name: DENTON JOLLEY Rep #: [id number] : 1995 29 From: Lee Gentile MD [...] Procedures Procedure(s): Injection of rabies immunoglobulin by mo radial and ulnar side of the left [...] 2 Days for wound check Print Language: Romanian Disposition Disposition: Home, Self Care What to do if you have Problems For any increased pain, shortness of breath, bleeding, nausea or vomiting, chest pain, or any unexpected problems, contact your Primary Care Provider. C (more content not included)... Normal [facility] 03-26-2025 [facility] Office Visit (UCWSTR ) DENTON JOLLEY ([id number]) 1995 M Date Time Provider Department 03/26/25 7:30 AM LINSEY VAUGHN [facility] During your visit today, we recorded the following information about you: Temperature Pulse Respiration Blood pressure 97.4 degrees 54/minute 18/minute 133/82 Weight 83.8 kg Linsey Vaughn APRN.[facility] 03/26/2025 9:23 AM Signed [facility] CARE Subjective Denton Jolley is a 29 [...] or do not improve. and Recording using The 3Doodler software for draft documentation of the visit was discussed with the patient/authorized sales representative malt liquors; all questions welcomed and answered. Patient/authorized sales representative malt liquors agreed to proceed MDM Procedures Allergies As of Date: 03/26/2025 (No Known Allergies) Date Reviewed: 03/26/2025 Reviewed by: Latanya Zeng MA - Fully Assessed Reason for Visit: Cough [28] Cmt: Head and chest congestion x3 weeks Primary Visit Diagnosis:Acute cough [R05.1] Other Visit Diagnosis:Rhinosinusi tis [J32.9] Order(s):XR CHEST 2V FRONTAL/LAT [[id number]] Order #: [id number] FUTURE doxycycline (VIBRA-TABS) 100 mg tabletTake 1 [...] Encounter Status:Closed by LINSEY VAUGHN on 03/26/25 [facility] DENT[facility]OL[facility] ([id number]) 1995 M Date Time Provider Department 03/26/25 LINSEY VAUGHN [facility] During your visit today, we recorded the following information about you: Linsey Vaughn APRN.DIRECTOR BLOOD BANK 03/26/2025 9:24 AM Signed Please call let patient know he is negative for chest x-ray. Let patient know I called in doxycycline twice a day for a week for his sinus infection. If his symptoms do not improve follow-up with primary care Linsey Vaughn APRN.DIRECTOR BLOOD BANK 03/26/2025 10:27 AM Signed Called back talked [...] Encounter Status:Closed by LINSEY VAUGHN on 03/26/25 [facility] Chest PA and Lateralon 03-26 Chest PA and Lateral [facility] Imaging Services [address] [place] [id number] Chest PA and Lateral MR#: [id number] Acct: [id number] Name: DENTON JOLLEY Rep #: [id number] : 1995 M 29 From: Tyrel warren MD PCP: Dr. Tammy Fowler MD Status: REG CLI Study: Chest PA and Lateral Date of Exam: 03/26/25 Exam# [id number] Ordering Dr: Linsey Vaughn NP PROCEDURE: CHEST PA AND LATERAL 03/26/2025 REASON FOR EXAM: COUGH TECHNIQUE: Frontal and lateral views of the chest. COMPARISON: None FINDINGS: Hardware: None Heart: The heart size is normal. Mediastinum: The mediastinal contour is unremarkable. Lungs: The lungs are clear. Bones: The bones are unremarkable. RAD/Chest PA and Lateral IMPRESSION: NEGATIVE CHEST Reading Location: [facility] CC: SUSU Vaughn; Dr. Tammy Fowler MD Gluten Settling Tender: Signed [facility] CNOVon 01-07-2025 CNOV Office Visit (FAMPWS ) DENTON JOLLEY ([id number]) 1995 M Date Time Provider Department 01/07/25 4:20 PM CINDA CALDERA During your visit today, we recorded the following information about you: Temperature Pulse Blood pressure Weight 97.8 degrees 68/minute 140/78 85.3 kg Cinda Caldera APRN.DIRECTOR BLOOD BANK 01/07/2025 4:52 PM Signed This is a 29 year old male who presents today with: Patient presents with: ADD/ADHD HISTORY OF PRESENT ILLNESS: Denton Jolley is a 29 year old male. Patient presents with: ADD/ADHD [place] like fluoxetine just numbed him out. Behavior [...] daily 2) DME- BP cuff sent to [employer] [facility] 3) Send me 3 BP [...] hyperactivity disorder) (more content not included)... Normal [facility] 07-16-2024 [facility] DENTON JOLLEY ([id number]) 1995 Date Time Provider Department 07/16/[address] [facility] During your visit today, we recorded the following information about you: Yoselin Dietrich 07/16/2024 3:56 PM Signed Patient said he was told his rx fluoxetine 40 mg was sent to [facility]. It was updated in chart, but not sent. He would like a call back at [phone] when sent. Tammy Fowler MD 07/16/2024 4:20 PM Signed Sorry sent Ej Faria MA 07/16/2024 4:33 PM Signed Called and left generic message on that Rx has been sent to Pharmacy as requested. If questions to contact office and speak with Triage Nurse. Ej Faria MA Allergies As of Date: 07/16/2024 (No Known Allergies) Date Reviewed: 06/11/2024 Reviewed by: Cinda Caldera APRN.[facility] - Fully Assessed Reason for Visit: Rx [...] Encounter Status:Closed by EJ FARIA on 07/16/24 [facility] Telephone (INTMWS) DENTON JOLLEY ([id number]) 1995 M Date Time Provider Department 07/16/24 CINDA CALDERA INTMWS During your visit today, we recorded the following information about you: Vanessa Soria LPN 07/16/2024 2:29 PM Signed Patient is wanting to increase to Fluoxetine to 40mg, feels he has leveled out, not really effects anymore. [facility] Denton took his last pill this AM, [...] Known Allergies) Date Reviewed: 06/11/2024 Reviewed by: Cidna Caldera APRN.DIRECTOR BLOOD BANK - Fully Assessed Visit Diagnoses:Anxiety with depression [...] Encounter Status:Closed by LORI WILKES on 07/16/24 [facility] CNOVdanita 06-11-2024 CNOV Office Visit (FAMPWS ) DENTON JOLLEY ([id number]) 1995 M Date Time Provider Department 06/11/24 3:40 PM CINDA CALDERAPWS During your visit today, we recorded the following information about you: Pulse Blood pressure Weight Height 68/minute 136/80 78.5 kg 1.829 m Cinda Caldera APRN.DIRECTOR BLOOD BANK 06/11/2024 3:57 PM Signed This is a [...] Date Reviewed: 06/11/2024 Reviewed by: Cinda Caldera APRN.DIRECTOR BLOOD BANK - Fully Assessed Reason for Visit: Follow [...] Service: OFFICE/OUTPATIENT ESTABLISHED LOW MDM 20 MIN [61263] Disposition: Return in about 3 months (around 09/11/2024) for stress level. Follow-up and Disposition History for Encounter Date Provider Department Center 06/11/2024 [id number]-DBLBPHOLIVER CALDERA*FAMPWS [facility] Encounter Status:Closed by CINDA CALDERA on 06/11/24 [facility] Auto Differential pane l (Bld)on 02-28-2024 Basophils (Bld) [#[facility]Vol[facility] Basophils/100 WBC (Bld) 0.2 % [facility] Differential cell count method Nom (Bld) Auto [facility] Eosinophils (Bld) [#/Vol] 0.10 10*3/uL NINF [facility] Eosinophils/100 WBC (Bld) 1.1 % [facility] Erythrocyte distribution width (RBC) [Ratio] 11.9 % 11.5 - 15.0 % [facility] Hematocrit (Bld) [Volume fraction] 46.1 % 39.0 - 51.0 % [facility] Hemoglobin (Bld) [Mass/Vol] 16.0 g/dL 13.0 - 17.0 g/dL [facility] Immature granulocytes (Bld) [#/Vol] 0.03 10*3/uL [facility] Immature granulocytes/100 WBC (Bld) 0.3 % [facility] Lymphocytes (Bld) [#/Vol] 3.16 10*3/uL [facility] Lymphocytes/100 WBC (Bld) 35.0 % [facility] MCH (RBC) [Entitic mass] 30.4 pg 26.0 - 34.0 pg [facility] MCHC (RBC) [Mass/Vol] 34.7 g/dL 30.5 - 36.0 g/dL [facility] MCV (RBC) [Entitic vol] 87.6 fL 80.0 - 100.0 fL [facility] Monocytes (Bld) [#/Vol] 0.77 10*3/uL [facility] Monocytes/100 WBC (Bld) 8.5 % [facility] Neutrophils (Bld) [#/Vol] 4.94 10*3/uL [facility] Neutrophils/100 WBC (Bld) 54.9 % [facility] Nucleated RBC (Bld) [#/Vol] [facility] Nucleated RBC/100 WBC (Bld) [Ratio] 0.0 % /100 WBC [facility] Platelet mean volume (Bld) [Entitic vol] 10.5 fL 9.0 - 12.7 fL [facility] Platelets (Bld) [#/Vol] 226 10*3/uL [facility] RBC (Bld) [#/Vol] 5.26 10*6/uL 4.20 - 6.0 0 m/uL [facility] WBC (Bld) [#/Vol] 9.02 10*3/uL [facility] ALLIED HEALTHon 07-24-2020 ALLIED HEALTH HNO ID: [id number] Author: Lilly (Rt) Mayi Tarango Service: Radiology Author Type: Malt House Operator Type: Allied Health Filed: 07/23/2020 11:27 PM [...] RT Kassy July 23, 2020 11:26 PM [facility] ED NOTEon 07-24-2020 ED NOTE HNO ID: [id number] Author: Michelle ReedRn) MILAD Robison Service: ? Author Type: Registered Nurse Type: ED Notes Filed: 07/24/2020 12:07 AM Note Text: dr glez at bedside to talk with pt regarding results and plan of care. [facility] ED NOTE HNO ID: [id number] Author: Michelle Lees) MILAD Robison Service: ? Author Type: Registered Nurse Type: ED Notes Filed: 07/24/2020 12:07 AM Note Text: pt given dc instructions and follow up care he verbalized understanding. [facility] ED NOTE HNO ID: [id number] Author: Michelle Robison RN Service: ? Author Type: Registered Nurse Type: ED Notes Filed: 07/24/2020 12:01 AM Note Text: pt given air cast and crutches, [facility] ED NOTE HNO ID: [id number] Author: Michelle Lees) MILAD Robison Service: ? Author Type: Registered Nurse Type: ED Notes Filed: 07/23/2020 11:16 PM Note Text: xr at bedside [facility] ED NOTE HNO ID: [id number] Author: Michelle Lees) MILAD Robison Service: ? Author Type: Registered Nurse Type: ED Notes Filed: 07/23/2020 11:07 PM Note Text: dr glez in room [facility] ED NOTE HNO ID: [id number] Author: Michelle (Rn) MILAD Robison Service: ? Author Type: Registered Nurse Type: ED Notes Filed: 07/23/2020 11:02 PM Note Text: pt offered ice pack Normal [facility] ED PROV NOTEon 07-24-2020 ED PROV NOTE HNO ID: [id number] Author: Lavelle Glez MD Service: ? Author [...] ankle. PAST MEDICAL HISTORY Diagnosis Date - [facility] - PAST MEDICAL HISTORY OF 06/27/01 [...] cast and give crutches, follow-up with orthopedic potline monitor PRN ED Course / Clinical Impression Clinical Impressions as of Jul 23 2344 Right ankle sprain Acute right ankle pain MDM / Disposition / Plan MDM SIGNATURE: MD Lavelle Zaragoza MD 07/23/202355 [facility] XR ANKLE 3V AP/LAT/OBL RTon 07-24-2020 [...] Right foot: Negative for fracture or malalignment. Gluten Settling Tender: PSCB Transcribe Date/Time: Jul 23 2020 11:47P Dictated by : JULIUS PENNY MD This examination was interpreted and the report reviewed and electronically signed by: JULIUS PENNY MD on Jul 23 2020 11:49PM EST [id number] N [facility] XR FOOT 3V AP/LAT/OBL RTon 0 07-24-2020 XR FOOT 3V AP/LAT/OBL RT * * *Final Report* * * DATE OF EXAM: Jul 23 2020 11:24PM MDX 5337 - XR FOOT 3V AP/LAT/OBL RT / PROCEDURE REASON: Foot trauma, Ambler neg, initial exam * * * * [...] Right foot: Negative for fracture or malalignment. Gluten Settling Tender: EDMUND Transcribe Date/Time: Jul 23 2020 11:47P Dictated by : JULIUS PENNY MD This examination was interpreted and the report reviewed and electronically signed by: JULIUS PENNY MD on Jul 23 2020 11:49PM EST [id number] [facility] Vital Signs Date Time Vital Sign Value Performing Clinician Facility 05-09-2025 15:39-0400 Body height 182.[address] Tammy Fowler MD Work Phone: [facility] 05-09-2025 15:39-0400 Body mass index (BMI) [Ratio] 26.4 kg/m2 Dr. Tammy Fowler MD Work Phone: [facility] 05-09-2025 15:39-0400 Body temperature 96.7 [degF] Dr. Tammy Fowler MD Work Phone: [facility] 05-09-2025 15:39-0400 Body weight 88.[address] Tammy Fowler MD Work Phone: [facility] 05-09-2025 15:39-0400 Diastolic blood pressure 79 mm[Hg] Dr. Tammy Fowler MD Work Phone: [facility] 05-09-2025 15:39-0400 Heart rate 60 /min Dr. Tammy Fowler MD Work Phone: 7(567)289-476975 [place] [address] 05-09-2025 15:39-0400 Respiratory rate 18 /min Dr. Tammy Fowler MD Work Phone: 3(448)627-332075 [place] [address] 05-09-2025 15:39-0400 SaO2% (BldA) [Mass fraction] 97 % Dr. Tammy Fowler MD Work Phone: 8(632)880-696875 [place] [address] 05-09-2025 15:39-0400 Systolic blood pressure 144 mm[Hg] Dr. Tammy Fowler MD Work Phone: 0(589)619-870875 [place] [address] 05-04-2025 16:27-0400 Body mass index (BMI) [Ratio] 25.7 kg/m2 Dr. Tammy Fowler MD Work Phone: 7(843)705-848575 [place] [address] 05-04-2025 16:27-0400 Body weight 86.[address] Tammy Fowler MD Work Phone: 0(780)233-366475 [place] [address] 05-04-2025 15:45-0400 Body height 182.[address] Tammy Fowler MD Work Phone: 4(269)829-240375 [place] [address] 05-04-2025 15:45-0400 Diastolic blood pressure 64 mm[Hg] Dr. Tammy Fowler MD Work Phone: 4(900)066-912075 [place] [address] 05-04-2025 15:45-0400 Heart rate 59 /min Dr. Tammy Fowler MD Work Phone: 2(024)676-861275 [place] [address] 05-04-2025 15:45-0400 Respiratory rate 16 /min Dr. Tammy Fowler MD Work Phone: 0(045)663-973475 [place] [address] 05-04-2025 15:45-0400 SaO2% (BldA) [Mass fraction] 97 % Dr. Tammy Fowler MD Work Phone: 5(881)539-921075 [place] [address] 05-04-2025 15:45-0400 Systolic blood pressure 140 mm[Hg] Dr. Tammy Fowler MD Work Phone: 8(496)811-436875 [place] [address] 05-04-2025 15:44-0400 Body temperature 97.1 [degF] Dr. Tammy Fowler MD Work Phone: 6(522)781-232375 [place] [address] 05-01-2025 21:03-0400 Body temperature 97.9 [degF] Dr. Tammy Fowler MD Work Phone: 8(538)996-851575 [place] [address] 05-01-2025 21:03-0400 Diastolic blood pressure 77 mm[Hg] Dr. Tammy Fowler MD Work Phone: 9(207)406-385675 [place] [address] 05-01-2025 21:03-0400 Heart rate 75 /min Dr. Tammy Fowler MD Work Phone: 6(347)895-844975 [place] [address] 05-01-2025 21:03-0400 Respiratory rate 14 /min Dr. Tammy Fowler MD Work Phone: 3(754)131-887375 [place] [address] 05-01-2025 21:03-0400 SaO2% (BldA) [Mass fraction] 100 % Dr. Tammy Fowler MD Work Phone: 9(625)279-696675 [place] [address] 05-01-2025 21:03-0400 Systolic blood pressure 131 mm[Hg] Dr. Tammy Fowler MD Work Phone: 5(523)814-365575 [place] [address] 05-01-2025 19:09-0400 Body height 182.[address] Tammy Fowler MD Work Phone: 5(509)717-278775 [place] [address] 05-01-2025 19:09-0400 Body mass index (BMI) [Ratio] 25.2 kg/m2 Dr. Tammy Fowler MD Work Phone: 7(166)795-448075 [place] [address] 05-01-2025 19:09-0400 Body weight 84.[address] Tammy Fowler MD Work Phone: 9(704)331-675575 [place] [address] 01-07-2025 16:16-0500 Body mass index (BMI) [Ratio] 25.5 kg/m2 Cinda Caldera APRN.DIRECTOR BLOOD BANK Work Phone: 9(650)936-922794 [place] [address] 01-07-2025 16:16-0500 Body temperature 97.81 [degF] Cinda Caldera APRN.DIRECTOR BLOOD BANK Work Phone: 8(779)959-151494 [place] [address] 01-07-2025 16:16-0500 Body weight 85.28 kg Cinda Caldera APRN.DIRECTOR BLOOD BANK Work Phone: [facility] 01-07-2025 16:16-0500 Diastolic blood pressure 78 mm[Hg] Cinda Suppan BELT LACER.DIRECTOR BLOOD BANK Work Phone: [facility] 01-07-2025 16:16-0500 Heart rate 68 /min Cinda Suppan BELT LACER.DIRECTOR BLOOD BANK Work Phone: [facility] 01-07-2025 16:16-0500 SaO2% (BldA) [Mass fraction] 100 % Cinda Suppan BELT LACER.DIRECTOR BLOOD BANK Work Phone: [facility] 01-07-2025 16:16-0500 Systolic blood pressure 140 mm[Hg] Cinda Suppan BELT LACER.DIRECTOR BLOOD BANK Work Phone: [facility] 06-11-2024 15:56-0400 Diastolic blood pressure 80 mm[Hg] Cinda Suppan BELT LACER.DIRECTOR BLOOD BANK Work Phone: [facility] 06-11-2024 15:56-0400 Systolic blood pressure 136 mm[Hg] Cinda Suppan BELT LACER.DIRECTOR BLOOD BANK Work Phone: [facility] 06-11-2024 15:43-0400 Body height 182.9 cm Cinda Suppan BELT LACER.DIRECTOR BLOOD BANK Work Phone: [facility] 06-11-2024 15:43-0400 Body mass index (BMI) [Ratio] 23.46 kg/m2 Cinda Suppan BELT LACER.DIRECTOR BLOOD BANK Work Phone: [facility] 06-11-2024 15:43-0400 Body weight 78.47 kg Cinda Suppan BELT LACER.DIRECTOR BLOOD BANK Work Phone: [facility] 06-11-2024 15:43-0400 Heart rate 68 /min Cinda Suppan BELT LACER.DIRECTOR BLOOD BANK Work Phone: [facility] 06-11-2024 15:43-0400 SaO2% (BldA) [Mass fraction] 98 % Cinda Suppan BELT LACER.DIRECTOR BLOOD BANK Work Phone: [facility] 02-28-2024 16:17-0400 Body mass index (BMI) [Ratio] 22.51 kg/m2 Cinda Suppan BELT LACER.JAILKEEPER Work Phone: [facility] 02-28-2024 16:17-0400 Body weight 75.3 kg Cinda Suppan BELT LACER.JAILKEEPER Work Phone: [facility] 02-28-2024 16:17-0400 Diastolic blood pressure 76 mm[Hg] Cinda Suppan BELT LACER.JAILKEEPER Work Phone: [facility] 02-28-2024 16:17-0400 Heart rate 58 /min Cinda Suppan BELT LACER.JAILKEEPER Work Phone: [facility] 02-28-2024 16:17-0400 Respiratory rate 16 /min Cinda Suppan BELT LACER.JAILKEEPER Work Phone: [facility] 02-28-2024 16:17-0400 SaO2% (BldA) [Mass fraction] 98 % Cinda Suppan BELT LACER.JAILKEEPER Work Phone: [facility] 02-28-2024 16:17-0400 Systolic blood pressure 124 mm[Hg] Cinda Suppan BELT LACER.JAILKEEPER Work Phone: [facility] 01-28-2024 07:31-0400 Body temperature 97.39 [degF] Mara Praisler-Wood BELT LACER.DIRECTOR BLOOD BANK Work Phone: [facility] 01-28-2024 07:31-0400 Body weight 74.7 kg Mara Praisler-Wood BELT LACER.DIRECTOR BLOOD BANK Work Phone: [facility] 01-28-2024 07:31-0400 Diastolic blood pressure 80 mm[Hg] Mara Praisler-Wood BELT LACER.DIRECTOR BLOOD BANK Work Phone: [facility] 01-28-2024 07:31-0400 Heart rate 50 /min Mara Praisler-Wood BELT LACER.DIRECTOR BLOOD BANK Work Phone: [facility] 01-28-2024 07:31-0400 Respiratory rate 16 /min Mara Praisler-Wood BELT LACER.DIRECTOR BLOOD BANK Work Phone: [facility] 01-28-2024 07:31-0400 SaO2% (BldA) [Mass fraction] 98 % Mara Contreras-Chi BELT LACER.DIRECTOR BLOOD BANK Work Phone: [facility] 01-28-2024 07:31-0400 Systolic blood pressure 122 mm[Hg] Mara Contreras-Chi BELT LACER.DIRECTOR BLOOD BANK Work Phone: [facility] 11-11-2022 16:43-0500 Heart rate 68 /min [facility] Work Phone: 11-11-2022 16:43-0500 Respiratory rate 17 /min [facility] Work Phone: 11-11-2022 16:43-0500 SaO2% (BldA) [Mass fraction] 99 % [facility] Work Phone: 11-11-2022 15:29-0500 Body height 182.88 cm [facility] Work Phone: 11-11-2022 15:29-0500 Body mass index (BMI) [Ratio] 22.4 kg/m2 [facility] Work Phone: 11-11-2022 15:29-0500 Body temperature 98 [degF] [facility] Work Phone: 11-11-2022 15:29-0500 Body weight 74.84 kg [facility] Work Phone: 11-11-2022 15:29-0500 Diastolic blood pressure 70 mm[Hg] [facility] Work Phone: 11-11-2022 15:29-0500 Systolic blood pressure 134 mm[Hg] [facility] Work Phone: 05-22-2022 16:12-0400 Body height 182.9 cm Dereck Cano PA-C Work Phone: [facility] 05-22-2022 16:12-0400 Body temperature 99.39 [degF] Dereck Cano PA-C Work Phone: [facility] 05-22-2022 16:12-0400 Body weight 70.31 kg Dereck Cano PA-C Work Phone: [facility] 05-22-2022 16:12-0400 Diastolic blood pressure 86 mm[Hg] Dereck Cano PA-C Work Phone: [facility] 05-22-2022 16:12-0400 Heart rate 78 /min Dereck Cano PA-C Work Phone: [facility] 05-22-2022 16:12-0400 Respiratory rate 12 /min Dereck Cano PA-C Work Phone: [facility] 05-22-2022 16:12-0400 SaO2% (BldA) [Mass fraction] 100 % Dereck Cano PA-C Work Phone: [facility] 05-22-2022 16:12-0400 Systolic blood pressure 136 mm[Hg] Dereck Cano PA-C Work Phone: [facility] Encounters Encounter Date Encounter Type Care Provider Facility Start: 05-09-2025 End: 05-09-2025 Emergency department patient visit Dr. Tammy Fowler MD Work Phone: -Emergency Department Work Phone: Start: 05-04-2025 End: 05-04-[address] Tammy Fowler MD Work Phone: -Emergency Department Start: 05-04-2025 End: 05-04-[address] Lee Gentile MD -Emergency Department Work Phone: Start: 05-04-2025 End: 05-04-2025 ambulatory Lee Gentile Facility:[facility] Start: 05-01-2025 End: 05-01-2025 Emergency department patient visit Dr. Tammy Fowler MD Work Phone: -Emergency Department Work Phone: Start: 03-26-2025 End: 03-26-2025 Patient encounter procedure Linsey Vaughn FRESH WORK WRAPPER LAYER-C -Radiology [facility] Work Phone: Start: 03-26-2025 End: 03-26-[address] Tammy Fowler MD Work Phone: [facility] Work Phone: Start: 03-26-2025 End: 03-26-2025 ambulatory Tammy Fowler Facility:[facility] Start: 01-07-2025 End: 01-07-2025 Office outpatient visit 15 minutes Cinda Caldera BELT LACER.DIRECTOR BLOOD BANK Work Phone: [facility] Comment on above: Elevated blood press ure reading without diagnosis of hypertension (Primary Dx); Screening for depression; Encounter for screening examination for other mental health and behavioral disorders; ADHD (attention deficit hyperactivity disorder), predominantly hyperactive impulsive type Start: 01-07-2025 End: 01-07-2025 ambulatory CINDA Watkins SUPPMEENA Facility:[facility] Start: 07-16-2024 End: 07-16-2024 Telephone encounter Cinda Caldera BELT LACER.DIRECTOR BLOOD BANK Work Phone: [facility] [place] Comment on above: Rx updated, but not sent to pharmacy Start: 06-11-2024 End: 06-11-2024 Office outpatient visit 15 minutes Cinda Caldera BELT LACER.DIRECTOR BLOOD BANK Work Phone: [facility] Comment on above: Anxiety with depress ion (Primary Dx); Irritability Start: 06-11-2024 End: 06-11-2024 ambulatory CINDA CALDERA Facility:[facility] Start: 03-09-2024 Telephone encounter Cinda Caldera BELT LACER.JAILKEEPER Work Phone: [facility] Comment on above: Results Start: 02-28-2024 End: 02-28-2024 Office outpatient visit 15 minutes Cinda Caldera BELT LACER.JAILKEEPER Work Phone: [facility] Comment on above: Irritability (Primar y Dx); Anxiety with depression Start: 01-28-2024 End: 01-28-2024 Patient encounter procedure Mara Felder APRN.DIRECTOR BLOOD BANK Work Phone: [facility] Comment on above: Sinobronchitis (Prim kayy Dx); Middle ear effusion, left Start: 11-11-2022 End: 11-11-2022 Emergency department patient visit [facility]-Emergency Department Start: 07-31-2022 Telephone encounter Dereck law [...] Adult depression scr eening assessment Cinda Caldera BELT LACER.DIRECTOR BLOOD BANK Work Phone: Start: 11-11-2022 Diagnostic radiograp hy of finger Start: 07-20-2019 Adult depression scr eening assessment Dereck aCno PA-C Work Phone: Plan of Treatment Date Care Activity Detail Author Start: 01-07-2026 Anxiety Screening Anxiety Screening [facility] Start: 01-07-2026 Depression Screening Depression Scre [facility] Start: 05-03-2025 Influenza vaccination Influenz a Vaccine (#1) [facility] Comment on above: Postponed from 07/05 (Declined at this time) Start: 05-01-2025 [facility] Start: 02-18-2025 End: 02-18-2025 Patient encounter procedure 02/18/2025 3:00 PM EDT Office Visit [facility] [place] [address] [place], [place] [id number] Cinda Caldera BELT LACER.DIRECTOR BLOOD BANK [address] [place] [address] 6 week ADD medication follow up [facility] [place] Comment on above: 6 week ADD medicatio n follow up Start: 07-05-2024 Covid-19 Vaccine (2022- season) Covid-19 Vaccine ( season) [facility] Start: 07-05-2024 Covid-19 Vaccine ( season) Covid-19 Vaccine () [facility] Start: 07-05-2024 Influenza vaccination [facility] Start: 02-28-2024 End: 05-29-2024 Cobalamin (Vitamin B12) [Mass/volume] in Serum or Plasma [facility] Comment on above: Expected: 02/28/2024 , Expires: 05/29/2024 Start: 02-28-2024 End: 05-29-2024 Comprehensive metabolic 2000 panel - Serum or Plasma [facility] Work Phone: Comment on above: Expected: 02/28/2024 , Expires: 05/29/2024 Start: 02-28-2024 End: 05-29-2024 LIPID PANEL, NONFASTING [facility] Comment on above: Expected: 02/28/2024 , Expires: 05/29/2024 Start: 02-28-2024 End: 05-29-2024 Magnesium [Mass/volume] in Serum or Plasma [facility] Comment on above: Expected: 02/28/2024 , Expires: 05/29/2024 Start: 02-28-2024 End: 05-29-2024 TESTOSTERONE, FREE AND TOTAL [facility] Comment on above: Expected: 02/28/2024 , Expires: 05/29/2024 Start: 02-28-2024 End: 05-29-2024 Thyrotropin [Units/volume] in Serum or Plasma [facility] Comment on above: Expected: 02/28/2024 , Expires: 05/29/2024 Start: 11-04-2023 Behavioral Health Screening Behavioral Health Screening [facility] Start: 11-04-2023 Depression Assessment Depression Ass essment [facility] Start: 07-05-2023 Covid-19 Vaccine ( season) Covid-19 Vaccine () [facility] Start: 07-05-2023 Influenza vaccination Influenz a Vaccine (#1) [facility] Start: 07-05-2022 Influenza vaccination INFLUENZA (#1) [facility] Start: 11-04-2021 DEPRESSION ASSESSMENT DEPRESSION ASS ESSMENT [facility] Start: 07-20-2020 Adult depression screening assessment DEPRESSION SCREENING [facility] Start: 05-23-2017 Urine microalbumin profile [facility] Start: 2011 Anxiety Screening Anxiety Screening [facility] Start: 2011 Depression Screening Depression Scre ening [facility] Start: 2011 HEPATITIS C SCREENING HEPATITIS C [facility] Start: 2011 Hepatitis C screening Hepatitis C [facility] Start: 2011 HIV SCREENING HIV SCREENING [facility] Start: 2011 HIV screening HIV Screening [facility] Start: 06-17-1994 COVID-19 VACCINE (#1) COVID-19 VACCI NE (#1) [facility] Patient Education [facility] Work Phone: Patient referral [facility] Work Phone: Vasectomy uni/bi spx w/postop semen exams VASECTOMY Procedures Routine Vasectomy evaluation Ordered: 05/22/2022 [facility] Work Phone: Comment on above: Ordered: 05/22/2022 [facility] Immunizations Immunization Date Immunization Notes Care Provider [facility] 05-09-2025 rabies vaccine, for intramuscular injection Dr. Tammy Fowler MD Work Phone: [facility] 05-04-2025 rabies vaccine, for intramuscular injection Dr. Tammy Fowler MD Work Phone: [facility] 05-01-[address] Meghana Fowler MD Work Phone: [facility] 05-01-2025 rabies vaccine, for intramuscular injection Dr. Tammy Fowler MD Work Phone: [facility] 05-27-2008 varicella virus vaccine Tony Cano PA-C Work Phone: [facility] Work Phone: 05-23-2007 Meningococcal, MCV4, unspecified conjugate formulation(groups A, C, Y and W-135) Dereck Cano PA-C Work Phone: [facility] Work Phone: 05-23-2007 tetanus toxoid, redu shana diphtheria toxoid, and acellular pertussis vaccine, adsorbed Dereck Cano PA-C Work Phone: [facility] Work Phone: 09-16-2003 influenza virus vaccine, unspecified formulation Dereck Cano PA-C Work Phone: [facility] 09-28-2002 influenza virus vaccine, unspecified formulation Dereck Cano PA-C Work Phone: [facility] 03-15-1999 diphtheria, tetanus toxoids and acellular pertussis vaccine Dereck Cano PA-C Work Phone: [facility] 03-15-1999 measles, mumps and rubella virus vaccine Dereck Cano PA-C Work Phone: [facility] 03-15-1999 poliovirus vaccine, inactivated Dereck Cano PA-C Work Phone: [facility] 10-18-1997 varicella virus vaccine Bran don Cano PA-C Work Phone: [facility] 01-23-1995 hepatitis B vaccine, pediatric or pediatric/adolescent dosage Dereck Cano PA-C Work Phone: [facility] 12-26-1994 diphtheria, tetanus toxoids and acellular pertussis vaccine Dereck Cano PA-C Work Phone: [facility] 12-26-1994 haemophilus influenz ae type b vaccine, conjugate unspecified formulation Cinda Suppan BELT LACER.JAILKEEPER Work Phone: [facility] 12-26-1994 hepatitis B vaccine, pediatric or pediatric/adolescent dosage Cinda Suppan BELT LACER.JAILKEEPER Work Phone: [facility] 12-26-1994 measles, mumps and rubella virus vaccine Dereck Cano PA-C Work Phone: [facility] 06-06-1994 diphtheria, tetanus toxoids and acellular pertussis vaccine Dereck Cano PA-C Work Phone: [facility] 06-06-1994 haemophilus influenz ae type b vaccine, conjugate unspecified formulation Cinda Suppan BELT LACER.JAILKEEPER Work Phone: [facility] 06-06-1994 poliovirus vaccine, inactivated Dereck Cano PA-C Work Phone: [facility] 04-12-1994 diphtheria, tetanus toxoids and acellular pertussis vaccine Dereck Cano PA-C Work Phone: [facility] 04-12-1994 haemophilus influenz ae type b vaccine, conjugate unspecified formulation Cinda Suppan BELT LACER.JAILKEEPER Work Phone: [facility] 04-12-1994 poliovirus vaccine, inactivated Dereck Cano PA-C Work Phone: [facility] 02-15-1994 diphtheria, tetanus toxoids and acellular pertussis vaccine Dereck Cano PA-C Work Phone: [facility] 02-15-1994 haemophilus influenz ae type b vaccine, conjugate unspecified formulation Cinda Suppan BELT LACER.JAILKEEPER Work Phone: [facility] 02-15-1994 poliovirus vaccine, inactivated Dereck Cano PA-C Work Phone: [facility] 01-17-1994 hepatitis B vaccine, pediatric or pediatric/adolescent dosage Dereck Cano PA-C Work Phone: [facility] 1993 hepatitis B vaccine, pediatric or pediatric/adolescent dosage Dereck Cano PA-C Work Phone: [facility] Payers Date Payer Category Payer Self-pay [id number] 2021 Private Health Insurance KOFFI MEHTA [id number] 2021-Present [phone] GINA [id number] MARCK LANZA [id number] Open Access [id number] 2021 Private Health Insurance [id number] 2021 Private Health Insurance [id number] 1994 Unknown [id number] Unknown [id number] Unknown [id number] Unknown [id number] Social History Date Type Detail Facility Start: 03-14-2012 End: 05-01-2025 Tobacco smoking status NHIS Never smoked tobacco [facility] Start: 05-22-2022 End: 01-07-2025 Alcohol intake Current drinker of alcohol (finding) [facility] Start: 04-07-2018 History SDOH Alcohol Comment 1-2 beers per month [facility] Start: 1995 Sex Assigned At Not on file [facility] Start: 05-12-2022 End: 05-22-2022 Exposure to SARS-CoV-2 (event) Not sure [facility] Start: 03-14-2012 End: 01-28-2024 Tobacco use and exposure Smokeless tobacco non-user [facility] Work Phone: Start: 11-11-2022 Tobacco smoking stat us NHIS Unknown if ever smoked [facility] Work Phone: Start: 1995 Sex Assigned At Male [facility] Start: 01-28-2024 End: 02-28-2024 History of Social function [facility] Start: 01-28-2024 End: 02-28-2024 Tobacco use panel [facility] Adult Depression Screening Assessment 0 [facility] Clinical Notes 09-11-2010 to 05-01-2025 Note Date & Type Note Facility 05-01-2025 Discharge summary [facility] 05-01-2025 Discharge summary Note Date/Time May 01, 2025 8:16pm [facility] Medical Records Department [address] [place] [address] Emergency Department Summary 05/01/25 MR#: [id number] Acct: [id number] Name: DENTON JOLLEY Rep #:[id number] : 1995 29 From: Lee Gentile [...] 2 Days for wound check Print Language: Romanian Disposition Disposition: Home, Self Care What to do if you have Problems For any increased pain, shortness of breath, bleeding, nausea or vomiting, chestpain, or any unexpected problems, contact your Primary Care Provider. Call [facility] ([phone]) or report to the closest Emergency Room. Call 911 if necessary. 05/01/252015 <Electronically signed by Lee Gentile MD> Cosigner Signature (if applicable): CC: Dr. Tammy Fowler MD ~ Signed [facility] Work Phone: [phone] NoteHNO ID: [id number] Author: LINSEY VAUGHN APRN.DIRECTOR BLOOD BANK Service: ? Author Type: Nurse Practitioner Type: Progress Notes Filed: 03/26/2025 09:23 Note Text: [facility] Subjective Denton Jolley is a [...] or do not improve. and Recording using The 3Doodler software for draft documentation of the visit was discussed with the patient/authorized sales representative malt liquors; all questions welcomed and answered. Patient/authorized sales representative malt liquors agreed to proceed [facility]2025 Radiology Diagnostic study note [facility] Imaging Services [address] [place] [address] Chest PA and Lateral MR#: [id number] Acct: [id number] Name: DENTON JOLLEY Rep #: [id number] : 1995 M 29 From: Francisco Osborn MD PCP: Dr. Tammy Fowler MD Status: REG C LI Study:Chest PA and Lateral Date of Exam: 03/26/25 Exam# [id number] Ordering Dr: Do zeynep Vaughn FR[employer] WRAPPER LAYER-[place] PROCEDURE: CHEST PA AND LATERAL 03/26/2025 REASON FOR EXAM: COUGH TECHNIQUE: Frontal and lateral views of the chest. COMPARISON: None FINDINGS: Hardware: None Heart: The heart size is normal. Mediastinum: The mediastinal contour is unremarkable. Lungs: The lungs are clear. Bones: The bones are unremarkable. RAD/Chest PA and Lateral IMPRESSION: NEGATIVE CHEST Reading Location: [place] [address] CC: SUSU Vaughn; Dr. Tammy Fowler MD ~ Gluten Settling Tender: Signed [facility]03-06-2025 Instructions* Patient Instructions* Cinda Caldera APRN.CNP - 01/07/2025 4:50 PM EST 1) Strattera 40 mg daily 2) DME- BP cuff sent to [employer] [facility] 3) Send me 3 BP readings in 1 or 2 weeks documented in this encounterNation[facility]03-[facility]-2025 NoteHNO ID: [id number] Author: CINDA CALDERA APRN.CNP Service: ? Author Type: Nurse Practitioner Type: Progress Notes Filed: 01/07/2025 16:52 Note Text: This is a 29 year old male who presents today with: Patient presents with: ADD/ADHD HISTORY OF PRESENT ILLNESS: Denton Jolley is a 29 year old male. Patient presents with: ADD/ADHD [place] like fluoxetine just numbed him out. Behavior [...] as needed for worsening/no improvement. Cinda Caldera APRN.[facility]03-06-2025 History of Present illness Narrative* Cinda Caldera APRN.[facility] - 01/07/2025 4:21 PM EST This is a 29 year old male who presents today with: Patient presents with: ADD/ADHD HISTORY OF PRESENT ILLNESS: Denton Jolley is a 29 year old male. Patient presents with: ADD/ADHD [place] like fluoxetine just numbed him out. Behavior [...] as needed for worsening/no improvement. Cinda Caldera APRN.DIRECTOR BLOOD BANK documented in this encounterNationwide [facility]09-12-2024 Telephone encounter Note * Telephone Encounter - Ej aFria MA - 07/16/2024 4:32 PM EDT Called and left generic message on VM that Rx has been sent to Pharmacy as requested. If questions to contact office and speak with Triage Nurse. Ej Faria MA [facility]09-12-2024 Miscellaneous Notes* Telephone Encounter - Ej [...] He would like a call back at [phone] when sent. documented in this encounterNationwide Children'S Hospital09-12-2024 Telephone encounter Note * Telephone Encounter - Tammy Fowler MD - 07/16/2024 4:20 PM EDT Sorry sent [facility]09-12-2024 Telephone encounter Note* Telephone Encounter - Yoselin Dietrich - 07/16/2024 3:54 PM EDT Patient said he was told his rx fluoxetine 40 mg was sent to [facility]. It was updated in chart, but not sent. He would like a call back at [phone] when sent. [facility]09-12-2024 Telephone encounter Note* Telephone Encounter - Lori Wilkes MA - 07/16/2024 3:08 PM EDT Spoke with pt and advised needed a one moth medication follow up. He will call back when he knows his 's schedule. Lori Wilkes MA [facility]09-12-2024 Miscellaneous Notes* Telephone Encounter - Lori [...] Asking for new RX to go to [facility]. Denton took his last pill this AM, asking if RX could go today, Patient will check with pharmacy later. Vanessa Soria LPN documented in this encounterNationwide Children'S Hospital09-12-2024 Telephone encounter Note * Telephone Encounter - Tammy Fowler MD - 07/16/2024 2:34 PM EDT Rx sent. Please schedule follow up with one of us [facility]09-12-2024 Telephone encounter Note* Telephone Encounter - Vanessa Soria LPN - 07/16/2024 2:26 PM EDT Patient is wanting to increase to Fluoxetine to 40mg, feels he has leveled out, not really effects anymore. Asking for new RX to go to [facility]. Denton took his last pill this AM, asking if RX could go today, Patient will check with pharmacy later. Vanessa Soria LPN [facility]08-08-2024 Instructions* Patient Instructions* Cinda Caldera APRN.DIRECTOR BLOOD BANK - 06/11/2024 3:57 PM EDT 1) Increase fluoxetine to 20 mg daily 2) Follow up in 3 months documented in this encounterNationwide Children'S Hospital08-08-2024 NoteHNO ID: [id number] Author: CINDA CALDERA APRN.CNP Service: ? Author [...] as needed for worsening/no improvement. Cinda Caldera APRN.[facility]08-08-2024 History of Present illness Narrative* Cinda Caldera APRN.BISHOP - 06/11/2024 3:47 PM EDT This is [...] as needed for worsening/no improvement. Cinda Caldera APRN.DIRECTOR BLOOD BANK documented in this encounterNationwide Children'S Hospital05-08-2024 Telephone encounter Note * Telephone Encounter - Whit Bradford LPN - 03/11/2024 11:49 AM EDT Patient did review this lab on [employer]. [facility]05-08-2024 Miscellaneous Notes* Telephone Encounter - Whit Bradford LPN - 03/11/2024 11:49 AM EDT Patient did review this lab on [employer]. * Telephone Encounter - Kristin Correa OCCA [...] labs were also normal. documented in this encounterNationwide Children'S Hospital05-06-2024 Telephone encounter Note * Telephone Encounter - Kristin Correa OCCA - 03/09/2024 1:57 PM EDT TC no answer. Left VM to return call. EVELIO Jimenes [facility]05-06-2024 Telephone encounter Note* Telephone Encounter - Cinda Caldera APRN.CNS - 03/09/2024 1:40 PM EDT Please let patient know that his testosterone levels came back and they are completely normal. No further labs needed. He is in high normal range. All other labs were also normal. [facility]04-26-2024 Instructions* Patient Instructions* Cinda Caldera APRN.CNS - 02/28/2024 4:52 PM EDT 1) Get labs 2) Start prozac 10 mg daily 3) Keep notes on irritability 4) follow up in 2 months documented in this encounterNationwide Children'S Hospital04-26-2024 History of Present illness Narrative* Cinda [...] Impatient Mood swings Quick temper Works at [employer] for 6 years, worked previous job for [...] agrees with the plan. documented in this encounterNationwide Children'S Hospital03-26-2024 History of Present illness Narrative* Mara Felder APRN.DIRECTOR BLOOD BANK - 01/28/2024 7:42 AM EDT Subjective Cough [...] Discussed expected course of illness Mara Felder APRN.DIRECTOR BLOOD BANK documented in this encounterCleveland [id number] Instructions* Patient Instructions* Mara Felder APRN.CNP - 01/28/2024 7:41 AM EDT ASSESSMENT/PLAN: 1. [...] days of proper treatment. documented in this encounterNationwide Children'S Hospital09-28-2022 Miscellaneous Notes* Telephone Encounter - Lucero Santizo LPN - 08/01/2022 8:51 AM EDT Called patient. Verified name and date of . Informed of order and verbalizes understanding. Lucero Santizo LPN * Telephone Encounter - Giulia Laughlin - 07/31/2022 12:51 PM EDT Pt scheduled for vasectomy on Saturday and is asking for pre-medication pill to take prior to procedure. 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 Dia Hooper. We are to call him to let him know once this has been sent over. Giulia Laughlin documented in this encounterNationwide Children'S Hospital07-19-2022 History of Present illness Narrative* Dereck [...] attests that he watched and understood the [facility] Vasectomy video and read and understood the [...] 50% of time in counseling AMARI Sherman, NVBRITT[place]IE documented [place] [address]2010 History of Past illness Narrative* Problem Noted Date Resolved Date Painful respiration 09/11/2010 04/07/2018 documented as of this encounter (statuses as of 05/22/2022) [address]08-2010 History of Past illness Narrative* Problem Noted Date Resolved Date Painful respiration 09/11/2010 04/07/2018 documented as of this encounter (statuses as of 08/01/2022) [address]08-2010 History of Past illness Narrative* Problem Noted Date Diagnosed Date Resolved Date Painful respiration 09/11/2010 04/07/20 documented as of this encounter (statuses as of 01/28/2024) [facility] note* Diagnosis Vasectomy evaluation- Primary Other general counseling and advice for contraceptive management [facility]* Diagnosis Vasectomy evaluation- Primary Other general counseling and advice for contraceptive management documented in this encounter [facility] noteNo assessment information availableWCherrington Hospital Work Phone: Evaluation note* Diagnosis Sinobronchitis- Primary Unspecified sinusitis (chronic) Middle ear effusion, left documented [facility] encounter [facility] Diagnosis Anxiety with depression- Primary Irritability documented in this encounter [facility] note* Diagnosis Anxiety with depression [facility]ritability [facility] Diagnosis Anxiety with depression Irritability documented in this encounter [facility] note* Diagnosis Irritability- Primary Anxiety with depression documented in this encounter [facility] note* Diagnosis Elevated blood pressure reading without diagnosis of hypertension- Primary Screening for depression Encounter for screening examination for other mental health and behavioral disorders ADHD (attention deficit hyperactivity disorder), predominantly hyperactive impulsive type Attention deficit disorder with hyperactivity documented in this encounter [facility] (narrative)No reason for referral information availableWCherrington Hospital Work Phone: Summary Purpose Family History No Family History Records FoundNo Family History Records FoundNo Family History Records Found Advance Directives Documents on File Type Date Recorded 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 No May 01, 2025 7:28pm Advance Directives No January 11 021 10:47am Chief Complaint and Reason for Visit Chief Complaint left thumb injury Chief Complaint Admit Date STAT ORDER/FAX RESULTS [phone] March 26, 2025 7:56am Chief Complaint Admit Date STAT ORDER/FAX RESULTS [phone] March 26, 2025 7:56am bite May 01, 2025 7:08 pm Chief Complaint Admit Date STAT ORDER/FAX RESULTS [phone] March 26, 2025 7:56am bite May 01, 2025 7:08 pm meds only May 04, 2025 5:49p m Chief Complaint Admit Date STAT ORDER/FAX RESULTS [phone] March 26, 2025 7:56am bite May 01, 2025 7:08 pm meds only May 04, 2025 5:49p m meds only May 09, 2025 3:37p m Additional Source Comments (unrecognized sect ion and content) No Status Records FoundNo Status Records FoundNo Status Records Found INFORMATION SOURCE (unrecogn ized section and content) DATE CREATED AUTHOR 07/23/2020 [facility] DATE CREATED AUTHOR AUTHOR'S ORGANIZ ATION 04/01/2025 [facility] DATE CREATED AUTHOR AUTHOR'S ORGANIZ ATION 05/06/2025 [facility] Source Comments (unrecognize d section and content) In the event this informatio n is protected by the Federal Confidentiality of Alcohol and Drug Abuse Patient Records regulations: The Federal rules restrict any use of the information to criminally investigate or prosecute any alcohol or drug abuse patient.[facility] the event this information is protected by the Federal Confidentiality of Alcohol and Drug Abuse Patient Records regulations: The Federal rules restrict any use of the information to criminally investigate or prosecute any alcohol or drug abuse patient.[facility] Hospital[facility] the event this information is protected by the Federal Confidentiality of Alcohol and Drug Abuse Patient Records regulations: The Federal rules restrict any use of the information to criminally investigate or prosecute any alcohol or drug abuse patient.[facility] Hospital[facility] the event this information is protected by the Federal Confidentiality of Alcohol and Drug Abuse Patient Records regulations: The Federal rules restrict any use of the information to criminally investigate or prosecute any alcohol or drug abuse patient.[facility] Hospital[facility] the event this information is protected by the Federal Confidentiality of Alcohol and Drug Abuse Patient Records regulations: The Federal rules restrict any use of the information to criminally investigate or prosecute any alcohol or drug abuse patient.[facility] Hospital[facility] the event this information is protected by the Federal Confidentiality of Alcohol and Drug Abuse Patient Records regulations: The Federal rules restrict any use of the information to criminally investigate or prosecute any alcohol or drug abuse patient.[facility] Hospital[facility] the event this information is protected by the Federal Confidentiality of Alcohol and Drug Abuse Patient Records regulations: The Federal rules restrict any use of the information to criminally investigate or prosecute any alcohol or drug abuse patient.[facility] Hospital[facility] the event this information is protected by the Federal Confidentiality of Alcohol and Drug Abuse Patient Records regulations: The Federal rules restrict any use of the information to criminally investigate or prosecute any alcohol or drug abuse patient.[facility] HospitalIn the event this information is protected by the Federal Confidentiality of Alcohol and Drug Abuse Patient Records regulations: The Federal rules restrict any use of the information to criminally investigate or prosecute any alcohol or drug abuse patient.[facility] Reason for Visit (unrecogniz ed section and content) Reason Comments Vasectomy-1 Reason Comments Orders Reason Comments Cough Cough, ST and ADAMS x 5 days Reason Comments Results Reason Comments Follow Up Reason Comments Rx updated, but not sent to pharmacy Reason Comments ADD/ADHD Care Teams (unrecognized sec tion and content) Congressional Representative Relationship Specialty Start Date End Date Tammy Fowler MD [address] [place], [place] [phone] PCP - General Family Practice 10/04/16 Congressional Representative Relationship Specialty Start Date End Date Tammy Fowler MD [address] [place], [place] [id number] PCP - General Family Medicine 10/04/16 Congressional Representative Relationship Specialty Start Date End Date Tammy Fowler MD [address] [place], [place] [phone] PCP - General Family Medicine 10/04/16 Congressional Representative Relationship Specialty Start Date End Date Tammy Fowler MD [address] [facility] [place] [address] PCP - General Family Medicine 10/04/16 Congressional Representative Relationship Specialty Start Date End Date Tammy Fowler MD [address] [facility] [place], [place] [id number] PCP - General Family Medicine 10/04/16 Congressional Representative Relationship Specialty Start Date End Date Tammy Fowler MD [address] [facility] [place] [address] PCP - General Family Medicine 10/04/16 Congressional Representative Relationship Specialty Start Date End Date Tammy Fowler MD [address] [facility] [place], [place] [id number] PCP - General Family Medicine 10/04/16 Congressional Representative Relationship Specialty Start Date End Date Tammy Fowler MD [address] [facility] [place], [place] [id number] PCP - General Family Medicine 10/04/16 Sybil Haley APRN.DIRECTOR BLOOD BANK [address] [facility] [address] Final Installer Inspector Family Medicine 10/12/24 Cinda Caldera APRN.DIRECTOR BLOOD BANK [address] [facility] [place] [address] Final Installer Inspector Family Medicine 10/12/24 Team Status: Active Member Role Status Dates No Primary Care Physician Family Provider Active Dr. Tammy Fowler MD Primary Care Provider Active Team Status: Inactive Member Role Status Dates Dr. Tammy Fowler MD Primary Care Provider Active Start: March 26, 2025 End: March 26, 2025 Linsey Vaughn NP-C Attending Provider Active Start: March 26, 2025 [...] May 04, 2025 End: May 04, 2025 Team Status: Inactive Member Role/Relationship Status Dates Dr. Tammy Fowler MD Primary Care Provider Active Start: May 01, 2025 End: May 01, 2025 Dr. Lee Gentile MD Attending Provider Active Sta rt: May 01, 2025 End: May 01, 2025 Dr. Lee Gentile MD Emergency Provider Active Sta rt: May 01, 2025 End: May 01, 2025 Team Status: Inactive Member Role/Relationship Status Dates Dr. Tammy Fowler MD Primary Care Provider Active Start: May 09, 2025 End: May 09, 2025 Dr. Lee Gentile MD Emergency Provider Active Sta rt: May 09, 2025 End: May 09, 2025 Goals (unrecognized section and content) Goals [...] BE BASED ON THE PRIMARY CLINICAL RECORDS. [facility]. provides no warranty or guarantee of the accuracy or completeness of information in this document.
== END 2025-05-09 16:27 | disposition home or self-care (01) ==
PROVIDERS: PCP Family Medicine; Visit Provider Emergency Medicine
DX: Z23 Encounter for immunization (principal)
CPT/HCPCS: 90675

== ENCOUNTER 2025-05-16 15:44 | Outpatient (CLI) | payer OTHER, SELFPAY ==
[2025-05-16 15:45] VITALS: BP 134/77; PULSE 62; RESP 16; O2SAT 97
--- OUTSIDE RECORDS SUMMARY | 2025-05-16 16:05 | XMS RPT_ITS | CCD ---
Author Organization [facility] Care Team Providers Care Financial Services Officer Name Role Phone Tammy Fowler MD Primary Care Provider Tammy Fowler MD Primary Care Provider Tera INDUSTRIAL RELATIONS ANALYST.Sybil ALAS Unavailable Werner INDUSTRIAL RELATIONS ANALYST.Cinda ALAS Unavailable Dr. Tammy Fowler MD Primary Care Provider Jose ORTIZCLinsey Attending Provider Jose KID CLUB ATTENDANTTamyCLinsey Referring Provider [phone] LINSEY VAUGHN Referring Unavailable TAMMY FOWLER Primary Care Unavailable TAMMY FOWLER Primary Care Unavailable LINSEY VAUGHN Attending Unavailable CINDA CALDERA Attending Unavailable TAMMY FOWLER Primary Care Unavailable CINDA CALDERA Attending Unavailable TAMMY FOWLER Primary Care Unavailable Dr. Lee Gentile MD Emergency Provider Dr. Lee Gentile MD Attending Provider Dr. Lee Gentile MD Attending Provider Lee Gentile Attending Unavailable Tammy Fowler Primary Care Unavailable Lee Gentile Attending Unavailable Tammy Fowler Primary Care Unavailable Lee Gentile Attending Unavailable Tammy Fowler Primary Care Unavailable Linsey Vaughn Referring Unavailable Tammy Fowler Primary Care Unavailable Linsey Vaughn Attending Unavailable Medications Current [...] on above: Take 1 capsule by mo [facility] two times a day for 7 days. [...] Comment on above: [facility] naproxen 500 mg oral tablet (5 sources) Nonsteroidal Anti-inflammatory Drug Start: 10-13-20 take [...] vaccination course; Translations: [Encounter for immunization] Onset: 05-11-2025 05-01-2025 Episodic Open wounds of extremities (9 [...] Department Summary on 05-01-2025 Emergency Department Summary [facility] Medical Records Department [address] [place] [address] Emergency Department Summary 05/01/25 MR#: [id number] Acct: [id number] Name: DENTON JOLLEY Rep #: [id number] : 1995 29 From: Lee Gentile MD [...] symptoms: No Recent Illness/Hospitalizati on: No PFSH [facility] Home Medications ???Medication ???Instructions ???Recorded ???Last Taken [...] 2 Days for wound check Print Language: South Sudanese Disposition Disposition: Home, Self Care What to do if you have Problems For any increased pain, shortness of breath, bleeding, nausea or vomiting, chest pain, or any unexpected problems, contact your Primary Care Provider. C (more content not included)... Normal [facility] 03-26-2025 [facility] Office Visit (UCWSTR ) DENTON JOLLEY ([id number]) 1995 M Date Time Provider Department 03/26/25 7:30 AM LINSEY VAUGHN [facility] During your visit today, we recorded the following information about you: Temperature Pulse Respiration Blood pressure 97.4 degrees 54/minute 18/minute 133/82 Weight 83.8 kg Linsey Vaughn APRN.[facility] 03/26/2025 9:23 AM Signed [facility] [...] or do not improve. and Recording using [employer] software for draft documentation of the visit was discussed with the patient/authorized sales representative printing paper; all questions welcomed and answered. Patient/authorized sales representative printing paper agreed to proceed MDM Procedures Allergies As of Date: 03/26/2025 (No Known Allergies) Date Reviewed: 03/26/2025 Reviewed by: Latanya Zeng MA - Fully Assessed Reason for Visit: Cough [28] Cmt: Head and chest congestion x3 weeks Primary Visit Diagnosis:Acute cough [R05.1] Other Visit Diagnosis:Rhinosinusi tis [J32.9] Order(s):XR CHEST 2V FRONTAL/LAT [[id number]] Order #: [id number] FUTURE doxycycline (VIBRA-TABS) 100 mg tabletTake 1 [...] Encounter Status:Closed by LINSEY VAUGHN on 03/26/25 [facility] 03-26-2025 [facility] Telephone (UCWSTR) DENTON JOLLEY ([id number]) 1995 Date Time Provider Department 03/26/25 LINSEY VAUGHN [facility] During your visit today, we recorded the following information about you: Linsey Vaughn APRN.[facility] 03/26/2025 9:24 AM Signed Please call let patient know he is negative for chest x-ray. Let patient know I called in doxycycline twice a day for a week for his sinus infection. If his symptoms do not improve follow-up with primary care Linsey Vaughn APRN.[facility] 03/26/2025 10:27 AM Signed Called back [...] Status:Closed by LINSEY VAUGHN on 03/26/25 Normal [facility] Chest PA and Lateralon 03-26 Chest PA and Lateral [facility] Imaging Services [address] [place] [id number] Chest PA and Lateral MR#: [id number] Acct: [id number] Name: DENTON JOLLEY Rep #: [id number] : 1995 M 29 From: Tyrel warren MD PCP: Dr. Tammy Fowler MD Status: REG CLI Study: Chest PA and Lateral Date of Exam: 03/26/25 Exam# [id number] Ordering Dr: Linsey Vaughn NP PROCEDURE: CHEST PA AND LATERAL 03/26/2025 REASON FOR EXAM: COUGH TECHNIQUE: Frontal and lateral views of the chest. COMPARISON: None FINDINGS: Hardware: None Heart: The heart size is normal. Mediastinum: The mediastinal contour is unremarkable. Lungs: The lungs are clear. Bones: The bones are unremarkable. RAD/Chest PA and Lateral IMPRESSION: NEGATIVE CHEST Reading Location: [facility] CC: SUSU Vaughn; Dr. Tammy Fowler MD Foil Wrapper: Signed Normal [facility] CNOVon 01-07-2025 CNOV Office Visit (FAMPWS ) DENTON JOLLEY ([id number]) 1995 M Date Time Provider Department 01/07/25 4:20 PM CINDA CALDERA During your visit today, we recorded the following information about you: Temperature Pulse Blood pressure Weight 97.8 degrees 68/minute 140/78 85.3 kg Cinda Caldera APRN.CLIENT SPECIALIST 01/07/2025 4:52 PM Signed This is a 29 year old male who presents today with: Patient presents with: ADD/ADHD HISTORY OF PRESENT ILLNESS: Denton Jolley is a 29 year old male. Patient presents with: ADD/ADHD [place] like fluoxetine just numbed him out. Behavior [...] daily 2) DME- BP cuff sent to [employer] [facility] store 3) Send me 3 BP [...] hyperactivity disorder) (more content not included)... Normal [facility] 07-16-2024 [facility] Telephone (FAMWS) DENTON JOLLEY ([id number]) 1995 Date Time Provider Department 07/16/24 TAMMY FOWLER [facility] During your visit today, we recorded the following information about you: Yoselin Dietrich 07/16/2024 3:56 PM Signed Patient said he was told his rx fluoxetine 40 mg was sent to [facility]. It was updated in chart, but not sent. He would like a call back at [phone] when sent. Tammy Fowler MD 07/16/2024 4:20 PM Signed Sorry sent Ej Faria MA 07/16/2024 4:33 PM Signed Called and left generic message on that Rx has been sent to Pharmacy as requested. If questions to contact office and speak with Triage Nurse. Ej Faria MA Allergies As of Date: 07/16/2024 (No Known Allergies) Date Reviewed: 06/11/2024 Reviewed by: Cinda Caldera APRN.[facility] - Fully Assessed Reason for Visit: Rx [...] Encounter Status:Closed by EJ FARIA [facility] DENT[facility]OL[facility] ([id number]) 1995 M Date Time Provider Department 07/16/24 CINDA CALDERA INTMWS During your visit today, we recorded the following information about you: Vanessa Soria LPN 07/16/2024 2:29 PM Signed Patient is wanting to increase to Fluoxetine to 40mg, feels he has leveled out, not really effects anymore. Asking for new RX to go to [facility]. Denton took his last pill this AM, [...] Date Reviewed: 06/11/2024 Reviewed by: Cinda Caldera APRN.CLIENT SPECIALIST - Fully Assessed Visit Diagnoses:Anxiety with depression [...] Encounter Status:Closed by LORI WILKES on 07/16/24 [facility] CNOVon 06-11-2024 CNOV Office Visit (FAMPWS ) DENTON JOLLEY ([id number]) 1995 M Date Time Provider Department 06/11/24 3:40 PM CINDA CALDERA FAMPWS During your visit today, we recorded the following information about you: Pulse Blood pressure Weight Height 68/minute 136/80 78.5 kg 1.829 m Cinda Caldera APRN.[facility] 06/11/2024 3:57 PM Signed This is a [...] Service: OFFICE/OUTPATIENT ESTABLISHED LOW MDM 20 MIN [[id number]] Disposition: Return in about 3 months (around 09/11/2024) for stress level. Follow-up and Disposition History for Encounter Date Provider Department Center 06/11/2024 [id number]-AJEERAOLIVER CALDERA*FAMPWS [facility] Encounter Status:Closed by CINDA CALDERA on 06/11/24 [facility] CBC W Auto Differential pane l (Bld)on 02-28-2024 Basophils (Bld) [#/Vol] [facility] Basophils/100 WBC (Bld) 0.2 % [facility] Differential cell count method Nom (Bld) Auto [facility] Eosinophils (Bld) [#/Vol] 0.10 10*3/uL [facility] Eosinophils/100 WBC (Bld) 1.1 % [facility] Erythrocyte distribution width (RBC) [Ratio] 11.9 % 11.5 - 15.0 % [facility] Hematocrit (Bld) [Volume fraction] 46.1 % 39.0 - 51.0 % [facility] Hemoglobin (Bld) [Mass/Vol] 16.0 g/dL 13.0 - 17.0 g/dL [facility] Immature granulocytes (Bld) [#/Vol] 0.03 10*3/uL [facility] Immature granulocytes/100 WBC (Bld) 0.3 % [facility] Lymphocytes (Bld) [#/Vol] 3.16 10*3/uL [facility] Lymphocytes/100 WBC (Bld) 35.0 % [facility] MCH (RBC) [Entitic mass] 30.4 pg 26.0 - 34.0 pg [facility] MCHC (RBC) [Mass/Vol] 34.7 g/dL 30.5 - 36.0 g/dL [facility] MCV (RBC) [Entitic vol] 87.6 fL 80.0 - 100.0 fL [facility] Monocytes (Bld) [#/Vol] 0.77 10*3/uL [facility] Monocytes/100 WBC (Bld) 8.5 % [facility] Neutrophils (Bld) [#/Vol] 4.94 10*3/uL [facility] Neutrophils/100 WBC (Bld) 54.9 % [facility] Nucleated RBC (Bld) [#/Vol] [facility] Nucleated RBC/100 WBC (Bld) [Ratio] 0.0 % /100 WBC [facility] Platelet mean volume (Bld) [Entitic vol] 10.5 fL 9.0 - 12.7 fL [facility] Platelets (Bld) [#/Vol] 226 10*3/uL [facility] RBC (Bld) [#/Vol] 5.26 10*6/uL 4.20 - 6.0 0 m/uL [facility] WBC (Bld) [#/Vol] 9.02 10*3/uL [facility] ALLIED HEALTHon 07-24-2020 ALLIED HEALTH HNO ID: [id number] Author: Lilly (Rt) Mayi Tarango Service: Radiology Author Type: Mold Engraver Type: Allied Health Filed: 07/23/2020 11:27 PM [...] July 23, 2020 11:26 PM [facility] ED NOTEon 07-24-2020 ED NOTE HNO ID: [id number] Author: Michelle Robison RN Service: ? Author Type: Registered Nurse Type: ED Notes Filed: 07/24/2020 12:07 AM Note Text: dr glez at bedside to talk with pt regarding results and plan of care. [facility] ED NOTE HNO ID: [id number] Author: Michelle Robison RN Service: ? Author Type: Registered Nurse Type: ED Notes Filed: 07/24/2020 12:07 AM Note Text: pt given dc instructions and follow up care he verbalized understanding. [facility] ED NOTE HNO ID: [id number] Author: Michelle Robison RN Service: ? Author Type: Registered Nurse Type: ED Notes Filed: 07/24/2020 12:01 AM Note Text: pt given air cast and crutches, [facility] ED NOTE HNO ID: [id number] Author: Michelle Robison RN Service: ? Author Type: Registered Nurse Type: ED Notes Filed: 07/23/2020 11:16 PM Note Text: xr at bedside [facility] ED NOTE HNO ID: [id number] Author: Michelle Robison RN Service: ? Author Type: Registered Nurse Type: ED Notes Filed: 07/23/2020 11:07 PM Note Text: dr glez in room [facility] ED NOTE HNO ID: [id number] Author: Michelle (Rn) MILAD Robison Service: ? Author Type: Registered Nurse Type: ED Notes Filed: 07/23/2020 11:02 PM Note Text: pt offered ice pack [facility] ED PROV NOTEon 07-24-2020 ED PROV NOTE HNO ID: [id number] Author: Lavelle Glez MD Service: ? Author [...] ankle. PAST MEDICAL HISTORY Diagnosis Date - [facility] - PAST MEDICAL HISTORY OF [...] cast and give crutches, follow-up with orthopedic sectionizer PRN ED Course / Clinical Impression Clinical Impressions as of Jul 23 2344 Right ankle sprain Acute right ankle pain MDM / Disposition / Plan MDM SIGNATURE: MD Lavelle Zaragoza MD 07/23/20 2236 [facility] XR ANKLE 3V AP/LAT/OBL RTon [...] Right foot: Negative for fracture or malalignment. Foil Wrapper: PSCB Transcribe Date/Time: Jul 23 2020 11:47P Dictated by : JULIUS PENNY MD This examination was interpreted and the report reviewed and electronically signed by: JULIUS PENNY MD on Jul 23 2020 11:49PM EST [id number] [facility] XR FOOT 3V AP/LAT/OBL RTon 0 07-24-2020 XR FOOT 3V AP/LAT/OBL RT * * *Final Report* * * DATE OF EXAM: Jul 23 2020 11:24PM MDX [id number] - XR FOOT 3V AP/LAT/OBL RT / PROCEDURE REASON: Foot trauma, [place] neg, initial exam * * * * [...] Right foot: Negative for fracture or malalignment. Foil Wrapper: EDMUND Transcribe Date/Time: Jul 23 2020 11:47P Dictated by : JULIUS PENNY MD This examination was interpreted and the report reviewed and electronically signed by: JULIUS PENNY MD on Jul 23 2020 11:49PM EST [id number] Normal [facility] Vital Signs Date Time Vital Sign Value Performing Clinician Facility 05-09-2025 15:39-0400 Body height 182.[address] Tammy Fowler MD Work Phone: [facility] 05-09-2025 15:39-0400 Body mass index (BMI) [Ratio] 26.4 kg/m2 Dr. Tammy Fowler MD Work Phone: [facility] 05-09-2025 15:39-0400 Body temperature 96.7 [degF] Dr. Tmamy Fowler MD Work Phone: [facility] 05-09-2025 15:39-0400 Body weight 88.[address] Tammy Fowler MD Work Phone: [facility] 05-09-2025 15:39-0400 Diastolic blood pressure 79 mm[Hg] Dr. Tammy Fowler MD Work Phone: [facility] 05-09-2025 15:39-0400 Heart rate 60 /min Dr. Tammy Fowler MD Work Phone: 6(828)439-207877 [place] [address] 05-09-2025 15:39-0400 Respiratory rate 18 /min Dr. Tammy Fowler MD Work Phone: 8(822)460-204777 [place] [address] 05-09-2025 15:39-0400 SaO2% (BldA) [Mass fraction] 97 % Dr. Tammy Fowler MD Work Phone: 2(787)554-284677 [place] [address] 05-09-2025 15:39-0400 Systolic blood pressure 144 mm[Hg] Dr. Tammy Fowler MD Work Phone: 1(424)765-144677 [place] [address] 05-04-2025 16:27-0400 Body mass index (BMI) [Ratio] 25.7 kg/m2 Dr. Tammy Fowler MD Work Phone: 8(614)192-208377 [place] [address] 05-04-2025 16:27-0400 Body weight 86.[address] Tammy Fowler MD Work Phone: 8(245)600-101477 [place] [address] 05-04-2025 15:45-0400 Body height 182.[address] Tammy Fowler MD Work Phone: 5(910)181-817777 [place] [address] 05-04-2025 15:45-0400 Diastolic blood pressure 64 mm[Hg] Dr. Tammy Fowler MD Work Phone: 5(765)634-822577 [place] [address] 05-04-2025 15:45-0400 Heart rate 59 /min Dr. Tammy Fowler MD Work Phone: 6(914)777-981677 [place] [address] 05-04-2025 15:45-0400 Respiratory rate 16 /min Dr. Tammy Fowler MD Work Phone: 1(948)421-368877 [place] [address] 05-04-2025 15:45-0400 SaO2% (BldA) [Mass fraction] 97 % Dr. Tammy Fowler MD Work Phone: 6(578)960-793377 [place] [address] 05-04-2025 15:45-0400 Systolic blood pressure 140 mm[Hg] Dr. Tammy Fowler MD Work Phone: 7(378)945-527577 [place] [address] 05-04-2025 15:44-0400 Body temperature 97.1 [degF] Dr. Tammy Fowler MD Work Phone: 5(675)889-390117 [place] [address] 05-01-2025 21:03-0400 Body temperature 97.9 [degF] Dr. Tammy Fowler MD Work Phone: 5(091)005-597077 [place] [address] 05-01-2025 21:03-0400 Diastolic blood pressure 77 mm[Hg] Dr. Tammy Fowler MD Work Phone: 6(699)342-179577 [place] [address] 05-01-2025 21:03-0400 Heart rate 75 /min Dr. Tammy Fowler MD Work Phone: 2(479)984-298777 [place] [address] 05-01-2025 21:03-0400 Respiratory rate 14 /min Dr. Tammy Fowler MD Work Phone: 3(415)052-445677 [place] [address] 05-01-2025 21:03-0400 SaO2% (BldA) [Mass fraction] 100 % Dr. Tammy Fowler MD Work Phone: 6(440)876-013677 [place] [address] 05-01-2025 21:03-0400 Systolic blood pressure 131 mm[Hg] Dr. Tammy Fowler MD Work Phone: 9(298)609-358577 [place] [address] 05-01-2025 19:09-0400 Body height 182.[address] Tammy Fowler MD Work Phone: 9(941)533-927477 [place] [address] 05-01-2025 19:09-0400 Body mass index (BMI) [Ratio] 25.2 kg/m2 Dr. Tammy Fowler MD Work Phone: 1(485)909-679077 [place] [address] 05-01-2025 19:09-0400 Body weight 84.[address] Tammy Fowler MD Work Phone: 0(686)390-714677 [place] [address] 01-07-2025 16:16-0500 Body mass index (BMI) [Ratio] 25.5 kg/m2 Cinda Caldera APRN.CLIENT SPECIALIST Work Phone: 1(369)529-758842 [place] [address] 01-07-2025 16:16-0500 Body temperature 97.81 [degF] Cinda Caldera APRN.CLIENT SPECIALIST Work Phone: 5(438)414-597342 [place] [address] 01-07-2025 16:16-0500 Body weight 85.28 kg Cinda Suppan INDUSTRIAL RELATIONS ANALYST.CLIENT SPECIALIST Work Phone: [facility] 01-07-2025 16:16-0500 Diastolic blood pressure 78 mm[Hg] Cinda Suppan INDUSTRIAL RELATIONS ANALYST.CLIENT SPECIALIST Work Phone: [facility] 01-07-2025 16:16-0500 Heart rate 68 /min Cinda Suppan INDUSTRIAL RELATIONS ANALYST.CLIENT SPECIALIST Work Phone: [facility] 01-07-2025 16:16-0500 SaO2% (BldA) [Mass fraction] 100 % Cinda Suppan INDUSTRIAL RELATIONS ANALYST.CLIENT SPECIALIST Work Phone: [facility] 01-07-2025 16:16-0500 Systolic blood pressure 140 mm[Hg] Cinda Suppan INDUSTRIAL RELATIONS ANALYST.CLIENT SPECIALIST Work Phone: [facility] 06-11-2024 15:56-0400 Diastolic blood pressure 80 mm[Hg] Cinda Suppan INDUSTRIAL RELATIONS ANALYST.CLIENT SPECIALIST Work Phone: [facility] 06-11-2024 15:56-0400 Systolic blood pressure 136 mm[Hg] Cinda Suppan INDUSTRIAL RELATIONS ANALYST.CLIENT SPECIALIST Work Phone: [facility] 06-11-2024 15:43-0400 Body height 182.9 cm Cinda Suppan INDUSTRIAL RELATIONS ANALYST.CLIENT SPECIALIST Work Phone: [facility] 06-11-2024 15:43-0400 Body mass index (BMI) [Ratio] 23.46 kg/m2 Cinda Suppan INDUSTRIAL RELATIONS ANALYST.CLIENT SPECIALIST Work Phone: [facility] 06-11-2024 15:43-0400 Body weight 78.47 kg Cinda Suppan INDUSTRIAL RELATIONS ANALYST.CLIENT SPECIALIST Work Phone: [facility] 06-11-2024 15:43-0400 Heart rate 68 /min Cinda Suppan INDUSTRIAL RELATIONS ANALYST.CLIENT SPECIALIST Work Phone: [facility] 06-11-2024 15:43-0400 SaO2% (BldA) [Mass fraction] 98 % Cinda Suppan INDUSTRIAL RELATIONS ANALYST.CLIENT SPECIALIST Work Phone: [facility] 02-28-2024 16:17-0400 Body mass index (BMI) [Ratio] 22.51 kg/m2 Cinda Suppan INDUSTRIAL RELATIONS ANALYST.SALES AND TRAINING SPECIALIST Work Phone: [facility] 02-28-2024 16:17-0400 Body weight 75.3 kg Cinda Suppan INDUSTRIAL RELATIONS ANALYST.SALES AND TRAINING SPECIALIST Work Phone: [facility] 02-28-2024 16:17-0400 Diastolic blood pressure 76 mm[Hg] Cinda Suppan INDUSTRIAL RELATIONS ANALYST.SALES AND TRAINING SPECIALIST Work Phone: [facility] 02-28-2024 16:17-0400 Heart rate 58 /min Cinda Suppan INDUSTRIAL RELATIONS ANALYST.SALES AND TRAINING SPECIALIST Work Phone: [facility] 02-28-2024 16:17-0400 Respiratory rate 16 /min Cinda Suppan INDUSTRIAL RELATIONS ANALYST.SALES AND TRAINING SPECIALIST Work Phone: [facility] 02-28-2024 16:17-0400 SaO2% (BldA) [Mass fraction] 98 % Cinda Suppan INDUSTRIAL RELATIONS ANALYST.SALES AND TRAINING SPECIALIST Work Phone: [facility] 02-28-2024 16:17-0400 Systolic blood pressure 124 mm[Hg] Cinda Suppan INDUSTRIAL RELATIONS ANALYST.SALES AND TRAINING SPECIALIST Work Phone: [facility] 01-28-2024 07:31-0400 Body temperature 97.39 [degF] Mara Praisler-Wood INDUSTRIAL RELATIONS ANALYST.CLIENT SPECIALIST Work Phone: [facility] 01-28-2024 07:31-0400 Body weight 74.7 kg Mara Praisler-Wood INDUSTRIAL RELATIONS ANALYST.CLIENT SPECIALIST Work Phone: [facility] 01-28-2024 07:31-0400 Diastolic blood pressure 80 mm[Hg] Mara Praisler-Wood INDUSTRIAL RELATIONS ANALYST.CLIENT SPECIALIST Work Phone: [facility] 01-28-2024 07:31-0400 Heart rate 50 /min Mara Praisler-Wood INDUSTRIAL RELATIONS ANALYST.CLIENT SPECIALIST Work Phone: [facility] 01-28-2024 07:31-0400 Respiratory rate 16 /min Mara Praisler-Wood INDUSTRIAL RELATIONS ANALYST.CLIENT SPECIALIST Work Phone: [facility] 01-28-2024 07:31-0400 SaO2% (BldA) [Mass fraction] 98 % Mara Praisler-Wood INDUSTRIAL RELATIONS ANALYST.CLIENT SPECIALIST Work Phone: [facility] 01-28-2024 07:31-0400 Systolic blood pressure 122 mm[Hg] Mara Praisler-Wood INDUSTRIAL RELATIONS ANALYST.CLIENT SPECIALIST Work Phone: [facility] 11-11-2022 16:43-0500 Heart rate 68 /min [facility] Work Phone: 11-11-2022 16:43-0500 Respiratory rate 17 /min [facility] Work Phone: 11-11-2022 16:43-0500 SaO2% (BldA) [Mass fraction] 99 % [facility] Work Phone: 11-11-2022 15:29-0500 Body height 182.88 cm [facility] Work Phone: 11-11-2022 15:29-0500 Body mass index (BMI) [Ratio] 22.4 kg/m2 [facility] Work Phone: 11-11-2022 15:29-0500 Body temperature 98 [degF] [facility] Work Phone: 11-11-2022 15:29-0500 Body weight 74.84 kg [facility] Work Phone: 11-11-2022 15:29-0500 Diastolic blood pressure 70 mm[Hg] [facility] Work Phone: 11-11-2022 15:29-0500 Systolic blood pressure 134 mm[Hg] [facility] Work Phone: 05-22-2022 16:12-0400 Body height 182.9 cm Dereck Cano PA-C Work Phone: [facility] 05-22-2022 16:12-0400 Body temperature 99.39 [degF] Dereck Cano PA-C Work Phone: [facility] 05-22-2022 16:12-0400 Body weight 70.31 kg Dereck Cano PA-C Work Phone: [facility] 05-22-2022 16:12-0400 Diastolic blood pressure 86 mm[Hg] Dereck Cano PA-C Work Phone: [facility] 05-22-2022 16:12-0400 Heart rate 78 /min Dereck Cano PA-C Work Phone: [facility] 05-22-2022 16:12-0400 Respiratory rate 12 /min Dereck Cano PA-C Work Phone: [facility] 05-22-2022 16:12-0400 SaO2% (BldA) [Mass fraction] 100 % Dereck Cano PA-C Work Phone: [facility] 05-22-2022 16:12-0400 Systolic blood pressure 136 mm[Hg] Dereck Cano PA-C Work Phone: [facility] Encounters Encounter Date Encounter Type Care Provider Facility Start: 05-09-2025 End: 05-09-2025 Emergency department patient visit Dr. Tammy Fowler MD Work Phone: -Emergency Department Work Phone: Start: 05-09-2025 End: 05-09-2025 ambulatory [facility] Facility:[facility] Start: 05-04-2025 End: 05-04-[address] Tammy Fowler MD Work Phone: -Emergency Department Start: 05-04-2025 End: 05-04-[address] Lee Gentile MD -Emergency Department Work Phone: Start: 05-04-2025 End: 05-04-2025 ambulatory [facility] Facility:[facility] Start: 05-01-2025 End: 05-01-2025 Emergency department patient visit Dr. Tammy Fowler MD Work Phone: -Emergency Department Work Phone: Start: 03-26-2025 End: 03-26-2025 Patient encounter procedure Linsey Vaughn KID CLUB ATTENDANT-C -Radiology [facility] Work Phone: Start: 03-26-2025 End: 03-26-[address] Tammy Fowler MD Work Phone: [facility] Work Phone: Start: 03-26-2025 End: 03-26-2025 ambulatory Linsey Vaughn Facility:[facility] Start: 01-07-2025 End: 01-07-2025 Office outpatient visit 15 minutes Cinda A Suppan INDUSTRIAL RELATIONS ANALYST.CLIENT SPECIALIST Work Phone: [facility] [facility] Comment on above: Elevated blood press ure reading without diagnosis of hypertension (Primary Dx); Screening for depression; Encounter for screening examination for other mental health and behavioral disorders; ADHD (attention deficit hyperactivity disorder), predominantly hyperactive impulsive type Start: 01-07-2025 End: 01-07-2025 ambulatory CINDA A SUPPAN Facility:[facility] Start: 07-16-2024 End: 07-16-2024 Telephone encounter Cinda A Suppan INDUSTRIAL RELATIONS ANALYST.CLIENT SPECIALIST Work Phone: [facility] [place] Comment on above: Rx updated, but not sent to pharmacy Start: 06-11-2024 End: 06-11-2024 Office outpatient visit 15 minutes Cinda A Suppan INDUSTRIAL RELATIONS ANALYST.CLIENT SPECIALIST Work Phone: [facility] Comment on above: Anxiety with depress ion (Primary Dx); Irritability Start: 06-11-2024 End: 06-11-2024 ambulatory CINDA A SUPPAN Facility:[facility] Start: 03-09-2024 Telephone encounter Cinda A Suppan INDUSTRIAL RELATIONS ANALYST.SALES AND TRAINING SPECIALIST Work Phone: [facility] Comment on above: Results Start: 02-28-2024 End: 02-28-2024 Office outpatient visit 15 minutes Cinda A Suppan INDUSTRIAL RELATIONS ANALYST.SALES AND TRAINING SPECIALIST Work Phone: [facility] Comment on above: Irritability (Primar y Dx); Anxiety with depression Start: 01-28-2024 End: 01-28-2024 Patient encounter procedure Mara Felder INDUSTRIAL RELATIONS ANALYST.CLIENT SPECIALIST Work Phone: [facility] Comment on above: Sinobronchitis (Prim kayy Dx); Middle ear effusion, left Start: 11-11-2022 End: 11-11-2022 Emergency department patient visit [facility] Start: 07-31-2022 Telephone encounter Dereck law PA-C Work Phone: Urology Comment on above: Orders Start: 05-22-2022 End: 05-22-2022 Patient encounter procedure Dereck Cano PA-C Work Phone: Urology Comment on above: Vasectomy evaluation (Primary Dx) Procedures Date Procedure Procedure Detail Performing Clinician Start: 03-26-2025 X-ray of chest, PA a nd lateral views Dr. Tammy Fowler MD Work Phone: Start: 01-07-2025 Adult depression scr eening assessment Cinda Caldera INDUSTRIAL RELATIONS ANALYST.BISHOP Work Phone: Start: 11-11-2022 Diagnostic radiograp hy of finger Start: 07-20-2019 Adult depression scr eening assessment Dereck Cano PA-C Work Phone: Plan of Treatment Date Care Activity Detail Author Start: 01-07-2026 Anxiety Screening Anxiety Screening [facility] Start: 01-07-2026 Depression Screening Depression Scre [facility] Start: 05-03-2025 Influenza vaccination Influenz a Vaccine (#1) [facility] Comment on above: Postponed from 07/05 (Declined at this time) Start: 05-01-2025 [facility] Start: 02-18-2025 End: 02-18-2025 Patient encounter procedure 02/18/2025 3:00 PM EDT Office Visit [facility] [address] [place], [place] [id number] Cinda Caldera APRN.CLIENT SPECIALIST [address] [place], [place] [id number] 6 week ADD medication follow up [facility] Comment on above: 6 week ADD medicatio n follow up Start: 07-05-2024 Covid-19 Vaccine () Covid-19 Vaccine () [facility] Start: 07-05-2024 Covid-19 Vaccine () Covid-19 Vaccine () [facility] Start: 07-05-2024 Influenza vaccination C [facility] Start: 02-28-2024 End: 05-29-2024 Cobalamin (Vitamin B12) [Mass/volume] in Serum or Plasma [facility] Comment on above: Expected: 02/28/2024 , Expires: 05/29/2024 Start: 02-28-2024 End: 05-29-2024 Comprehensive metabolic 2000 panel - Serum or Plasma [facility] Work Phone: Comment on above: Expected: 02/28/2024 , Expires: 05/29/2024 Start: 02-28-2024 End: 05-29-2024 LIPID PANEL, NONFASTING [facility] Comment on above: Expected: 02/28/2024 , Expires: 05/29/2024 Start: 02-28-2024 End: 05-29-2024 Magnesium [Mass/volume] in Serum or Plasma [facility] Comment on above: Expected: 02/28/2024 , Expires: 05/29/2024 Start: 02-28-2024 End: 05-29-2024 TESTOSTERONE, FREE AND TOTAL [facility] Comment on above: Expected: 02/28/2024 , Expires: 05/29/2024 Start: 02-28-2024 End: 05-29-2024 Thyrotropin [Units/volume] in Serum or Plasma [facility] Comment on above: Expected: 02/28/2024 , Expires: 05/29/2024 Start: 11-04-2023 Behavioral Health Screening Behavioral Health Screening [facility] Start: 11-04-2023 Depression Assessment Depression Ass essment [facility] Start: 07-05-2023 Covid-19 Vaccine () Covid-19 Vaccine () [facility] Start: 07-05-2023 Influenza vaccination Influenz a Vaccine (#1) [facility] Start: 07-05-2022 Influenza vaccination INFLUENZA (#1) [facility] Start: 11-04-2021 DEPRESSION ASSESSMENT DEPRESSION ASS ESSMENT [facility] Start: 07-20-2020 Adult depression screening assessment DEPRESSION SCREENING [facility] Start: 05-23-2017 Urine microalbumin profile [facility] Start: 2011 Anxiety Screening Anxiety Screening [facility] Start: 2011 Depression Screening Depression Scre ening [facility] Start: 2011 HEPATITIS C SCREENING HEPATITIS C [facility] Start: 2011 Hepatitis C screening Hepatitis C [facility] Start: 2011 HIV SCREENING HIV SCREENING [facility] Start: 2011 HIV screening HIV Screening [facility] Start: 06-17-1994 COVID-19 VACCINE (#1) COVID-19 VACCI NE (#1) [facility] Patient Education [facility] Work Phone: Patient referral [facility] Work Phone: Vasectomy uni/bi spx w/postop semen exams VASECTOMY Procedures Routine Vasectomy evaluation Ordered: 05/22/2022 [facility] Work Phone: Comment on above: Ordered: 05/22/2022 [facility] Immunizations Immunization Date Immunization Notes Care Provider Fa cili 05-09-2025 rabies vaccine, for intramuscular injection Dr. Tammy Fowler MD Work Phone: [facility] 05-04-2025 rabies vaccine, for intramuscular injection Dr. Tammy Fowler MD Work Phone: [facility] 05-01-[address] Meghana Fowler MD Work Phone: [facility] 05-01-2025 rabies vaccine, for intramuscular injection Dr. Tammy Fowler MD Work Phone: [facility] 05-27-2008 varicella virus vaccine Tony Cano PA-C Work Phone: [facility] Work Phone: 05-23-2007 Meningococcal, MCV4, unspecified conjugate formulation(groups A, C, Y and W-135) Dereck Cano PA-C Work Phone: [facility] Work Phone: 05-23-2007 tetanus toxoid, redu shana diphtheria toxoid, and acellular pertussis vaccine, adsorbed Dereck Cano PA-C Work Phone: [facility] Work Phone: 09-16-2003 influenza virus vaccine, unspecified formulation Dereck Cano PA-C Work Phone: [facility] 09-28-2002 influenza virus vaccine, unspecified formulation Dereck Cano PA-C Work Phone: [facility] 03-15-1999 diphtheria, tetanus toxoids and acellular pertussis vaccine Dereck Cano PA-C Work Phone: [facility] 03-15-1999 measles, mumps and rubella virus vaccine Dereck Cano PA-C Work Phone: [facility] 03-15-1999 poliovirus vaccine, inactivated Dereck Cano PA-C Work Phone: [facility] 10-18-1997 varicella virus vaccine Bran don Cano PA-C Work Phone: [facility] 01-23-1995 hepatitis B vaccine, pediatric or pediatric/adolescent dosage Dereck Cano PA-C Work Phone: [facility] 12-26-1994 diphtheria, tetanus toxoids and acellular pertussis vaccine Dereck Cano PA-C Work Phone: [facility] 12-26-1994 haemophilus influenz ae type b vaccine, conjugate unspecified formulation Cinda Caldera INDUSTRIAL RELATIONS ANALYST.SALES AND TRAINING SPECIALIST Work Phone: [facility] 12-26-1994 hepatitis B vaccine, pediatric or pediatric/adolescent dosage Cinda Suppjj INDUSTRIAL RELATIONS ANALYST.SALES AND TRAINING SPECIALIST Work Phone: [facility] 12-26-1994 measles, mumps and rubella virus vaccine Dereck Cano PA-C Work Phone: [facility] 06-06-1994 diphtheria, tetanus toxoids and acellular pertussis vaccine Dereck Cano PA-C Work Phone: [facility] 06-06-1994 haemophilus influenz ae type b vaccine, conjugate unspecified formulation Cinda Suppan INDUSTRIAL RELATIONS ANALYST.SALES AND TRAINING SPECIALIST Work Phone: [facility] 06-06-1994 poliovirus vaccine, inactivated Dereck Cano PA-C Work Phone: [facility] 04-12-1994 diphtheria, tetanus toxoids and acellular pertussis vaccine Dereck Cano PA-C Work Phone: [facility] 04-12-1994 haemophilus influenz ae type b vaccine, conjugate unspecified formulation Cinda Suppan INDUSTRIAL RELATIONS ANALYST.SALES AND TRAINING SPECIALIST Work Phone: [facility] 04-12-1994 poliovirus vaccine, inactivated Dereck Cano PA-C Work Phone: [facility] 02-15-1994 diphtheria, tetanus toxoids and acellular pertussis vaccine Dereck Cano PA-C Work Phone: [facility] 02-15-1994 haemophilus influenz ae type b vaccine, conjugate unspecified formulation Cinda Suppan INDUSTRIAL RELATIONS ANALYST.SALES AND TRAINING SPECIALIST Work Phone: [facility] 02-15-1994 poliovirus vaccine, inactivated Dereck Cano PA-C Work Phone: [facility] 01-17-1994 hepatitis B vaccine, pediatric or pediatric/adolescent dosage Dereck Cano PA-C Work Phone: [facility] 1993 hepatitis B vaccine, pediatric or pediatric/adolescent dosage Dereck Cano PA-C Work Phone: [facility] Payers Date Payer Category Payer Self-pay [id number] 2021 Private Health Insurance KOFFI SANTOS [id number] 2021-Present [phone] [facility] [id number] [place] [id number] Open Access [id number] 2021 Private Health Insurance [id number] 2021 Private Health Insurance [id number] 1994 Unknown [id number] Unknown [id number] Unknown [id number] Unknown [id number] Unknown [id number] Social History Date Type Detail Facility Start: 03-14-2012 End: 05-01-2025 Tobacco smoking status NHIS Never smoked tobacco [facility] Start: 05-22-2022 End: 01-07-2025 Alcohol intake Current drinker of alcohol (finding) [facility] Start: 04-07-2018 History SDOH Alcohol Comment 1-2 beers per month [facility] Start: 1995 Sex Assigned At Not on file C [facility] Start: 05-12-2022 End: 05-22-2022 Exposure to SARS-CoV-2 (event) Not sure [facility] Start: 03-14-2012 End: 01-28-2024 Tobacco use and exposure Smokeless tobacco non-user [facility] Work Phone: Start: 11-11-2022 Tobacco smoking stat us ALIS Unknown if ever smoked [facility] Work Phone: Start: 1995 Sex Assigned At Male [facility] Start: 01-28-2024 End: 02-28-2024 History of Social function [facility] Start: 01-28-2024 End: 02-28-2024 Tobacco use panel [facility] Adult Depression Screening Assessment 0 [facility] Clinical Notes 09-11-2010 to 05-01-2025 Note Date & Type Note Facility 05-01-2025 Discharge summary [facility] 05-01-2025 Discharge summary Note Date/Time May 01, 2025 8:16pm [facility] Medical Records Department [address] [place] [address] Emergency Department Summary 05/01/25 MR#: [id number] Acct: [id number] Name: DENTON JOLLEY Rep #:[id number] : 1995 29 From: Lee Gentile [...] 2 Days for wound check Print Language: South Sudanese Disposition Disposition: Home, Self Care What to do if you have Problems For any increased pain, shortness of breath, bleeding, nausea or vomiting, chestpain, or any unexpected problems, contact your Primary Care Provider. Call [facility] ([phone]) or report to the closest Emergency Room. Call 911 if necessary. 05/01/252015 <Electronically signed by Lee Gentile MD> Cosigner Signature (if applicable): CC: Dr. Tammy Fowler MD ~ Signed [facility] Work Phone: [phone]) 159-711105-23-2025 NoteHNO ID: [id number] Author: LINSEY VAUGHN APRN.CLIENT SPECIALIST Service: ? Author Type: Nurse Practitioner Type: Progress Notes Filed: 03/26/2025 09:23 Note Text: [facility] Subjective Denton Jolley is a [...] or do not improve. and Recording using [employer] software for draft documentation of the visit was discussed with the patient/authorized sales representative printing paper; all questions welcomed and answered. Patient/authorized sales representative printing paper agreed to proceed [facility] Radiology Diagnostic study note [facility] Imaging Services [address] [place], [place] [id number] Chest PA and Lateral MR#: [id number] Acct: [id number] Name: DENTON JOLLEY Rep #: [id number] : 1995 M 29 From: Francisco Osborn MD PCP: Dr. Tammy Fowler MD Status: REG C JAMAL Study:Chest PA and Lateral Date of Exam: 03/26/25 Exam# [id number] Ordering Dr: Do zeynep Vaughn PROCEDURE: CHEST PA AND LATERAL 03/26/2025 REASON FOR EXAM: COUGH TECHNIQUE: Frontal and lateral views of the chest. COMPARISON: None FINDINGS: Hardware: None Heart: The heart size is normal. Mediastinum: The mediastinal contour is unremarkable. Lungs: The lungs are clear. Bones: The bones are unremarkable. RAD/Chest PA and Lateral IMPRESSION: NEGATIVE CHEST Reading Location: [place] [address] CC: SUSU Vaughn; Dr. Tammy Fowler MD ~ Foil Wrapper: Signed [facility]03-06-2025 Instructions* Patient Instructions* Cinda Caldera APRN.CNP - 01/07/2025 4:50 PM EST 1) Strattera 40 mg daily 2) DME- BP cuff sent to [employer] [facility] store 3) Send me 3 BP readings in 1 or 2 weeks [facility]2025 NoteHNO ID: [id number] Author: CINDA CALDERA APRN.BISHOP Service: ? Author Type: Nurse Practitioner Type: Progress Notes Filed: 01/07/2025 16:52 Note Text: This is a 29 year old male who presents today with: Patient presents with: ADD/ADHD HISTORY OF PRESENT ILLNESS: Denton Jolley is a 29 year old male. Patient presents with: ADD/ADHD [place] like fluoxetine just numbed him out. Behavior [...] as needed for worsening/no improvement. Cinda Caldera APRN.[facility]03-06-2025 History of Present illness Narrative* Cinda Caldera APRN.CLIENT SPECIALIST - 01/07/2025 4:21 PM EST This is a 29 year old male who presents today with: Patient presents with: ADD/ADHD HISTORY OF PRESENT ILLNESS: Denton Jolley is a 29 year old male. Patient presents with: ADD/ADHD [place] like fluoxetine just numbed him out. Behavior [...] improvement. Cinda Caldera APRN.BISHOP documented [facility] encounter[facility] Telephone encounter Note * Telephone Encounter - Ej Faria MA - 07/16/2024 4:32 PM EDT Called and left generic message on that Rx has been sent to Pharmacy as requested. If questions to contact office and speak with Triage Nurse. Ej Faria MA [facility]09-12-2024 Miscellaneous Notes* Telephone Encounter - Ej Faria MA - 07/16/2024 4:32 PM EDT Called and left generic message on that [...] [facility] It was updated in chart, but not sent. He would like a call back at [phone] when sent. documented in this encounterS[facility]-2024 Telephone encounter Note * Telephone Encounter - Tammy Fowler MD - 07/16/2024 4:20 PM EDT Sorry sent [facility]09-12-2024 Telephone encounter Note* Telephone Encounter - Yoselin Dietrich - 07/16/2024 3:54 PM EDT Patient said he was told his rx fluoxetine 40 mg was sent to [facility]. It was updated in chart, but not sent. He would like a call back at [phone] when sent. [facility]09-12-2024 Telephone encounter Note* Telephone Encounter - Lori Wilkes MA - 07/16/2024 3:08 PM EDT Spoke with pt and advised needed a one moth medication follow up. He will call back when he knows his 's schedule. Lori Wilkes MA [facility]09-12-2024 Miscellaneous Notes* Telephone Encounter - Lori Wilkes [...] later. Vanessa Soria LPN documented in this encounterS[facility]09-12-2024 Telephone encounter Note * Telephone Encounter - Tammy Fowler MD - 07/16/2024 2:34 PM EDT Rx sent. Please schedule follow up with one of us [facility]09-12-2024 Telephone encounter Note* Telephone Encounter - Vanessa Soria LPN - 07/16/2024 2:26 PM EDT Patient is wanting to increase to Fluoxetine to 40mg, feels he has leveled out, not really effects anymore. Asking for new RX to go to [place]. Denton took his last pill this AM, asking if RX could go today, Patient will check with pharmacy later. Vanessa Soria LPN [facility]08-08-2024 Instructions* Patient Instructions* Cinda Caldera APRN.CNP - 06/11/2024 3:57 PM EDT 1) Increase fluoxetine to 20 mg daily 2) Follow up in 3 months documented in this encounterS[facility]08-08-2024 NoteHNO ID: [id number] Author: CINDA CALDERA APRN.CNP Service: ? Author [...] as needed for worsening/no improvement. Cinda Caldera APRN.[facility]08-08-2024 History of Present illness Narrative* Cinda Caldera APRN.[facility] - 06/11/2024 3:47 PM EDT This [...] OF Comment: right hand 2002: TONSILLECTOMY PRIMARY/SECONDARY <AGE 10 ALLERGIES Patient has [...] as needed for worsening/no improvement. Cinda Caldera APRN.CLIENT SPECIALIST documented in this encounterS[facility]05-08-2024 Telephone encounter Note * Telephone Encounter - Whit Bradford LPN - 03/11/2024 11:49 AM EDT Patient did review this lab on Mychart. [facility]05-08-2024 Miscellaneous Notes* Telephone Encounter - Whit Bradford [...] labs were also normal. documented in this encounterS[facility]05-06-2024 Telephone encounter Note * Telephone Encounter - Kristin Correa OCCA - 03/09/2024 1:57 PM EDT TC no answer. Left VM to return call. EVELIO Jimenes [facility]05-06-2024 Telephone encounter Note* Telephone Encounter - Cinda Caldera APRN.CNS - 03/09/2024 1:40 PM EDT Please let patient know that his testosterone levels came back and they are completely normal. No further labs needed. He is in high normal range. All other labs were also normal. [facility]04-26-2024 Instructions* Patient Instructions* Cinda Caldera APRN.CNS - 02/28/2024 4:52 PM EDT 1) Get labs 2) Start prozac 10 mg daily 3) Keep notes on irritability 4) follow up in 2 months documented in this encounterS[facility]04-26-2024 History of Present illness Narrative* WernerCuongCinda HeatherSHAQUILLE.SALES AND TRAINING SPECIALIST - 02/28/2024 4:28 PM EDT This is [...] Impatient Mood swings Quick temper Works at [employer] for 6 years, worked previous job for 5 years Has periods that he doesn't want to get out of bed Sleeps 7-8 PAST MEDICAL HISTORY: PAST MEDICAL HISTORY Diagnosis Date Atopic eczema 2020 Depression [facility] - PAST MEDICAL HISTORY OF 06/27/2001 normal [...] agrees with the plan. documented in this encounterS[facility]03-26-2024 History of Present illness Narrative* Mara Felder APRN.CLIENT SPECIALIST - 01/28/2024 7:42 AM EDT Subjective Cough [...] expected course of illness Mara Felder APRN.CNP documented in this encounterScci Hospital [facility]03-26-2024 Instructions* Patient Instructions* Mara Felder APRN.CNP - [...] days of proper treatment. documented in this encounterS[facility]09-28-2022 Miscellaneous Notes* Telephone Encounter - Lucero Santizo LPN - 08/01/2022 8:51 AM EDT Called patient. Verified name and date of . Informed of order and verbalizes understanding. Lucero Santizo LPN * Telephone Encounter - Giulia Laughlin - 07/31/2022 12:51 PM EDT Pt scheduled for vasectomy on Saturday and is asking for pre-medication pill to take prior to procedure. 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 Dia Hooper. We are to call him to let him know once this has been sent over. Giulia Laughlin documented in this encounterScci Hospital [facility]07-19-2022 History of Present illness Narrative* Dereck Cano [...] attests that he watched and understood the [facility] Vasectomy video and read and understood the [...] 50% of time in counseling AMARI Sherman, PA, BRITTANIE [place] [address]-08-2010 History of Past illness Narrative* Problem Noted Date Resolved Date Painful respiration 09/11/2010 04/07/2018 documented as of this encounter (statuses as of 05/22/2022) [place] [address] History of Past illness Narrative* Problem Noted Date Resolved Date Painful respiration 09/11/2010 04/07/2018 documented as of this encounter (statuses as of 08/01/2022) [place] [address] History of Past illness Narrative* Problem Noted Date Diagnosed Date Resolved Date Painful respiration 09/11/2010 04/07/20 documented as of this encounter (statuses as of 01/28/2024) [facility] Vasectomy evaluation- Primary Other general counseling and advice for contraceptive management [facility] Diagnosis Vasectomy evaluation- Primary Other general counseling and advice for contraceptive management documented in this encounter [facility] noteNo assessment information availableWWilson Health Work Phone: Evaluation note* Diagnosis Sinobronchitis- Primary Unspecified sinusitis (chronic) Middle ear effusion, left documented in this encounter [facility] note* Diagnosis Anxiety with depression- Primary Irritability documented in this encounter [facility] note* Diagnosis Anxiety with depression Irritability documented in this encounter [facility] note* Diagnosis Anxiety with depression Irritability documented in this encounter [facility] note* Diagnosis Irritability- Primary Anxiety with depression documented in this encounter [facility] note* Diagnosis Elevated blood pressure reading without diagnosis of hypertension- Primary Screening for depression Encounter for screening examination for other mental health and behavioral disorders ADHD (attention deficit hyperactivity disorder), predominantly hyperactive impulsive type Attention deficit disorder with hyperactivity documented in this encounter [facility] for referral (narrative)No reason for referral information availableWWilson Health Work Phone: Summary Purpose Family History No Family History Records FoundNo Family History Records FoundNo Family History Records Found Advance Directives No Advanced Directives Records FoundDocuments on File Type Date Recorded 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 No May 01, 2025 7:28pm Advance Directives No January 11 10:47am Chief Complaint and Reason for Visit Chief Complaint left thumb injury Chief Complaint Admit Date STAT ORDER/FAX RESULTS [phone] March 26, 2025 7:56am Chief Complaint Admit Date STAT ORDER/FAX RESULTS [phone] March 26, 2025 7:56am bite May 01, 2025 7:08 pm Chief Complaint Admit Date STAT ORDER/FAX RESULTS [phone] March 26, 2025 7:56am bite May 01, 2025 7:08 pm meds only May 04, 2025 5:49p m Chief Complaint Admit Date STAT ORDER/FAX RESULTS [phone] March 26, 2025 7:56am bite May 01, 2025 7:08 pm meds only May 04, 2025 5:49p m meds only May 09, 2025 3:37p m Additional Source Comments (unrecognized sect ion and content) No Status Records FoundNo Status Records FoundNo Status Records Found INFORMATION SOURCE (unrecogn ized section and content) DATE CREATED AUTHOR 07/23/2020 [facility] DATE CREATED AUTHOR AUTHOR'S ORGANIZ ATION 04/01/2025 [facility] [place] DATE CREATED AUTHOR AUTHOR'S ORGANIZ ATION 05/12/2025 [facility] Source Comments (unrecognize d section and content) In the event this informatio n is protected by the Federal Confidentiality of Alcohol and Drug Abuse Patient Records regulations: The Federal rules restrict any use of the information to criminally investigate or prosecute any alcohol or drug abuse patient.[facility] the event this information is protected by the Federal Confidentiality of Alcohol and Drug Abuse Patient Records regulations: The Federal rules restrict any use of the information to criminally investigate or prosecute any alcohol or drug abuse patient.[facility] the event this information is protected by the Federal Confidentiality of Alcohol and Drug Abuse Patient Records regulations: The Federal rules restrict any use of the information to criminally investigate or prosecute any alcohol or drug abuse patient.[facility] the event this information is protected by the Federal Confidentiality of Alcohol and Drug Abuse Patient Records regulations: The Federal rules restrict any use of the information to criminally investigate or prosecute any alcohol or drug abuse patient.[facility] the event this information is protected by the Federal Confidentiality of Alcohol and Drug Abuse Patient Records regulations: The Federal rules restrict any use of the information to criminally investigate or prosecute any alcohol or drug abuse patient.[facility] the event this information is protected by the Federal Confidentiality of Alcohol and Drug Abuse Patient Records regulations: The Federal rules restrict any use of the information to criminally investigate or prosecute any alcohol or drug abuse patient.[facility] the event this information is protected by the Federal Confidentiality of Alcohol and Drug Abuse Patient Records regulations: The Federal rules restrict any use of the information to criminally investigate or prosecute any alcohol or drug abuse patient.[facility] the event this information is protected by the Federal Confidentiality of Alcohol and Drug Abuse Patient Records regulations: The Federal rules restrict any use of the information to criminally investigate or prosecute any alcohol or drug abuse patient.[facility] the event this information is protected by the Federal Confidentiality of Alcohol and Drug Abuse Patient Records regulations: The Federal rules restrict any use of the information to criminally investigate or prosecute any alcohol or drug abuse patient.[facility] Reason for Visit (unrecogniz ed section and content) Reason Comments Vasectomy-1 Reason Comments Orders Reason Comments Cough Cough, ST and ADAMS x 5 days Reason Comments Results Reason Comments Follow Up Reason Comments Rx updated, but not sent to pharmacy Reason Comments ADD/ADHD Care Teams (unrecognized sec tion and content) Financial Services Officer Relationship Specialty Start Date End Date Tammy Fowler MD [address] [place] [address] PCP - General Family Practice 10/04/16 Financial Services Officer Relationship Specialty Start Date End Date Tamym Fowler MD [address] [place], [place] [id number] PCP - General Family Medicine 10/04/16 Financial Services Officer Relationship Specialty Start Date End Date Tammy Fowler MD [address] [facility], [place] [id number] PCP - General Family Medicine 10/04/16 Financial Services Officer Relationship Specialty Start Date End Date Tammy Fowler MD [address] [facility], [place] [id number] PCP - General Family Medicine 10/04/16 Financial Services Officer Relationship Specialty Start Date End Date Tammy Fowler MD [address] [facility], [place] [id number] PCP - General Family Medicine 10/04/16 Financial Services Officer Relationship Specialty Start Date End Date Tammy Fowler MD [address] [place] [address] PCP - General Family Medicine 10/04/16 Financial Services Officer Relationship Specialty Start Date End Date Tammy Fowler MD [address] [place] [address] PCP - General Family Medicine 10/04/16 Financial Services Officer Relationship Specialty Start Date End Date Tammy Fowler MD [address] [place] [address] PCP - General Family Medicine 10/04/16 Sybil Haley, SHAQUILLE.CLIENT SPECIALIST [address] [facility] [place] [address] [facility] 10/12/24 Cinda Caldera APRN.CLIENT SPECIALIST [address] [place] [address] [facility] 10/12/24 Team Status: Active Member Role Status Dates No Primary Care Physician Family Provider Active Dr. Tammy Fowler MD Primary Care Provider Active Team Status: Inactive Member Role Status Dates Dr. Tammy Fowler MD Primary Care Provider Active Start: March 26, 2025 End: March 26, 2025 ANGEL FerrisC Attending Provider Active Start: March 26, 2025 End: March 26, 2025 Linsey Vaughn NP-C Referring Provider Active Start: March 26, 2025 End: March 26, 2025 Team Status: Active Member Role/Relationship Status Dates Dr. Tammy Fowler MD Primary Care Provider Active Team Status: Inactive Member Role/Relationship Status Dates Dr. Tammy Fowler MD Primary Care Provider Active Start: March 26, 2025 End: March 26, 2025 ANGEL FerrisC Attending Provider Active Start: March 26, 2025 End: March 26, 2025 Linsey Vaughn NP-[place] Referring Provider Active Start: March 26, 2025 [...] BE BASED ON THE PRIMARY CLINICAL RECORDS. [facility] provides no warranty or guarantee of the accuracy or completeness of information in this document.
[2025-05-16 16:24] VITALS: BMI 26.4
--- OUTSIDE RECORDS SUMMARY | 2025-05-16 17:22 | XMS RPT_ITS | CCD ---
Author Organization [facility] Care Team Providers Care Senior Counsel Name Role Phone Tammy Fowler MD Primary Care Provider Tammy Fowler MD Primary Care Provider Tera SKIVER HAND.Sybil ALAS Unavailable Werner SKIVER HAND.Cinda ALAS Unavailable Dr. Tammy Fowler MD Primary Care Provider Jose ORTIZCLinsey Attending Provider Jose SERICULTURE TEACHERTamyCLinsey Referring Provider LINSEY VAUGHN Referring Unavailable TAMMY FOWLER Primary Care Unavailable TAMMY FOWLER Primary Care Unavailable LINSEY VAUGHN Attending Unavailable CINDA CALDERA Attending Unavailable TAMMY FOWLER Primary Care Unavailable CINDA CALDERA Attending Unavailable TAMMY FOWLER Primary Care Unavailable Dr. Lee Gentile MD Emergency Provider Dr. Lee Gentile MD Attending Provider Dr. Lee Gentile MD Attending Provider [phone] Lee Gentile Attending Unavailable Tammy Fowler Primary Care Unavailable Lee Gentile Attending Unavailable Tammy Fowler Primary Care Unavailable Lee Gentile Attending Unavailable Tammy Fowler Primary Care Unavailable Linsey Vaughn Referring Unavailable Tammy Fowler Primary Care Unavailable Linsey Vaughn Attending Unavailable Medications Current Medications Medication Drug Class(es) Dates Sig (Normalized) Sig (Original) amoxicillin 875 mg / clavulanate 125 mg oral tablet (4 sources) Penicillin-class Antibacterial Start: 05-01-2025 take 1 [...] 02/06/2025 Active cephalexin 500 mg oral capsule (6 sources) Cephalosporin Antibacterial Start: 11-11-2022 take 1 [...] on above: Take 1 capsule by mo [facility] two times a day for [...] Comment on above: [facility]. naproxen 500 mg oral tablet (6 sources) Nonsteroidal Anti-inflammatory Drug Start: 10-13-20 take [...] Onset: 01-07-2025 Chronic Contraceptive and procreative management (8 sources) Patient encounter status; Translations: [Encounter for other general counseling and advice on contraception] Episodic E Codes: Cut/pierceb (6 sources) Accidents caused by cutting and piercing instruments or objects ; Translations: [Contact with other powered hand tools and household machinery, initial encounter] 11-19-2022 Episodic Headache; including migraine (6 sources) Headache; Translations: [Headache] 04-27-2021 Episodic Immunizations and screening for infectious disease (5 sources) Requires rabies vaccination course; Translations: [Encounter for immunization] Onset: 05-11-2025 05-01-2025 Episodic Open wounds of extremities (11 sources) Puncture wound of thumb of left hand; Translations: [Puncture wound without foreign body of left thumb without damage to nail, initial encounter] Onset: 05-06-2025 11-19-2022 Episodic Other circulatory disease (6 sources) Nasal discharge; Translations: [Other specified symptoms [...] Onset: 01-07-2025 Episodic Other lower respiratory disease (6 sources) Cough; Translations: [Cough] 03-17-2021 Episodic Other upper respiratory disease (6 sources) Congestion of nasal sinus; Translations: [Nasal congestion] 03-17-2021 Episodic Other upper respiratory infections (1 source) Chronic sinusitis; Translations: [Chronic sinusitis, unspecified] 01-28-2024 Chronic Other upper respiratory infections (6 sources) Sore throat symptom; Translations: [Acute pharyngitis, [...] disorders] Onset: 01-07-2025 Episodic Superficial injury; contusion (6 sources) Contusion of foot; Translations: [Contusion of [...] Department Summary on 05-01-2025 Emergency Department Summary [facility] Medical Records Department [address] [place] [address] Emergency Department Summary 05/01/25 MR#: [id number] Acct: [id number] Name: DENTON JOLLEY Rep #: [id number] : 1995 29 From: Lee Gentile MD [...] symptoms: No Recent Illness/Hospitalizati on: No PFSH [facility] Home Medications ???Medication ???Instructions ???Recorded ???Last Taken [...] 2 Days for wound check Print Language: Belgian Disposition Disposition: Home, Self Care What to do if you have Problems For any increased pain, shortness of breath, bleeding, nausea or vomiting, chest pain, or any unexpected problems, contact your Primary Care Provider. C (more content not included)... Normal [facility] 03-26-2025 [facility] Office Visit (UCWSTR ) DENTON JOLLEY ([id number]) 1995 M Date Time Provider Department 03/26/25 7:30 AM LINSEY VAUGHN [facility] During your visit today, we recorded the following information about you: Temperature Pulse Respiration Blood pressure 97.4 degrees 54/minute 18/minute 133/82 Weight 83.8 kg Linsey Vaughn APRN.[facility] 03/26/2025 9:23 AM Signed [facility] [...] or do not improve. and Recording using Jirafe software for draft documentation of the visit was discussed with the patient/authorized operations representative; all questions welcomed and answered. Patient/authorized operations representative agreed to proceed MDM Procedures Allergies As of Date: 03/26/2025 (No Known Allergies) Date Reviewed: 03/26/2025 Reviewed by: Latanya Zeng MA - Fully Assessed Reason for Visit: Cough [28] Cmt: Head and chest congestion x3 weeks Primary Visit Diagnosis:Acute cough [R05.1] Other Visit Diagnosis:Rhinosinusi tis [J32.9] Order(s):XR CHEST 2V FRONTAL/LAT [1985438] Order #: [id number] FUTURE doxycycline (VIBRA-TABS) 100 mg tabletTake 1 [...] by LINSEY VAUGHN on 03/26/25 [facility] 03-26-2025 [facility] Telephone (UCWSTR) DENTON JOLLEY ([id number]) 1995 Date Time Provider Department 03/26/25 LINSEY VAUGHN [facility] During your visit today, we recorded the following information about you: Linsey Vaughn APRN.[facility] 03/26/2025 9:24 AM Signed Please call let patient know he is negative for chest x-ray. Let patient know I called in doxycycline twice a day for a week for his sinus infection. If his symptoms do not improve follow-up with primary care Linsey Vaughn APRN.[facility] 03/26/2025 10:27 AM Signed Called back talked [...] Status:Closed by LINSEY VAUGHN on 03/26/25 Normal [facility] Chest PA and Lateralon 03-26 Chest PA and Lateral [facility] Imaging Services [address] [place] [id number] Chest PA and Lateral MR#: [id number] Acct: [id number] Name: DENTON JOLLEY Rep #: [id number] : 1995 M 29 From: Tyrel warren MD PCP: Dr. Tammy Fowler MD Status: REG CLI Study: Chest PA and Lateral Date of Exam: 03/26/25 Exam# [id number] Ordering Dr: Linsey Vaughn NP PROCEDURE: CHEST PA AND LATERAL 03/26/2025 REASON FOR EXAM: COUGH TECHNIQUE: Frontal and lateral views of the chest. COMPARISON: None FINDINGS: Hardware: None Heart: The heart size is normal. Mediastinum: The mediastinal contour is unremarkable. Lungs: The lungs are clear. Bones: The bones are unremarkable. RAD/Chest PA and Lateral IMPRESSION: NEGATIVE CHEST Reading Location: [facility] CC: SUSU Vaughn; Dr. Tammy Fowler MD Assurance Analyst: Signed Normal [facility] CNOVon 01-07-2025 CNOV Office Visit (FAMPWS ) DENTON JOLLEY ([id number]) 1995 M Date Time Provider Department 01/07/25 4:20 PM CINDA CALDERA During your visit today, we recorded the following information about you: Temperature Pulse Blood pressure Weight 97.8 degrees 68/minute 140/78 85.3 kg Cinda Caldera APRN.[employer] 01/07/2025 4:52 PM Signed This is a 29 year old male who presents today with: Patient presents with: ADD/ADHD HISTORY OF PRESENT ILLNESS: Denton Jolley is a 29 year old male. Patient presents with: ADD/ADHD [place] like fluoxetine just numbed him out. Behavior [...] daily 2) DME- BP cuff sent to [employer] [facility] 3) Send me 3 BP [...] hyperactivity disorder) (more content not included)... Normal [facility] 07-16-2024 [facility] Telephone (FAMWS) DENTON JOLLEY ([id number]) 1995 Date Time Provider Department 07/16/24 TAMMY FOWLER [facility] During your visit today, we recorded the following information about you: Yoselin Dietrich 07/16/2024 3:56 PM Signed Patient said he was told his rx fluoxetine 40 mg was sent to [facility]. It was updated in chart, but not sent. He would like a call back at [phone] when sent. Tammy Fowler MD 07/16/2024 4:20 PM Signed Sorry sent Ej Faria MA 07/16/2024 4:33 PM Signed Called and left generic message on that Rx has been sent to Pharmacy as requested. If questions to contact office and speak with Triage Nurse. Ej Faria MA Allergies As of Date: 07/16/2024 (No Known Allergies) Date Reviewed: 06/11/2024 Reviewed by: Cinda Caldera APRN.[facility] - Fully Assessed Reason for Visit: Rx [...] Encounter Status:Closed by E[facility] DENT[facility]OL[facility] ([id number]) 1995 M Date Time Provider Department 07/16/24 [...] Date Reviewed: 06/11/2024 Reviewed by: Cinda Caldera APRN.SCR[employer] BALLER - Fully Assessed Visit Diagnoses:Anxiety with depression [...] Encounter Status:Closed by LORI WILKES on 07/16/24 [facility] CNOVon 06-11-2024 CNOV Office Visit (FAMPWS ) DENTON JOLLEY ([id number]) 1995 M Date Time Provider Department 06/11/24 [...] Service: OFFICE/OUTPATIENT ESTABLISHED LOW MDM 20 MIN [83399] Disposition: Return in about 3 months (around 09/11/2024) for stress level. Follow-up and Disposition History for Encounter Date Provider Department Center 06/11/2024 [id number]-JYZXCIOLIVER CALDERA*FAMPWS [facility] [place] Encounter Status:Closed by CINDA CALDERA on 06/11/24 [facility] CBC W Auto Differential pane l (Bld)on 02-28-2024 Basophils (Bld) [#/Vol] [facility] Basophils/100 WBC (Bld) 0.2 % [facility] Differential cell count method Nom (Bld) Auto [facility] Eosinophils (Bld) [#/Vol] 0.10 10*3/uL [facility] Eosinophils/100 WBC (Bld) 1.1 % [facility] Erythrocyte distribution width (RBC) [Ratio] 11.9 % 11.5 - 15.0 % [facility] Hematocrit (Bld) [Volume fraction] 46.1 % 39.0 - 51.0 % [facility] Hemoglobin (Bld) [Mass/Vol] 16.0 g/dL 13.0 - 17.0 g/dL [facility] Immature granulocytes (Bld) [#/Vol] 0.03 10*3/uL [facility] Immature granulocytes/100 WBC (Bld) 0.3 % [facility] Lymphocytes (Bld) [#/Vol] 3.16 10*3/uL [facility] Lymphocytes/100 WBC (Bld) 35.0 % [facility] MCH (RBC) [Entitic mass] 30.4 pg 26.0 - 34.0 pg [facility] MCHC (RBC) [Mass/Vol] 34.7 g/dL 30.5 - 36.0 g/dL [facility] MCV (RBC) [Entitic vol] 87.6 fL 80.0 - 100.0 fL [facility] Monocytes (Bld) [#/Vol] 0.77 10*3/uL [facility] Monocytes/100 WBC (Bld) 8.5 % [facility] Neutrophils (Bld) [#/Vol] 4.94 10*3/uL [facility] Neutrophils/100 WBC (Bld) 54.9 % [facility] Nucleated RBC (Bld) [#/Vol] [facility] Nucleated RBC/100 WBC (Bld) [Ratio] 0.0 % /100 WBC [facility] Platelet mean volume (Bld) [Entitic vol] 10.5 fL 9.0 - 12.7 fL [facility] Platelets (Bld) [#/Vol] 226 10*3/uL [facility] RBC (Bld) [#/Vol] 5.26 10*6/uL 4.20 - 6.0 0 m/uL [facility] WBC (Bld) [#/Vol] 9.02 10*3/uL [facility] ALLIED HEALTHon 07-24-2020 ALLIED HEALTH HNO ID: [id number] Author: Lilly (Rt) Mayi Tarango Service: Radiology Author Type: Rpg Developer Type: Allied Health Filed: 07/23/2020 11:27 PM [...] RT Kassy July 23, 2020 11:26 PM [facility] ED NOTEon 07-24-2020 ED NOTE HNO ID: [id number] Author: Michelle Robison RN Service: ? Author Type: Registered Nurse Type: ED Notes Filed: 07/24/2020 12:07 AM Note Text: dr glez at bedside to talk with pt regarding results and plan of care. [facility] ED NOTE HNO ID: [id number] Author: Michelle Robison RN Service: ? Author Type: Registered Nurse Type: ED Notes Filed: 07/24/2020 12:07 AM Note Text: pt given dc instructions and follow up care he verbalized understanding. [facility] ED NOTE HNO ID: [id number] Author: Michelle Robison RN Service: ? Author Type: Registered Nurse Type: ED Notes Filed: 07/24/2020 12:01 AM Note Text: pt given air cast and crutches, [facility] ED NOTE HNO ID: [id number] Author: Michelle Robison RN Service: ? Author Type: Registered Nurse Type: ED Notes Filed: 07/23/2020 11:16 PM Note Text: xr at bedside [facility] ED NOTE HNO ID: [id number] Author: Michelle Robison RN Service: ? Author Type: Registered Nurse Type: ED Notes Filed: 07/23/2020 11:07 PM Note Text: dr glez in room [facility] ED NOTE HNO ID: [id number] Author: Michelle (Rn) MILAD Robison Service: ? Author Type: Registered Nurse Type: ED Notes Filed: 07/23/2020 11:02 PM Note Text: pt offered ice pack [facility] ED PROV NOTEon 07-24-2020 ED PROV NOTE HNO ID: [id number] Author: Lavelle Glez MD Service: ? Author [...] ankle. PAST MEDICAL HISTORY Diagnosis Date - [facility] - PAST MEDICAL HISTORY OF 06/27/01 [...] cast and give crutches, follow-up with orthopedic inspector precision PRN ED Course / Clinical Impression Clinical Impressions as of Jul 23 2344 Right ankle sprain Acute right ankle pain MDM / Disposition / Plan MDM SIGNATURE: MD Lavelle Zaragoza MD 07/23/20 5852 [facility] XR ANKLE 3V AP/LAT/OBL RTon [...] Right foot: Negative for fracture or malalignment. Assurance Analyst: PSCB Transcribe Date/Time: Jul 23 2020 11:47P Dictated by : JULIUS PENNY MD This examination was interpreted and the report reviewed and electronically signed by: JULIUS PENNY MD on Jul 23 2020 11:49PM EST [id number] [facility] XR FOOT 3V AP/LAT/OBL RTon 0 07-24-2020 XR FOOT 3V AP/LAT/OBL RT * * *Final Report* * * DATE OF EXAM: Jul 23 2020 11:24PM MDX 5337 - XR FOOT 3V AP/LAT/OBL RT / PROCEDURE REASON: Foot trauma, [place] neg, initial exam * * * * [...] Right foot: Negative for fracture or malalignment. Assurance Analyst: EDMUND Transcribe Date/Time: Jul 23 2020 11:47P Dictated by : JULIUS PENNY MD This examination was interpreted and the report reviewed and electronically signed by: JULIUS PENNY MD on Jul 23 2020 11:49PM EST [id number] Normal [facility] Vital Signs Date Time Vital Sign Value Performing Clinician Facility 05-16-2025 16:24-0400 Body height 182.[address] Tammy Fowler MD Work Phone: [facility] 05-16-2025 16:24-0400 Body mass index (BMI) [Ratio] 26.4 kg/m2 Dr. Tammy Fowler MD Work Phone: [facility] 05-16-2025 16:24-0400 Body weight 88.[address] Tammy Fowler MD Work Phone: [facility] 05-16-2025 15:45-0400 Diastolic blood pressure 77 mm[Hg] Dr. Tammy Fowler MD Work Phone: [facility] 05-16-2025 15:45-0400 Heart rate 62 /min Dr. Tammy Fowler MD Work Phone: [facility] 05-16-2025 15:45-0400 Respiratory rate 16 /min Dr. Tammy Fowler MD Work Phone: 6(434)782-516181 [place] [address] 05-16-2025 15:45-0400 SaO2% (BldA) [Mass fraction] 97 % Dr. Tammy Fowler MD Work Phone: 3(431)084-274381 [place] [address] 05-16-2025 15:45-0400 Systolic blood pressure 134 mm[Hg] Dr. Tammy Fowler MD Work Phone: 9(971)968-248981 [place] [address] 05-09-2025 15:39-0400 Body height 182.[address] Tammy Fowler MD Work Phone: 1(897)293-918881 [place] [address] 05-09-2025 15:39-0400 Body mass index (BMI) [Ratio] 26.4 kg/m2 Dr. Tammy Fowler MD Work Phone: 2(524)255-758681 [place] [address] 05-09-2025 15:39-0400 Body temperature 96.7 [degF] Dr. Tammy Fowler MD Work Phone: 5(926)848-234181 [place] [address] 05-09-2025 15:39-0400 Body weight 88.[address] Tammy Fowler MD Work Phone: 4(501)919-020981 [place] [address] 05-09-2025 15:39-0400 Diastolic blood pressure 79 mm[Hg] Dr. Tammy Fowler MD Work Phone: 0(925)827-725381 [place] [address] 05-09-2025 15:39-0400 Heart rate 60 /min Dr. Tammy Fowler MD Work Phone: 1(428)901-054581 [place] [address] 05-09-2025 15:39-0400 Respiratory rate 18 /min Dr. Tammy Fowler MD Work Phone: 4(921)510-070581 [place] [address] 05-09-2025 15:39-0400 SaO2% (BldA) [Mass fraction] 97 % Dr. Tammy Fowler MD Work Phone: 2(718)922-062381 [place] [address] 05-09-2025 15:39-0400 Systolic blood pressure 144 mm[Hg] Dr. Tammy Fowler MD Work Phone: 8(314)404-335881 [place] [address] 05-04-2025 16:27-0400 Body mass index (BMI) [Ratio] 25.7 kg/m2 Dr. Tammy Fowler MD Work Phone: 1(323)100-324581 [place] [address] 05-04-2025 16:27-0400 Body weight 86.[address] Tammy Fowler MD Work Phone: 7(876)807-370381 [place] [address] 05-04-2025 15:45-0400 Body height 182.[address] Tammy Fowler MD Work Phone: 6(669)944-994881 [place] [address] 05-04-2025 15:45-0400 Diastolic blood pressure 64 mm[Hg] Dr. Tammy Fowler MD Work Phone: 4(090)454-276981 [place] [address] 05-04-2025 15:45-0400 Heart rate 59 /min Dr. Tammy Fowler MD Work Phone: 6(689)745-937381 [place] [address] 05-04-2025 15:45-0400 Respiratory rate 16 /min Dr. Tammy Fowler MD Work Phone: 1(517)350-916081 [place] [address] 05-04-2025 15:45-0400 SaO2% (BldA) [Mass fraction] 97 % Dr. Tammy Fowler MD Work Phone: 3(748)986-207681 [place] [address] 05-04-2025 15:45-0400 Systolic blood pressure 140 mm[Hg] Dr. Tammy Fowler MD Work Phone: 7(704)525-075781 [place] [address] 05-04-2025 15:44-0400 Body temperature 97.1 [degF] Dr. Tammy Fowler MD Work Phone: 5(694)604-560581 [place] [address] 05-01-2025 21:03-0400 Body temperature 97.9 [degF] Dr. Tammy Fowler MD Work Phone: 7(252)351-457481 [place] [address] 05-01-2025 21:03-0400 Diastolic blood pressure 77 mm[Hg] Dr. Tammy Fowler MD Work Phone: 1(178)085-030681 [place] [address] 05-01-2025 21:03-0400 Heart rate 75 /min Dr. Tammy Fowler MD Work Phone: 0(356)624-193881 [place] [address] 05-01-2025 21:03-0400 Respiratory rate 14 /min Dr. Tammy Fowler MD Work Phone: [facility] 05-01-2025 21:03-0400 SaO2% (BldA) [Mass fraction] 100 % Dr. Tammy Fowler MD Work Phone: [facility] 05-01-2025 21:03-0400 Systolic blood pressure 131 mm[Hg] Dr. Tammy Fowler MD Work Phone: 5(585)622-922122 [place] [address] 05-01-2025 19:09-0400 Body height 182.[address] Tammy Fowler MD Work Phone: 1(832)997-786322 [place] [address] 05-01-2025 19:09-0400 Body mass index (BMI) [Ratio] 25.2 kg/m2 Dr. Tammy Fowler MD Work Phone: 5(374)457-096922 [place] [address] 05-01-2025 19:09-0400 Body weight 84.[address] Tammy Fowler MD Work Phone: 1(602)315-023522 [place] [address] 01-07-2025 16:16-0500 Body mass index (BMI) [Ratio] 25.5 kg/m2 Cinda Suppan SKIVER HAND.SCRAP BALLER Work Phone: [facility] 01-07-2025 16:16-0500 Body temperature 97.81 [degF] Cinda Suppan SKIVER HAND.SCRAP BALLER Work Phone: [facility] 01-07-2025 16:16-0500 Body weight 85.28 kg Cinda Suppan SKIVER HAND.SCRAP BALLER Work Phone: [facility] 01-07-2025 16:16-0500 Diastolic blood pressure 78 mm[Hg] Cinda Suppan SKIVER HAND.SCRAP BALLER Work Phone: [facility] 01-07-2025 16:16-0500 Heart rate 68 /min Cinda Suppan SKIVER HAND.SCRAP BALLER Work Phone: [facility] 01-07-2025 16:16-0500 SaO2% (BldA) [Mass fraction] 100 % Cinda Suppan SKIVER HAND.SCRAP BALLER Work Phone: [facility] 01-07-2025 16:16-0500 Systolic blood pressure 140 mm[Hg] Cinda Suppan SKIVER HAND.SCRAP BALLER Work Phone: [facility] 06-11-2024 15:56-0400 Diastolic blood pressure 80 mm[Hg] Cinda Suppan SKIVER HAND.SCRAP BALLER Work Phone: [facility] 06-11-2024 15:56-0400 Systolic blood pressure 136 mm[Hg] Cinda Suppan SKIVER HAND.SCRAP BALLER Work Phone: [facility] 06-11-2024 15:43-0400 Body height 182.9 cm Cinda Suppan SKIVER HAND.SCRAP BALLER Work Phone: [facility] 06-11-2024 15:43-0400 Body mass index (BMI) [Ratio] 23.46 kg/m2 Cinda Suppan SKIVER HAND.SCRAP BALLER Work Phone: [facility] 06-11-2024 15:43-0400 Body weight 78.47 kg Cinda Suppan SKIVER HAND.SCRAP BALLER Work Phone: [facility] 06-11-2024 15:43-0400 Heart rate 68 /min Cinda Suppan SKIVER HAND.SCRAP BALLER Work Phone: [facility] 06-11-2024 15:43-0400 SaO2% (BldA) [Mass fraction] 98 % Cinda Suppan SKIVER HAND.SCRAP BALLER Work Phone: [facility] 02-28-2024 16:17-0400 Body mass index (BMI) [Ratio] 22.51 kg/m2 Cinda Suppan SKIVER HAND.DE ICER ELEMENT WINDER Work Phone: [facility] 02-28-2024 16:17-0400 Body weight 75.3 kg Cinda Suppan SKIVER HAND.DE [employer]LE[employer] W[employer]ER Work Phone: [facility] 02-28-2024 16:17-0400 Diastolic blood pressure 76 mm[Hg] Cinda Suppan SKIVER HAND.DE ICER [employer]LEMENT W[employer]ER Work Phone: [facility] 02-28-2024 16:17-0400 Heart rate 58 /min Cinda Suppan SKIVER HAND.DE ICER [employer]LE[employer] W[employer]ER Work Phone: [facility] 02-28-2024 16:17-0400 Respiratory rate 16 /min Cinda Suppan SKIVER HAND.DE [employer] W[employer]ER Work Phone: [facility] 02-28-2024 16:17-0400 SaO2% (BldA) [Mass fraction] 98 % Cinda Suppan SKIVER HAND.DE ICER [employer]LE[employer] W[employer]ER Work Phone: [facility] 02-28-2024 16:17-0400 Systolic blood pressure 124 mm[Hg] Cinda Suppan SKIVER HAND.DE ICER [employer]LEMENT W[employer]ER Work Phone: [facility] 01-28-2024 07:31-0400 Body temperature 97.39 [degF] Mara Praisler-Wood SKIVER HAND.SCRAP BALLER Work Phone: [facility] 01-28-2024 07:31-0400 Body weight 74.7 kg Mara Praisler-Wood SKIVER HAND.SCRAP BALLER Work Phone: [facility] 01-28-2024 07:31-0400 Diastolic blood pressure 80 mm[Hg] Mara Praisler-Wood SKIVER HAND.SCRAP BALLER Work Phone: [facility] 01-28-2024 07:31-0400 Heart rate 50 /min Mara Praisler-Wood SKIVER HAND.SCRAP BALLER Work Phone: [facility] 01-28-2024 07:31-0400 Respiratory rate 16 /min Mara Praisler-Wood SKIVER HAND.SCRAP BALLER Work Phone: [facility] 01-28-2024 07:31-0400 SaO2% (BldA) [Mass fraction] 98 % Mara Praisler-Wood SKIVER HAND.SCRAP BALLER Work Phone: [facility] 01-28-2024 07:31-0400 Systolic blood pressure 122 mm[Hg] Mara Praisler-Wood SKIVER HAND.SCRAP BALLER Work Phone: [facility] 11-11-2022 16:43-0500 Heart rate 68 /min [facility] Work Phone: 11-11-2022 16:43-0500 Respiratory rate 17 /min [facility] Work Phone: 11-11-2022 16:43-0500 SaO2% (BldA) [Mass fraction] 99 % [facility] Work Phone: 11-11-2022 15:29-0500 Body height 182.[address] [facility] Work Phone: 11-11-2022 15:29-0500 Body mass index (BMI) [Ratio] 22.4 kg/m2 [facility] Work Phone: 11-11-2022 15:29-0500 Body temperature 98 [degF] [facility] Work Phone: 11-11-2022 15:29-0500 Body weight 74.[address] [facility] Work Phone: 11-11-2022 15:29-0500 Diastolic blood pressure 70 mm[Hg] [facility] Work Phone: 11-11-2022 15:29-0500 Systolic blood pressure 134 mm[Hg] [facility] Work Phone: 05-22-2022 16:12-0400 Body height 182.9 cm Dereck Cano PA-C Work Phone: [facility] 05-22-2022 16:12-0400 Body temperature 99.39 [degF] Dereck Cano PA-C Work Phone: [facility] 05-22-2022 16:12-0400 Body weight 70.31 kg Dereck Cano PA-C Work Phone: [facility] 05-22-2022 16:12-0400 Diastolic blood pressure 86 mm[Hg] Dereck Cano PA-C Work Phone: [facility] 05-22-2022 16:12-0400 Heart rate 78 /min Dereck Cano PA-C Work Phone: [facility] 05-22-2022 16:12-0400 Respiratory rate 12 /min Dereck Cano PA-C Work Phone: [facility] 05-22-2022 16:12-0400 SaO2% (BldA) [Mass fraction] 100 % Dereck Cano PA-C Work Phone: [facility] 05-22-2022 16:12-0400 Systolic blood pressure 136 mm[Hg] Dereck Cano PA-C Work Phone: [facility] Encounters Encounter Date Encounter Type Care Provider Facility Start: 05-16-2025 End: 05-16-2025 Emergency department patient visit Dr. Tammy Fowler MD Work Phone: -Emergency Department Work Phone: Start: 05-09-2025 End: 05-09-2025 Emergency department patient visit Dr. Tammy Fowler MD Work Phone: -Emergency Department Work Phone: Start: 05-09-2025 End: 05-09-[address] Lee Gentile MD -Emergency Department Work Phone: Start: 05-09-2025 End: 05-09-2025 ambulatory [facility] Facility:[facility] Start: 05-04-2025 End: 05-04-[address] Tammy Fowler MD Work Phone: -Emergency Department Start: 05-04-2025 End: 05-04-[address] Lee Gentile MD -Emergency Department Work Phone: Start: 05-04-2025 End: 05-04-2025 ambulatory [facility] Facility:[facility] Start: 05-01-2025 End: 05-01-2025 Emergency department patient visit Dr. Tammy Fowler MD Work Phone: -Emergency Department Work Phone: Start: 03-26-2025 End: 03-26-2025 Patient encounter procedure Linsey Vaughn NP-C -Radiology [facility] Work Phone: Start: 03-26-2025 End: 03-26-[address] Tammy Fowler MD Work Phone: [facility] Work Phone: Start: 03-26-2025 End: 03-26-2025 ambulatory Linsey Vaughn Facility:[facility] Start: 01-07-2025 End: 01-07-2025 Office outpatient visit 15 minutes Cinda Watkins Suppan SKIVER HAND.SCRAP BALLER Work Phone: [facility] Comment on above: Elevated blood press ure reading without diagnosis of hypertension (Primary Dx); Screening for depression; Encounter for screening examination for other mental health and behavioral disorders; ADHD (attention deficit hyperactivity disorder), predominantly hyperactive impulsive type Start: 01-07-2025 End: 01-07-2025 ambulatory CINDA A SUPPAN Facility:[facility] Start: 07-16-2024 End: 07-16-2024 Telephone encounter Cinda Caldera SKIVER HAND.SCRAP BALLER Work Phone: [facility] [place] Comment on above: Rx updated, but not sent to pharmacy Start: 06-11-2024 End: 06-11-2024 Office outpatient visit 15 minutes Cinda A Suppan SKIVER HAND.SCRAP BALLER Work Phone: [facility] Comment on above: Anxiety with depress ion (Primary Dx); Irritability Start: 06-11-2024 End: 06-11-2024 ambulatory CINDA A SUPPAN Facility:[facility] Start: 03-09-2024 Telephone encounter Cinda Caldera SKIVER HAND.DE ICER ELEMENT WINDER Work Phone: [facility] Comment on above: Results Start: 02-28-2024 End: 02-28-2024 Office outpatient visit 15 minutes Cinda A Suppan SKIVER HAND.DE ICER ELEMENT WINDER Work Phone: [facility] Comment on above: Irritability (Primar y Dx); Anxiety with depression Start: 01-28-2024 End: 01-28-2024 Patient encounter procedure Mara Felder SKIVER HAND.SCRAP BALLER Work Phone: [facility] Comment on above: Sinobronchitis (Prim kayy Dx); Middle ear effusion, left Start: 11-11-2022 End: 11-11-2022 Emergency department patient visit [facility]-Emergency Department Start: 07-31-2022 Telephone encounter Dereck [...] Adult depression scr eening assessment Cinda Caldera SKIVER HAND.SCRAP BALLER Work Phone: Start: 11-11-2022 Diagnostic radiograp hy of finger Start: 07-20-2019 Adult depression scr eening assessment Dereck Cano PA-C Work Phone: Plan of Treatment Date Care Activity Detail Author Start: 01-07-2026 Anxiety Screening Anxiety Screening [facility] Start: 01-07-2026 Depression Screening Depression Scre ening [facility] Start: 05-03-2025 Influenza vaccination Influenz a Vaccine (#1) [facility] Comment on above: Postponed from 07/05 (Declined at this time) Start: 05-01-2025 [facility] Start: 02-18-2025 End: 02-18-2025 Patient encounter procedure 02/18/2025 3:00 PM EDT Office Visit [facility] [address] [place] [address] Cinda Caldera SKIVER HAND.SCRAP BALLER [address] [place], [place] [id number] 6 week ADD medication follow up [facility] Comment on above: 6 week ADD medicatio n follow up Start: 07-05-2024 Covid-19 Vaccine () Covid-19 Vaccine () [facility] Start: 07-05-2024 Covid-19 Vaccine () Covid-19 Vaccine ( season) [facility] Start: 07-05-2024 Influenza vaccination C [facility] Start: 02-28-2024 End: 05-29-2024 Cobalamin (Vitamin B12) [Mass/volume] in Serum or Plasma [facility] Comment on above: Expected: 02/28/2024 , Expires: 05/29/2024 Start: 02-28-2024 End: 05-29-2024 Comprehensive metabolic 2000 panel - Serum or Plasma [facility] Work Phone: Comment on above: Expected: 02/28/2024 , Expires: 05/29/2024 Start: 02-28-2024 End: 05-29-2024 LIPID PANEL, NONFASTING [facility] Comment on above: Expected: 02/28/2024 , Expires: 05/29/2024 Start: 02-28-2024 End: 05-29-2024 Magnesium [Mass/volume] in Serum or Plasma [facility] Comment on above: Expected: 02/28/2024 , Expires: 05/29/2024 Start: 02-28-2024 End: 05-29-2024 TESTOSTERONE, FREE AND TOTAL [facility] Comment on above: Expected: 02/28/2024 , Expires: 05/29/2024 Start: 02-28-2024 End: 05-29-2024 Thyrotropin [Units/volume] in Serum or Plasma [facility] Comment on above: Expected: 02/28/2024 , Expires: 05/29/2024 Start: 11-04-2023 Behavioral Health Screening Behavioral Health Screening [facility] Start: 11-04-2023 Depression Assessment Depression Ass essment [facility] Start: 07-05-2023 Covid-19 Vaccine ( season) Covid-19 Vaccine () [facility] Start: 07-05-2023 Influenza vaccination Influenz a Vaccine (#1) [facility] Start: 07-05-2022 Influenza vaccination INFLUENZA (#1) [facility] Start: 11-04-2021 DEPRESSION ASSESSMENT DEPRESSION ASS ESSMENT [facility] Start: 07-20-2020 Adult depression screening assessment DEPRESSION SCREENING [facility] Start: 05-23-2017 Urine microalbumin profile [facility] Start: 2011 Anxiety Screening Anxiety Screening [facility] Start: 2011 Depression Screening Depression Scre ening [facility] Start: 2011 HEPATITIS C SCREENING HEPATITIS C [facility] Start: 2011 Hepatitis C screening Hepatitis C [facility] Start: 2011 HIV SCREENING HIV SCREENING [facility] Start: 2011 HIV screening HIV Screening [facility] Start: 06-17-1994 COVID-19 VACCINE (#1) COVID-19 VACCI NE (#1) [facility] Patient Education [facility] Work Phone: Patient referral [facility] Work Phone: Vasectomy uni/bi spx w/postop semen exams VASECTOMY Procedures Routine Vasectomy evaluation Ordered: 05/22/2022 [facility] Work Phone: Comment on above: Ordered: 05/22/2022 [facility] Immunizations Immunization Date Immunization Notes Care Provider [facility] 05-16-2025 rabies vaccine, for intramuscular injection Dr. Tammy Fowler MD Work Phone: [facility] 05-09-2025 rabies vaccine, for intramuscular injection Dr. Tammy Fowler MD Work Phone: [facility] 05-04-2025 rabies vaccine, for intramuscular injection Dr. Tammy Fowler MD Work Phone: [facility] 05-01-[address] Meghana Fowler MD Work Phone: [facility] 05-01-2025 rabies vaccine, for intramuscular injection Dr. Tammy Fowler MD Work Phone: [facility] 05-27-2008 varicella virus vaccine Tony Cano PA-C Work Phone: [facility] Work Phone: 05-23-2007 Meningococcal, MCV4, unspecified conjugate formulation(groups A, C, Y and W-135) Dereck Cano PA-C Work Phone: [facility] Work Phone: 05-23-2007 tetanus toxoid, redu shana diphtheria toxoid, and acellular pertussis vaccine, adsorbed Dereck Cano PA-C Work Phone: [facility] Work Phone: 09-16-2003 influenza virus vaccine, unspecified formulation Dereck Cano PA-C Work Phone: [facility] 09-28-2002 influenza virus vaccine, unspecified formulation Dereck Cano PA-C Work Phone: [facility] 03-15-1999 diphtheria, tetanus toxoids and acellular pertussis vaccine Dereck Cano PA-C Work Phone: [facility] 03-15-1999 measles, mumps and rubella virus vaccine Dereck Cano PA-C Work Phone: [facility] 03-15-1999 poliovirus vaccine, inactivated Dereck Cano PA-C Work Phone: [facility] 10-18-1997 varicella virus vaccine Bran don Cano PA-C Work Phone: [facility] 01-23-1995 hepatitis B vaccine, pediatric or pediatric/adolescent dosage Dereck Cano PA-C Work Phone: [facility] 12-26-1994 diphtheria, tetanus toxoids and acellular pertussis vaccine Dereck Cano PA-C Work Phone: [facility] 12-26-1994 haemophilus influenz ae type b vaccine, conjugate unspecified formulation Cinda Suppan SKIVER HAND.DE ICER ELEMENT WINDER Work Phone: [facility] 12-26-1994 hepatitis B vaccine, pediatric or pediatric/adolescent dosage Cinda Suppan SKIVER HAND.DE ICER ELEMENT WINDER Work Phone: [facility] 12-26-1994 measles, mumps and rubella virus vaccine Dereck Cano PA-C Work Phone: [facility] 06-06-1994 diphtheria, tetanus toxoids and acellular pertussis vaccine Dereck Cano PA-C Work Phone: [facility] 06-06-1994 haemophilus influenz ae type b vaccine, conjugate unspecified formulation Cinda Suppan SKIVER HAND.DE ICER ELEMENT WINDER Work Phone: [facility] 06-06-1994 poliovirus vaccine, inactivated Dereck Cano PA-C Work Phone: [facility] 04-12-1994 diphtheria, tetanus toxoids and acellular pertussis vaccine Dereck Cano PA-C Work Phone: [facility] 04-12-1994 haemophilus influenz ae type b vaccine, conjugate unspecified formulation Cinda Suppan SKIVER HAND.DE ICER ELEMENT WINDER Work Phone: [facility] 04-12-1994 poliovirus vaccine, inactivated Dereck Cano PA-C Work Phone: [facility] 02-15-1994 diphtheria, tetanus toxoids and acellular pertussis vaccine Dereck Cano PA-C Work Phone: [facility] 02-15-1994 haemophilus influenz ae type b vaccine, conjugate unspecified formulation Cinda Suppan SKIVER HAND.DE ICER ELEMENT WINDER Work Phone: [facility] 02-15-1994 poliovirus vaccine, inactivated Dereck Cano PA-C Work Phone: [facility] 01-17-1994 hepatitis B vaccine, pediatric or pediatric/adolescent dosage Dereck Cano PA-C Work Phone: [facility] 1993 hepatitis B vaccine, pediatric or pediatric/adolescent dosage Dereck Cano PA-C Work Phone: [facility] Payers Date Payer Category Payer Self-pay [id number] 2021 Private Health Insurance KOFFI SANTOS [id number] 2021-Present [phone] GINA [id number] MARCK LANZA [id number] Open Access [id number] 2021 Private Health Insurance [id number] 2021 Private Health Insurance [id number] 1994 Unknown [id number] Unknown [id number] Unknown [id number] Unknown [id number] Unknown [id number] Social History Date Type Detail Facility Start: 03-14-2012 End: 05-01-2025 Tobacco smoking status NHIS Never smoked tobacco [facility] Start: 05-22-2022 End: 01-07-2025 Alcohol intake Current drinker of alcohol (finding) [facility] Start: 04-07-2018 History SDOH Alcohol Comment 1-2 beers per month [facility] Start: 1995 Sex Assigned At Not on file C [facility] Start: 05-12-2022 End: 05-22-2022 Exposure to SARS-CoV-2 (event) Not sure [facility] Start: 03-14-2012 End: 01-28-2024 Tobacco use and exposure Smokeless tobacco non-user [facility] Work Phone: Start: 11-11-2022 Tobacco smoking stat us MTIS Unknown if ever smoked [facility] Work Phone: Start: 1995 Sex Assigned At Male [facility] Start: 01-28-2024 End: 02-28-2024 History of Social function [facility] Start: 01-28-2024 End: 02-28-2024 Tobacco use panel [facility] Adult Depression Screening Assessment 0 [facility] Clinical Notes 09-11-2010 to 05-01-2025 Note Date & Type Note Facility 05-01-2025 Discharge summary [facility] 05-01-2025 Discharge summary Note Date/Time May 01, 2025 8:16pm [facility] Medical Records Department [address] [place] [address] Emergency Department Summary 05/01/25 MR#: [id number] Acct: [id number] Name: DENTON JOLLEY Rep #:[id number] : 1995 29 From: Lee Gentile [...] 2 Days for wound check Print Language: Belgian Disposition Disposition: Home, Self Care What to do if you have Problems For any increased pain, shortness of breath, bleeding, nausea or vomiting, chestpain, or any unexpected problems, contact your Primary Care Provider. Call [facility] ([phone]) or report to the closest Emergency Room. Call 911 if necessary. 05/01/252015 <Electronically signed by Lee Gentile MD> Cosigner Signature (if applicable): CC: Dr. Tammy Fowler MD ~ Signed [facility] Work Phone: [phone]) 103-188105-23-2025 NoteHNO ID: [id number] Author: LINSEY VAUGHN APRN.SCRAP BALLER Service: ? Author Type: Nurse Practitioner Type: Progress Notes Filed: 03/26/2025 09:23 Note Text: [facility] Subjective Denton Jolley is a [...] or do not improve. and Recording using ambient AI software for draft documentation of the visit was discussed with the patient/authorized operations representative; all questions welcomed and answered. Patient/authorized operations representative agreed to proceed [facility] Radiology Diagnostic study note [facility] [address] [place] [address] Chest PA and Lateral MR#: [id number] Acct: [id number] Name: DENTON JOLLEY Rep #: [id number] : 1995 M 29 From: Francisco Osborn MD PCP: Dr. Tammy Fowler MD Status: REG C LI Study:Chest PA and Lateral Date of Exam: 03/26/25 Exam# [id number] Ordering Dr: Do zeynep Vaughn PROCEDURE: CHEST PA AND LATERAL 03/26/2025 REASON FOR EXAM: COUGH TECHNIQUE: Frontal and lateral views of the chest. COMPARISON: None FINDINGS: Hardware: None Heart: The heart size is normal. Mediastinum: The mediastinal contour is unremarkable. Lungs: The lungs are clear. Bones: The bones are unremarkable. RAD/Chest PA and Lateral IMPRESSION: NEGATIVE CHEST Reading Location: [place] [address] CC: SUSU Vaughn; Dr. Tammy Fowler MD ~ Assurance Analyst: Signed [facility]03-06-2025 Instructions* Patient Instructions* Cinda Caldera APRN.CNP - 01/07/2025 4:50 PM EST 1) Strattera 40 mg daily 2) DME- BP cuff sent to [employer] [facility] 3) Send me 3 BP readings in 1 or 2 weeks [facility]-2025 NoteHNO ID: [id number] Author: CINDA CALDERA APRN.[facility] Service: ? Author Type: Nurse Practitioner Type: Progress Notes Filed: 01/07/2025 16:52 Note Text: This is a 29 year old male who presents today with: Patient presents with: ADD/ADHD HISTORY OF PRESENT ILLNESS: Denton Jolley is a 29 year old male. Patient presents with: ADD/ADHD [place] like fluoxetine just numbed him out. Behavior [...] as needed for worsening/no improvement. Cinda Caldera APRN.[facility]03-06-2025 History of Present illness Narrative* Cinda Caldera APRN.[facility] - 01/07/2025 4:21 PM EST This is a 29 year old male who presents today with: Patient presents with: ADD/ADHD HISTORY OF PRESENT ILLNESS: Denton Jolley is a 29 year old male. Patient presents with: ADD/ADHD [place] like fluoxetine just numbed him out. Behavior [...] as needed for worsening/no improvement. Cinda Caldera APRN.SCRAP BALLER documented in [facility]24 Telephone encounter Note * Telephone Encounter - Ej Faria MA - 07/16/2024 4:32 PM EDT Called and left generic message on VM that Rx has been sent to Pharmacy as requested. If questions to contact office and speak with Triage Nurse. Ej Faria MA [facility]09-12-2024 Miscellaneous Notes* Telephone Encounter - Ej Faria [...] He would like a call back at [phone] when sent. documented in this encounterK[facility]09-12-2024 Telephone encounter Note * Telephone Encounter - Tammy Fowler MD - 07/16/2024 4:20 PM EDT Sorry sent [facility]09-12-2024 Telephone encounter Note* Telephone Encounter - Yoselin Dietrich - 07/16/2024 3:54 PM EDT Patient said he was told his rx fluoxetine 40 mg was sent to [facility]. It was updated in chart, but not sent. He would like a call back at [phone] when sent. [facility]09-12-2024 Telephone encounter Note* Telephone Encounter - Lori Wilkes MA - 07/16/2024 3:08 PM EDT Spoke with pt and advised needed a one moth medication follow up. He will call back when he knows his 's schedule. Lori Wilkes MA [facility]09-12-2024 Miscellaneous Notes* Telephone Encounter - Lori Wilkes [...] later. Vanessa Soria LPN documented in this encounterKet[facility]09-12-2024 Telephone encounter Note * Telephone Encounter - Tammy Fowler MD - 07/16/2024 2:34 PM EDT Rx sent. Please schedule follow up with one of us [facility]09-12-2024 Telephone encounter Note* Telephone Encounter - Vanessa Soria LPN - 07/16/2024 2:26 PM EDT Patient is wanting to increase to Fluoxetine to 40mg, feels he has leveled out, not really effects anymore. Asking for new RX to go to [place]. Denton took his last pill this AM, asking if RX could go today, Patient will check with pharmacy later. Vanessa Soria LPN [facility]08-08-2024 Instructions* Patient Instructions* Cinda Caldera APRN.SCRAP BALLER - 06/11/2024 3:57 PM EDT 1) Increase fluoxetine to 20 mg daily 2) Follow up in 3 months documented in this encounterK[facility]08-08-2024 NoteHNO ID: [id number] Author: CINDA CALDERA APRN.CNP Service: ? Author [...] as needed for worsening/no improvement. Cinda Caldera APRN.[facility]08-08-2024 History of Present illness Narrative* Cinda Caldera APRN.[facility] - 06/11/2024 3:47 PM EDT This is [...] eczema Comment: 2020 No date: Depression 06/27/2001: [facility] - PAST MEDICAL HISTORY OF Comment: [...] as needed for worsening/no improvement. Cinda Caldera APRN.SCRAP BALLER documented in this encounterK[facility]05-08-2024 Telephone encounter Note * Telephone Encounter - Whit Bradford LPN - 03/11/2024 11:49 AM EDT Patient did review this lab on [facility]. [facility]05-08-2024 Miscellaneous Notes* Telephone Encounter - Whit Bradford [...] labs were also normal. documented in this encounterKet[facility]05-06-2024 Telephone encounter Note * Telephone Encounter - Kristin Correa OCCA - 03/09/2024 1:57 PM EDT TC no answer. Left VM to return call. EVELIO Jimenes [facility]05-06-2024 Telephone encounter Note* Telephone Encounter - Cinda Caldera APRN.CNS - 03/09/2024 1:40 PM EDT Please let patient know that his testosterone levels came back and they are completely normal. No further labs needed. He is in high normal range. All other labs were also normal. [facility]04-26-2024 Instructions* Patient Instructions* Cinda Caldera APRN.CNS - 02/28/2024 4:52 PM EDT 1) Get labs 2) Start prozac 10 mg daily 3) Keep notes on irritability 4) follow up in 2 months documented in this encounterKet[facility]04-26-2024 History of Present illness Narrative* Cinda Caldera [...] Impatient Mood swings Quick temper Works at [employer] for 6 years, worked previous job for [...] agrees with the plan. documented in this encounterK[facility]03-26-2024 History of Present illness Narrative* Mara Felder APRN.SCRAP BALLER - 01/28/2024 7:42 AM EDT Subjective Cough [...] Discussed expected course of illness Mara Felder APRN.SCRAP BALLER documented in this encounterKet[facility]03-26-2024 Instructions* Patient Instructions* Mara Felder APRN.CNP - [...] days of proper treatment. documented in this encounterKettering [facility]09-28-2022 Miscellaneous Notes* Telephone Encounter - Lucero Santizo LPN - 08/01/2022 8:51 AM EDT Called patient. Verified name and date of . Informed of order and verbalizes understanding. Lucero Santizo LPN * Telephone Encounter - Giulia Laughlin - 07/31/2022 12:51 PM EDT Pt scheduled for vasectomy on Saturday and is asking for pre-medication pill to take prior to procedure. Pt has a driver service technician to and from the appointment. Dia Hooper. We are to call him to let him know once this has been sent over. Giulia Laughlin documented in this encounterKettering Health [facility]07-19-2022 History of Present illness Narrative* Dereck Cano [...] attests that he watched and understood the [facility] Vasectomy video and read and [...] AMARI Sherman, BRITTANIE PHILLIPS [place] [address] History of Past illness Narrative* Problem Noted Date Resolved Date Painful respiration 09/11/2010 04/07/2018 documented as of this encounter (statuses as of 05/22/2022) [address]08-2010 History of Past illness Narrative* Problem Noted Date Resolved Date Painful respiration 09/11/2010 04/07/2018 documented as of this encounter (statuses as of 08/01/2022) [place] [address] History of Past illness Narrative* Problem Noted Date Diagnosed Date Resolved Date Painful respiration 09/11/2010 04/07/20 18 documented as of this encounter (statuses as of 01/28/2024) [facility] Diagnosis Vasectomy evaluation- Primary Other general counseling and advice for contraceptive management documented [facility] this encounter [facility]* Diagnosis Vasectomy evaluation- Primary Other general counseling and advice for contraceptive management documented in this encounter [facility] noteNo assessment information availableWWadsworth-[facility] Work Phone: Evaluation note* Diagnosis Sinobronchitis- Primary Unspecified sinusitis (chronic) Middle ear effusion, left documented in this encounter [facility]* Diagnosis Anxiety with depression- Primary Irritability documented in this encounter [facility]* Diagnosis Anxiety with depression Irritability documented [facility]* Diagnosis Anxiety with depression Irritability documented [facility] this [facility]* Diagnosis Irritability- Primary Anxiety with depression documented in this encounter [facility] note* Diagnosis Elevated blood pressure reading without diagnosis of hypertension- Primary Screening for depression Encounter for screening examination for other mental health and behavioral disorders ADHD (attention deficit hyperactivity disorder), predominantly hyperactive impulsive type Attention deficit disorder with hyperactivity documented in this encounter [facility] for referral (narrative)No reason for referral information availableWWadsworth-Rittman Hospital Work Phone: Summary Purpose Family History No Family History Records FoundNo Family History Records FoundNo Family History Records Found Advance Directives Documents on File Type Date Recorded Patient [place] Puller Expl anation Advance Directive(s) 07/23/2020 11:21 PM Advance Directive Response Recorded Date/ Time Advance Directives No January 11 021 9:47am Living Will No November 11 3:42pm Power of Industrial Renderer No November 11 3:42pm Advance Directive Response Recorded Date/ Time Advance Directives No January 11 10:47am Advance Directive Response Recorded Date/ Time Do you have a Healthcare Power of Industrial Renderer? No May 01, 2025 7:28pm Advance Directives No January 11 10:47am Chief Complaint and Reason for Visit Chief Complaint left thumb injury Chief Complaint Admit Date STAT ORDER/FAX RESULTS [phone] March 26, 2025 7:56am Chief Complaint Admit Date STAT ORDER/FAX RESULTS [phone] March 26, 2025 7:56am bite May 01, 2025 7:08 pm Chief Complaint Admit Date STAT ORDER/FAX RESULTS [phone] March 26, 2025 7:56am bite May 01, 2025 7:08 pm meds only May 04, 2025 5:49p m Chief Complaint Admit Date STAT ORDER/FAX RESULTS [phone] March 26, 2025 7:56am bite May 01, 2025 7:08 pm meds only May 04, 2025 5:49p m meds only May 09, 2025 3:37p m Chief Complaint Admit Date STAT ORDER/FAX RESULTS [phone] March 26, 2025 7:56am bite May 01, 2025 7:08 pm meds only May 04, 2025 5:49p m meds only May 09, 2025 3:37p m MEDS ONLY May 16, 2025 3:44 pm Additional Source Comments (unrecognized sect ion and content) No Status Records FoundNo Status Records FoundNo Status Records Found INFORMATION SOURCE (unrecogn ized section and content) DATE CREATED AUTHOR 07/23/2020 [facility] DATE CREATED AUTHOR AUTHOR'S ORGANIZ ATION 04/01/2025 [facility] DATE CREATED AUTHOR AUTHOR'S ORGANIZ ATION 05/12/2025 [facility] Source Comments (unrecognize d section and content) In the event this informatio n is protected by the Federal Confidentiality of Alcohol and Drug Abuse Patient Records regulations: The Federal rules restrict any use of the information to criminally investigate or prosecute any alcohol or drug abuse patient.[facility] TroyIn the event this information is protected by the Federal Confidentiality of Alcohol and Drug Abuse Patient Records regulations: The Federal rules restrict any use of the information to criminally investigate or prosecute any alcohol or drug abuse patient.[facility] TroyIn the event this information is protected by the Federal Confidentiality of Alcohol and Drug Abuse Patient Records regulations: The Federal rules restrict any use of the information to criminally investigate or prosecute any alcohol or drug abuse patient.[facility] TroyIn the event this information is protected by the Federal Confidentiality of Alcohol and Drug Abuse Patient Records regulations: The Federal rules restrict any use of the information to criminally investigate or prosecute any alcohol or drug abuse patient.[facility] TroyIn the event this information is protected by the Federal Confidentiality of Alcohol and Drug Abuse Patient Records regulations: The Federal rules restrict any use of the information to criminally investigate or prosecute any alcohol or drug abuse patient.[facility] TroyIn the event this information is protected by the Federal Confidentiality of Alcohol and Drug Abuse Patient Records regulations: The Federal rules restrict any use of the information to criminally investigate or prosecute any alcohol or drug abuse patient.[facility] TroyIn the event this information is protected by the Federal Confidentiality of Alcohol and Drug Abuse Patient Records regulations: The Federal rules restrict any use of the information to criminally investigate or prosecute any alcohol or drug abuse patient.[facility] TroyIn the event this information is protected by the Federal Confidentiality of Alcohol and Drug Abuse Patient Records regulations: The Federal rules restrict any use of the information to criminally investigate or prosecute any alcohol or drug abuse patient.[facility] TroyIn the event this information is protected by the Federal Confidentiality of Alcohol and Drug Abuse Patient Records regulations: The Federal rules restrict any use of the information to criminally investigate or prosecute any alcohol or drug abuse patient.[facility] Reason for Visit (unrecogniz ed section and content) Reason Comments Vasectomy-1 Reason Comments Orders Reason Comments Cough Cough, ST and ADAMS x 5 days Reason Comments Results Reason Comments Follow Up Reason Comments Rx updated, but not sent to pharmacy Reason Comments ADD/ADHD Care Teams (unrecognized sec tion and content) Senior Counsel Relationship Specialty Start Date End Date Tammy Fowler MD [address] [place], [place] [id number] PCP - General Family Practice 10/04/16 Senior Counsel Relationship Specialty Start Date End Date Tammy Fowler MD [address] [place], [place] [id number] PCP - General Family Medicine 10/04/16 Senior Counsel Relationship Specialty Start Date End Date Tammy Fowler MD [address] [place], [place] [id number] PCP - General Family Medicine 10/04/16 Senior Counsel Relationship Specialty Start Date End Date Tammy Fowler MD [address] [place] [address] PCP - General Family Medicine 10/04/16 Senior Counsel Relationship Specialty Start Date End Date Tammy Fowler MD [address] [place] [address] PCP - General Family Medicine 10/04/16 Senior Counsel Relationship Specialty Start Date End Date Tammy Fowler MD [address] [place] [address] PCP - General Family Medicine 10/04/16 Senior Counsel Relationship Specialty Start Date End Date Tammy Fowler MD [address] [place] [address] PCP - General Family Medicine 10/04/16 Senior Counsel Relationship Specialty Start Date End Date Tammy Fowler MD [address] [place] [address] PCP - General Family Medicine 10/04/16 Sybil Haley APRN.SCRAP BALLER [address] [place] [address] Employment Services Director Family Medicine 10/12/24 Cinda Caldera APRN.SCRAP BALLER [address] [place] [address] Employment Services Director Family Medicine 10/12/24 Team Status: Active Member Role Status Dates No Primary Care Physician Family Provider Active Dr. Tammy Fowler MD Primary Care Provider Active Team Status: Inactive Member Role Status Dates Dr. Tammy Fowler MD Primary Care Provider Active Start: March 26, 2025 End: March 26, 2025 Linsey Vaughn SERICULTURE TEACHER-C Attending Provider Active Start: March 26, 2025 End: March 26, 2025 Linsey Vaughn SERICULTURE TEACHER-C Referring Provider Active Start: March 26, 2025 [...] Inactive Member Role/Relationship Status Dates Dr. Tammy Folwer MD Primary Care Provider Active Start: May [...] May 09, 2025 End: May 09, 2025 Team Status: Inactive Member Role/Relationship Status Dates Dr. Tammy Fowler MD Primary Care Provider Active Start: May 09, 2025 End: May 09, 2025 Dr. Lee Gentile MD Attending Provider Active Sta rt: May 09, 2025 End: May 09, 2025 Team Status: Inactive Member Role/Relationship Status Dates Dr. Tammy Fowler MD Primary Care Provider Active Start: May 16, 2025 End: May 16, 2025 Dr. Lee Gentile MD Emergency Provider Active Sta rt: May 16, 2025 End: May 16, 2025 Goals (unrecognized section and content) Goals [...] BE BASED ON THE PRIMARY CLINICAL RECORDS. [facility] [employer] [facility]. provides no warranty or guarantee of the accuracy or completeness of information in this document.
== END 2025-05-16 16:26 | disposition home or self-care (01) ==
PROVIDERS: PCP Family Medicine; Visit Provider Emergency Medicine
DX: Z23 Encounter for immunization (principal)
CPT/HCPCS: 90675; 96372